=== PATIENT | female | born 1955 | race African-American/Black ===

== ENCOUNTER 2016-11-25 13:07 | Emergency (ER) | payer OTHER, MEDICARE ==
--- NOTE | 2016-11-25 13:19 | ER Document Report ---
ED Medical Screen (RME) - General Stated Complaint: BODY PAIN Time seen by provider: 13:16 Mode of Arrival: Wheelchair Information source: Patient Notes: 61-year-old female presents to ED for pain and body aches but denies fevers. She has a history of multiple sclerosis she thinks it is flared up on her right now she states usually when she flares up like that she needs Solu-Medrol and she has not had any since October of last year. States she's had MS since . States her primary doctor is Dr. Willingham and he sent. To the emergency room. I have greeted and performed a rapid initial assessment of this patient. A comprehensive ED assessment and evaluation of the patient, analysis of test results and completion of medical decision making process will be conducted by an additional ED providers. TRAVEL OUTSIDE OF THE [place] IN LAST 30 DAYS: No - Related Data Allergies/Adverse Reactions: No Known Allergies Allergy (Verified 02/09/15 05:53) Past Medical History - Past Medical History Cardiac Medical History: Reports: Hx Hypertension Musculoskeltal Medical History: Reports Hx Multiple Sclerosis, Reports Hx Musculoskeletal Trauma Psychiatric Medical History: Denies: Hx Depression Past Surgical History: Reports: Hx Hysterectomy, Hx Orthopedic Surgery - right elbow - Immunizations Hx Diphtheria, Pertussis, Tetanus Vaccination: Yes Physical Exam - Vital signs Vitals: Temp Pulse Resp BP Pulse Ox 98.1 F 60 14 120/70 97 11/25/16 13:14 11/25/16 13:14 11/25/16 13:14 11/25/16 13:14 11/25/16 13:14 Course - Vital Signs Vital signs: Temp Pulse Resp BP Pulse Ox 98.1 F 60 14 120/70 97 11/25/16 13:14 11/25/16 13:14 11/25/16 13:14 11/25/16 13:14 11/25/16 13:14
[2016-11-25] MEDS ORDERED: METHYLPREDNISOLONE INJ 1000 MG VIAL IV ONE (16:20)
--- NOTE | 2016-11-25 19:10 | ER Document Report ---
ED General - General Chief Complaint: Pain All Over Stated Complaint: BODY PAIN Mode of Arrival: Wheelchair Information source: Patient Notes: 61-year-old female presents to the emergency department complaining of generalized body aches. Reports generalized skin sensitivity and pain/ paresthesias. Patient reports history of MS since 1992 and states has similar intermittent episodes of flareups. Reports has taken ibuprofen at home with minimal relief. called her primary care provider today who instructed her to come to the emergency department for dose of Solu-Medrol. Juli has appointment with PCP on Thursday. Denies fever, chest pain, shortness of breath, or any other systemic or abnormal symptoms for her. TRAVEL OUTSIDE OF THE [place] IN LAST 30 DAYS: No - HPI Onset/Duration: Intermittent, Persistent Quality of pain: Achy Severity: Moderate Pain Level: 3 Associated symptoms: Body/muscle aches Similar symptoms previously: Yes Recently seen / treated by doctor: Yes - Related Data Allergies/Adverse Reactions: No Known Allergies Allergy (Verified 11/25/16 13:16) Past Medical History - General Information source: Patient - Social History Smoking Status: Never Smoker Chew tobacco use (# tins/day): No Drug Abuse: None Lives with: Family Family History: Reviewed & Not Pertinent Patient has suicidal ideation: No Patient has homicidal ideation: No - Past Medical History Cardiac Medical History: Reports: Hx Hypertension Renal/ Medical History: Denies: Hx Peritoneal Dialysis Musculoskeltal Medical History: Reports Hx Multiple Sclerosis, Reports Hx Musculoskeletal Trauma Psychiatric Medical History: Denies: Hx Depression Past Surgical History: Reports: Hx Hysterectomy, Hx Orthopedic Surgery - right elbow - Immunizations Hx Diphtheria, Pertussis, Tetanus Vaccination: Yes Hx Pneumococcal Vaccination: 04/10/14 Review of Systems - Review of Systems Constitutional: No symptoms reported EENT: No symptoms reported Cardiovascular: No symptoms reported Respiratory: No symptoms reported Gastrointestinal: No symptoms reported Genitourinary: No symptoms reported Female Genitourinary: No symptoms reported Musculoskeletal: See HPI Skin: No symptoms reported Hematologic/Lymphatic: No symptoms reported Neurological/Psychological: No symptoms reported -: Yes All other systems reviewed and negative Physical Exam - Vital signs Vitals: Temp Pulse Resp BP Pulse Ox 98.1 F 60 14 120/70 97 11/25/16 13:14 11/25/16 13:14 11/25/16 13:14 11/25/16 13:14 11/25/16 13:14 Interpretation: Normal - General General appearance: Appears well, Alert In distress: None - HEENT Head: Normocephalic, Atraumatic Eyes: Normal Pupils: PERRL - Respiratory Respiratory status: No respiratory distress Chest status: Nontender Breath sounds: Normal Chest palpation: Normal - Cardiovascular Rhythm: Regular Heart sounds: Normal auscultation Murmur: No Pulses: Normal: Radial Normal capillary refill: Yes - Abdominal Inspection: Normal Distension: No distension Bowel sounds: Normal Tenderness: Nontender Organomegaly: No organomegaly - Back Back: Normal, Nontender - Extremities General upper extremity: Normal inspection, Nontender, Normal color, Normal ROM , Normal strength, Normal temperature. No: Tender, Edema General lower extremity: Normal inspection, Nontender, Normal color, Normal ROM , Normal strength, Normal temperature, Normal weight bearing. No: Tender, Edema , Betty's sign - Neurological Neuro grossly intact: Yes Cognition: Normal Orientation: AAOx4 [place] Coma Scale Eye Opening: Spontaneous [place] Coma Scale Verbal: Oriented [place] Coma Scale Motor: Obeys Commands Mary Ann Coma Scale Total: 15 Speech: Normal Motor strength normal: LUE, RUE, LLE, RLE Sensory: Normal - Psychological Associated symptoms: Normal affect, Normal mood - Skin Skin Temperature: Warm Skin Moisture: Dry Skin Color: Normal Skin Turgor: Elastic Course - Re-evaluation Re-evalutation: 11/25/16 18:00 Patient hemodynamically stable, in no distress, afebrile, and appears well- hydrated. Physical exam unremarkable and patient reports no other subjective new or abnormal complaints aside from her usual flareup s/s. Patient was given 1 g Solu-Medrol IV dose and prescribed prednisone taper. Patient appears so for discharge and agrees to follow-up with primary care provider on Thursday with whom she has appointment and return to the emergency Department at any time for any worsening symptoms or concerns. Pt presentation, findings, ED care, and plan were discussed with ED physician Dr. Potter who concurs with evaluation and treatment plan. - Vital Signs Vital signs: Temp Pulse Resp BP Pulse Ox 98.5 F 68 14 116/72 96 11/25/16 19:29 11/25/16 19:29 11/25/16 19:29 11/25/16 19:29 11/25/16 19:29 Discharge - Discharge Clinical Impression: Multiple sclerosis exacerbation Condition: Stable Disposition: HOME, SELF-CARE Instructions: Steroid Medication Injection Additional Instructions: Keep your appointment and follow-up with your primary care provider this week as discussed. Return to the emergency department for any worsening symptoms or any concerns. Prescriptions: Prednisone [Deltasone 10 mg Tablet] 10 mg PO ASDIR PRN #21 tablet PRN Reason: Referrals: DARYL PEREZ MD [Primary Care Provider] - 11/28/16
[2016-11-25 19:30] VITALS: BP 116/72
== END 2016-11-25 19:25 | disposition home or self-care (01) ==
LOC: ER 13:07
DX: G35 Multiple sclerosis (principal); I10 Essential (primary) hypertension
CPT/HCPCS: 99283; 96374; J2930

== ENCOUNTER 2017-10-03 15:09 | Emergency (ER) | payer OTHER, MEDICARE ==
--- NOTE | 2017-10-03 15:33 | ER Document Report ---
ED Medical Screen (RME) - General Chief Complaint: General Weakness Stated Complaint: SLURRED SPEECH Time Seen by Provider: 10/03/17 15:25 Notes: Patient thinks she may be having a flare of her MS this morning. She says that she feels a little bit more confused and off balance than usual. She appears to be wheelchair bound. She has not been sick in any way recently. She had one other flareup last month, but it cleared up in a couple of hours and the patient did not require steroids for her flare. Not running any fever. No vomiting and no diarrhea. No UTI symptoms. No cough or cold or chest congestion. Patient is on weekly Avonex injection for her MS. TRAVEL OUTSIDE OF THE [place] IN LAST 30 DAYS: No - Related Data Allergies/Adverse Reactions: No Known Allergies Allergy (Verified 10/03/17 15:11) Past Medical History - Social History Chew tobacco use (# tins/day): No Frequency of alcohol use: None Drug Abuse: None - Past Medical History Cardiac Medical History: Reports: Hx Hypertension Renal/ Medical History: Denies: Hx Peritoneal Dialysis Musculoskeltal Medical History: Reports Hx Multiple Sclerosis, Reports Hx Musculoskeletal Trauma Psychiatric Medical History: Denies: Hx Depression Past Surgical History: Reports: Hx Hysterectomy, Hx Orthopedic Surgery - right elbow - Immunizations Hx Diphtheria, Pertussis, Tetanus Vaccination: Yes Physical Exam - Vital signs Vitals: Temp Pulse Resp BP Pulse Ox 98.1 F 71 12 128/71 H 98 10/03/17 15:15 10/03/17 15:15 10/03/17 15:15 10/03/17 15:15 10/03/17 15:15 Course - Vital Signs Vital signs: Temp Pulse Resp BP Pulse Ox 98.1 F 71 12 128/71 H 98 10/03/17 15:15 10/03/17 15:15 10/03/17 15:15 10/03/17 15:15 10/03/17 15:15
--- NOTE | 2017-10-03 15:58 | ER Document Report ---
ED General - General Chief Complaint: General Weakness Stated Complaint: SLURRED SPEECH Time Seen by Provider: 10/03/17 15:25 Notes: The patient is a 62-year-old female, past medical history, presents with an episode of mild slurred speech since 1300 today. She has had this multiple times in the past and her neurologist has attributed it to an MS flare. She says that she receives 1 g of Solu-Medrol with the prednisone taper and this usually helps her symptoms. Patient denies any other new neurologic symptoms and denies fevers, headache, head injury, chest pain, shortness of breath, blurry vision, increased weakness, numbness, tingling, abdominal pain or urinary symptoms. TRAVEL OUTSIDE OF THE [place] IN LAST 30 DAYS: No - Related Data Allergies/Adverse Reactions: No Known Allergies Allergy (Verified 10/03/17 15:11) Past Medical History - General Information source: Patient - Social History Smoking Status: Former Smoker Chew tobacco use (# tins/day): No Frequency of alcohol use: None Drug Abuse: None Family History: Reviewed & Not Pertinent Patient has suicidal ideation: No Patient has homicidal ideation: No - Past Medical History Cardiac Medical History: Reports: Hx Hypertension Renal/ Medical History: Denies: Hx Peritoneal Dialysis Musculoskeltal Medical History: Reports Hx Multiple Sclerosis, Reports Hx Musculoskeletal Trauma Psychiatric Medical History: Denies: Hx Depression Past Surgical History: Reports: Hx Hysterectomy, Hx Orthopedic Surgery - right elbow - Immunizations Hx Diphtheria, Pertussis, Tetanus Vaccination: Yes Hx Pneumococcal Vaccination: 04/10/14 Review of Systems - Review of Systems Notes: REVIEW OF SYSTEMS: CONSTITUTIONAL: -fevers, -chills EENT: -eye pain, -difficulty swallowing, -nasal congestion CARDIOVASCULAR:-chest pain, -syncope. RESPIRATORY: -cough, -SOB GASTROINTESTINAL: -abdominal pain, -nausea, -vomiting, -diarrhea GENITOURINARY: -dysuria, -hematuria MUSCULOSKELETAL: -back pain, -neck pain SKIN: -rash or skin lesions. HEMATOLOGIC: -easy bruising or bleeding. LYMPHATIC: -swollen, enlarged glands. NEUROLOGICAL: -altered mental status or loss of consciousness, -headache, + slurred speech, +increased weakness or numbness PSYCHIATRIC: -anxiety, -depression. ALL OTHER SYSTEMS REVIEWED AND NEGATIVE. Physical Exam - Vital signs Vitals: Temp Pulse Resp BP Pulse Ox 98.1 F 71 12 128/71 H 98 10/03/17 15:15 10/03/17 15:15 10/03/17 15:15 10/03/17 15:15 10/03/17 15:15 - Notes Notes: PHYSICAL EXAMINATION: GENERAL: Well-appearing, well-nourished and in no acute distress. HEAD: Atraumatic, normocephalic. EYES: Pupils equal round and reactive to light, extraocular movements intact, sclera anicteric, conjunctiva are normal. ENT: nares patent, oropharynx clear without exudates. Moist mucous membranes. NECK: Normal range of motion, supple without lymphadenopathy LUNGS: Breath sounds clear to auscultation bilaterally and equal. No wheezes rales or rhonchi. HEART: Regular rate and rhythm without murmurs ABDOMEN: Soft, nontender, normoactive bowel sounds. No guarding, no rebound. No masses appreciated. EXTREMITIES: Chronically contracted upper extremities. NEUROLOGICAL: Cranial nerves grossly intact. Mild slurring of speech. No acute sensory changes, PSYCH: Normal mood, normal affect. SKIN: Warm, Dry, normal turgor, no rashes or lesions noted. Course - Re-evaluation Re-evalutation: Patient with mild slurring of speech that started earlier today. She has no other acute neuro findings at this time. said that she has had multiple episodes like this that have been attributed to her MS flare. Attempted to contact her neurologist at the [place], but unsuccessful. Patient given a dose of 1 g Solu-Medrol and will begin a prednisone taper, as she says this usually controls her symptoms. Considered a CVA, but with multiple recurring episodes, this is most likely a MS flare. Pt's mild slurring of speech had already resolved after her Solumedrol in the ER. Given very strict return precautions and she understands. - Vital Signs Vital signs: Temp Pulse Resp BP Pulse Ox 98.1 F 65 16 114/76 97 10/03/17 19:01 10/03/17 19:01 10/03/17 19:01 10/03/17 19:01 10/03/17 19:01 - Laboratory Result Diagrams: 10/03/17 15:45 10/03/17 17:20 Laboratory results interpreted by me: 10/03/17 10/03/17 15:45 17:20 RDW 16.2 H Creatinine 0.50 L Calcium 10.3 H Discharge - Discharge Clinical Impression: Slurred speech, Multiple sclerosis exacerbation Condition: Stable Additional Instructions: Take the full course of steroids and follow-up with your neurologist for further evaluation and treatment. Return to the ER if you have any worsening symptoms or any other concerns. Prescriptions: Prednisone [Deltasone 10 mg Tablet] 10 mg PO ASDIR PRN #21 tablet PRN Reason: Referrals: JOSE TUCKER MD [ACTIVE STAFF] - Follow up as needed
[2017-10-03] MEDS ORDERED: METHYLPREDNISOLONE INJ 1000 MG VIAL IV ONE (16:08)
[2017-10-03 16:21] LABS: ABSOLUTE EOSINOPHILS # (AUTO) 0.1 10^3/uL (0.0-0.6); ABSOLUTE LYMPHOCYTES (AUTO) 1.7 10^3/uL (0.5-4.7); ABSOLUTE MONOCYTES (AUTO) 0.4 10^3/uL (0.1-1.4); EOSINOPHILS % (AUTO) 2.4 % (0-6); HEMATOCRIT 40.5 % (36.0-47.0); HEMOGLOBIN 13.5 g/dL (12.0-15.5); LYMPHOCYTES % (AUTO) 39.9 % (13-45); MEAN CORPUSCULAR HEMOGLOBIN 29.5 pg (27.0-33.4); MEAN CORPUSCULAR HGB CONC 33.2 g/dL (32.0-36.0); MEAN CORPUSCULAR VOLUME 89 fl (80-97); MONOCYTES % (AUTO) 9.4 % (3-13); RED BLOOD COUNT 4.57 10^6/uL (3.72-5.28); RED CELL DISTRIBUTION WIDTH 16.2 % (11.5-14.0); SEGMENTED NEUTROPHILS % (AUTO) 47.3 % (42-78); WHITE BLOOD COUNT 4.3 10^3/uL (4.0-10.5)
[2017-10-03 18:20] LABS: ALANINE AMINOTRANSFERASE 22 U/L (9-52); ALBUMIN 4.6 g/dL (3.5-5.0); ALKALINE PHOSPHATASE 104 U/L (38-126); ANION GAP 13 (5-19); ASPARTATE AMINO TRANSFERASE 20 U/L (14-36); BILIRUBIN,DIRECT 0.2 mg/dL (0.0-0.4); BILIRUBIN,TOTAL 0.2 mg/dL (0.2-1.3); BLOOD UREA NITROGEN 13 mg/dL (7-20); CALCIUM 10.3 mg/dL (8.4-10.2); CARBON DIOXIDE 23 mmol/L (22-30); CHLORIDE 107 mmol/L (98-107); GLUCOSE 109 mg/dL (75-110); POTASSIUM 4.5 mmol/L (3.6-5.0); SODIUM 143.4 mmol/L (137-145); TOTAL PROTEIN 7.8 g/dL (6.3-8.2)
[2017-10-03 19:01] VITALS: BP 114/76
== END 2017-10-03 19:50 | disposition home or self-care (01) ==
LOC: ER 15:09
DX: G35 Multiple sclerosis (principal); R47.81 Slurred speech; R53.1 Weakness; Z79.899 Other long term (current) drug therapy; Z87.891 Personal history of nicotine dependence
CPT/HCPCS: 99284; 96374; 36415; 85025; 80053; J2930

== ENCOUNTER 2017-12-02 07:43 | Inpatient (IN) | payer OTHER, MEDICARE ==
--- NOTE | 2017-12-02 07:58 | ER Document Report ---
ED Neuro Symptoms/Deficit - General Chief Complaint: Altered Mental Status Stated Complaint: ALTERED MENTAL STATUS Time Seen by Provider: 12/02/17 07:58 Notes: 62-year-old female. History of MS. Has had worsening slurred speech and headache over the last several days. states that she has had this before and it is usually worsening of her MS. Followed by Dr. Carrion with neurology. Primary care doctor at the [facility] in May. No fevers. Does have a healing sacral decubitus which according to is much better than before. No other lesions reported. Speech seems to be more slurred. Increased weakness in her hands. Patient is paralyzed from the neck down. TRAVEL OUTSIDE OF THE [place] IN LAST 30 DAYS: No - HPI Patient complains to provider of: Paresthesia, Speech Impairment, Weakness Symptoms are: Constant, Worse/persistent - Related Data Allergies/Adverse Reactions: No Known Allergies Allergy (Verified 12/02/17 07:45) Past Medical History - General Information source: Patient, Relative - Social History Smoking Status: Never Smoker Cigarette use (# per day): No Frequency of alcohol use: None Drug Abuse: None Lives with: Spouse/Significant other Family History: Reviewed & Not Pertinent - Past Medical History Cardiac Medical History: Reports: Hx Hypertension Renal/ Medical History: Denies: Hx Peritoneal Dialysis Musculoskeltal Medical History: Reports Hx Multiple Sclerosis, Reports Hx Musculoskeletal Trauma Psychiatric Medical History: Denies: Hx Depression Past Surgical History: Reports: Hx Hysterectomy, Hx Orthopedic Surgery - right elbow - Immunizations Hx Diphtheria, Pertussis, Tetanus Vaccination: Yes Hx Pneumococcal Vaccination: 04/10/14 Review of Systems - Review of Systems Constitutional: Weakness. denies: Chills, Fever, Malaise EENT: Blurred vision. denies: Ear pain, Throat swelling Cardiovascular: denies: Chest pain, Palpitations, Heart racing Respiratory: denies: Cough, Hurts to breathe Physical Exam - Vital signs Vitals: Temp Pulse Resp BP Pulse Ox 98.9 F 72 18 142/83 H 98 12/02/17 07:48 12/02/17 07:48 12/02/17 07:48 12/02/17 07:48 12/02/17 07:48 Interpretation: Normal - General General appearance: Appears well, Alert - HEENT Head: Normocephalic, Atraumatic Eyes: Normal Pupils: PERRL - Respiratory Respiratory status: No respiratory distress Chest status: Nontender Breath sounds: Rales Chest palpation: Normal - Cardiovascular Rhythm: Regular Heart sounds: Normal auscultation Murmur: No - Abdominal Inspection: Normal Distension: No distension Bowel sounds: Normal Tenderness: Nontender Organomegaly: No organomegaly - Back Back: Normal, Nontender - Extremities General upper extremity: Normal inspection, Nontender, Normal color, Normal ROM , Normal temperature General lower extremity: Normal inspection, Nontender, Normal color, Normal ROM , Normal temperature, Normal weight bearing. No: Betty's sign - Neurological Neuro grossly intact: Yes Cognition: Normal Orientation: AAOx4 [place] Coma Scale Eye Opening: Spontaneous Sensory: Normal Notes: She with difficulty with speech, has paralysis noted of the upper and lower extremities. - Psychological Associated symptoms: Normal affect, Normal mood - Skin Skin Temperature: Warm Skin Moisture: Dry Skin Color: Normal Course - Re-evaluation Re-evalutation: 12/02/17 09:51 More than likely this represents MS flare. Will get CT, urinalysis, blood work. Will attempt to get a steroid dose. Will attempt to contact patient's neurologist at this time. 12/02/17 13:25 Uncertain exactly what is going on at this time. Likely MS flare but does have some rales in the bilateral lower lobes. Will get a CT scan of the chest. CT head. Labs and reassess. Will give steroid bolus. Holding on fluids at this time. 12/02/17 13:26 Consulted the hospitalist. Will admit to the hospital at this time. CT scan of the chest pending. - Vital Signs Vital signs: Temp Pulse Resp BP Pulse Ox 99.2 F 77 18 133/65 H 98 12/02/17 11:47 12/02/17 11:47 12/02/17 11:47 12/02/17 11:47 12/02/17 11:47 - Laboratory Result Diagrams: 12/02/17 11:11 12/02/17 11:11 Laboratory results interpreted by me: 12/02/17 12/02/17 11:11 11:11 RDW 16.5 H Seg Neutrophils % 81.7 H Lymphocytes % 10.9 L Alkaline Phosphatase 131 H Discharge - Discharge Clinical Impression: Multiple sclerosis exacerbation Condition: Good Disposition: ADMITTED INPATIENT Admitting Provider: Hospitalist - Dr. Magdaleno Unit Admitted: [facility]
--- NOTE | 2017-12-02 09:31 | RADIOLOGY REPORT (SQ) ---
EXAM DESCRIPTION: CHEST SINGLE VIEW COMPLETED DATE/TIME: 12/02/2017 9:10 am REASON FOR STUDY: altered COMPARISON: None. EXAM PARAMETERS: NUMBER OF VIEWS: One view. TECHNIQUE: Single frontal radiographic view of the chest acquired. RADIATION DOSE: NA LIMITATIONS: None. FINDINGS: LUNGS AND PLEURA: There is bibasilar infiltrate or atelectasis. MEDIASTINUM AND HILAR STRUCTURES: No masses. Contour normal. HEART AND VASCULAR STRUCTURES: The heart is borderline in size. Pulmonary vasculature is normal. BONES: No acute findings. HARDWARE: None in the chest. OTHER: There is an ovoid radiographic artifact overlying the right lower chest. IMPRESSION: Bibasilar infiltrate or atelectasis. Otherwise, no significant abnormality seen. TECHNICAL DOCUMENTATION: JOB ID: [id number] 2010 [employer]- All Rights Reserved
--- NOTE | 2017-12-02 10:13 | RADIOLOGY REPORT (SQ) ---
EXAM DESCRIPTION: CT HEAD WITHOUT COMPLETED DATE/TIME: 12/02/2017 9:46 am REASON FOR STUDY: altered, hx of MS COMPARISON: MRI of the brain with contrast 07/09/2018. TECHNIQUE: Axial images acquired through the brain without intravenous contrast. Images reviewed wi th bone, brain and subdural windows. Images stored on PACS. All CT scanners at this facility use dose modulation, iterative reconstruction, and/or weight based d osing when appropriate to reduce radiation dose to as low as reasonably achievable (ALARA). [facility]: Dose Right [facility]: CareDose [facility]: Dose Right [facility]: Teradose 4D [facility]: Smart [employer] RADIATION DOSE: CT Rad equipment meets quality standard of care and radiation dose reduction techniq ues were employed. CTDIvol: 64.6 mGy. DLP: 1163 mGy-cm. mGy. LIMITATIONS: None. FINDINGS: VENTRICLES: Normal size and contour. CEREBRUM: There are vague areas of decreased attenuation noted in the subcortical and periventricular white matter compatible with demyelinating disease better visualized on prior MRI. POSTERIOR FOSSA AND CEREBELLUM: : Previously noted foci of signal alteration on MRI within the middl e cerebral peduncle, basilar vania, and cerebral peduncle is a not well visualized. EXTRAAXIAL SPACES: No fluid collections. No masses. ORBITS AND GLOBE: No intra- or extraconal masses. Normal contour of globe without masses. CALVARIUM: No fracture. PARANASAL SINUSES: No fluid or mucosal thickening. SOFT TISSUES: No mass or hematoma. 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 IMPRESSION: Finding compatible with a known history of demyelinating disease. 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 COMMENT: Quality ID # [id number]: Final reports with documentation of one or more dose reduction techniques (e.g., Automated exposure control, adjustment of the mA and/or kV according to patient size, use of iterative reconstruction technique) TECHNICAL DOCUMENTATION: JOB ID: [id number]- All Rights Reserved
[2017-12-02 10:28] LABS: APPEARANCE,URINE SLIGHTLY-CLOUDY; BILIRUBIN,URINE NEGATIVE (NEGATIVE); COLOR,URINE YELLOW; GLUCOSE, URINE NEGATIVE (NEGATIVE); KETONES,URINE NEGATIVE (NEGATIVE); LEUKOCYTE ESTERASE,URINE NEGATIVE (NEGATIVE); NITRITE,URINE NEGATIVE (NEGATIVE); PROTEIN,URINE NEGATIVE (NEGATIVE); URINE SPECIFIC GRAVITY 1.017; UROBILINOGEN,URINE NEGATIVE mg/dL (<2.0)
[2017-12-02] MEDS ORDERED: METHYLPREDNISOLONE INJ 1000 MG VIAL IV ONE (11:07)
[2017-12-02 11:30] LABS: ABSOLUTE LYMPHOCYTES (AUTO) 0.7 10^3/uL (0.5-4.7); ABSOLUTE MONOCYTES (AUTO) 0.4 10^3/uL (0.1-1.4); ABSOLUTE NEUT (AUTO) 5.4 10^3/uL (1.7-8.2); BASOPHILS % (AUTO) 0.6 % (0-2); EOSINOPHILS % (AUTO) 0.6 % (0-6); HEMATOCRIT 37.9 % (36.0-47.0); LYMPHOCYTES % (AUTO) 10.9 % (13-45); MEAN CORPUSCULAR HEMOGLOBIN 29.3 pg (27.0-33.4); MEAN CORPUSCULAR HGB CONC 34.2 g/dL (32.0-36.0); MEAN CORPUSCULAR VOLUME 86 fl (80-97); MONOCYTES % (AUTO) 6.2 % (3-13); PLATELET COUNT 192 10^3/uL (150-450); RED BLOOD COUNT 4.42 10^6/uL (3.72-5.28); RED CELL DISTRIBUTION WIDTH 16.5 % (11.5-14.0); SEGMENTED NEUTROPHILS % (AUTO) 81.7 % (42-78); TOTAL CELLS COUNTED % (AUTO) 100 %; WHITE BLOOD COUNT 6.6 10^3/uL (4.0-10.5)
[2017-12-02 11:45] LABS: ALANINE AMINOTRANSFERASE 28 U/L (9-52); ALBUMIN 4.4 g/dL (3.5-5.0); ALKALINE PHOSPHATASE 131 U/L (38-126); ANION GAP 10 (5-19); ASPARTATE AMINO TRANSFERASE 31 U/L (14-36); BILIRUBIN,DIRECT 0.2 mg/dL (0.0-0.4); BILIRUBIN,TOTAL 0.4 mg/dL (0.2-1.3); BLOOD UREA NITROGEN 13 mg/dL (7-20); CALCIUM 9.8 mg/dL (8.4-10.2); CARBON DIOXIDE 25 mmol/L (22-30); CHLORIDE 102 mmol/L (98-107); GLUCOSE 101 mg/dL (75-110); SODIUM 137.3 mmol/L (137-145); TOTAL PROTEIN 7.6 g/dL (6.3-8.2)
[2017-12-02] MEDS ORDERED: NORMAL SALINE 1000 ML 1,000 ML IV ONE (12:31)
[2017-12-02] MEDS ORDERED: KETOROLAC TROMETHAMINE INJ/PF 30 MG/1 ML SDV IV ONE (12:52)
--- NOTE | 2017-12-02 13:58 | RADIOLOGY REPORT (SQ) ---
EXAM DESCRIPTION: CT CHEST WITHOUT COMPLETED DATE/TIME: 12/02/2017 1:36 pm REASON FOR STUDY: sob COMPARISON: 10/07/2015 TECHNIQUE: CT scan performed of the chest without intravenous contrast. Images reviewed with lung, soft tissue and bone windows. Reconstructed coronal and sagittal MPR images reviewed. All images st ored on PACS. All CT scanners at this facility use dose modulation, iterative reconstruction, and/or weight based d osing when appropriate to reduce radiation dose to as low as reasonably achievable (ALARA). [facility]: Dose Right [facility]: CareDose [facility]: Dose Right [facility]: Teradose 4D [facility]: Smart [employer] RADIATION DOSE: CT Rad equipment meets quality standard of care and radiation dose reduction techniq ues were employed. CTDIvol: 10.7 mGy. DLP: 358 mGy-cm. mGy. LIMITATIONS: No technical limitations. FINDINGS: LUNGS AND PLEURA: Small bands of increased density are seen in the right middle lobe, left upper lobe and both lower lobes. These were present on the prior study and are less prominent. Jazzmine earance suggests combination of atelectasis and scarring. Component of pneumonia cannot be excluded. No definite pneumonia. No effusions. HILAR AND MEDIASTINAL STRUCTURES: No identified masses or abnormal nodes. No obvious aneurysm. HEART AND VASCULAR STRUCTURES: No aneurysm. No pericardial effusion. UPPER ABDOMEN: Gallbladder appears distended but is otherwise unremarkable. . THYROID AND OTHER SOFT TISSUES: No masses. No adenopathy. BONES: No significant finding. HARDWARE: None in the chest. OTHER: No other significant findings. IMPRESSION: Linear bands of increased density likely atelectasis or scarring. Component of pneumoni a cannot be excluded. TECHNICAL DOCUMENTATION: JOB ID: [id number] Quality ID # [id number]: Final reports with documentation of one or more dose reduction techniques (e.g., Au tomated exposure control, adjustment of the mA and/or kV according to patient size, use of iterative reconstruction technique) 2010 [employer]- All Rights Reserved
[2017-12-02] MEDS ORDERED: IPRATROPIUM/ALBUTEROL 0.5-2.5 MG/3 ML AMPUL NEB PRN (14:12)
[2017-12-02] MEDS ORDERED: ONDANSETRON 4 MG TAB.RAPDIS PO PRN (14:12)
[2017-12-02] MEDS ORDERED: DEXTROSE 40% GEL 15 GM TUBE PO PRN ×2 (14:22)
[2017-12-02] MEDS ORDERED: DEXTROSE 50%-WATER 25 GM/50 ML DISP.SYRIN IV PRN ×2 (14:22)
[2017-12-02] MEDS ORDERED: GLUCAGON,HUMAN RECOMB 1 MG INJ IM PRN (14:22)
--- NOTE | 2017-12-02 14:35 | PDOC H&P ---
History of Present Illness Admission Date/PCP: 12/02/17 13:37 Patient complains of: states that patient was unable to speak this morning. History of Present Illness: COOKIE ARCHIBALD is a 62 year old female presented to the emergency room after states that patient was not able to speak this morning. reports that patient is able to speak however nursing states that they have noted that patient is running a low-grade fever. ER doctor called stating that patient's chest x-ray was unrevealing. ER doctor also reported that patient appeared to be dehydrated and was given IV fluids. CT was requested to evaluate for aspiration pneumonia. reports that patient does lay flat at night. reports that her physician is the [facility]. Patient's also reports that patient does see a private neurologist by the name of Dr. Carrion. reports that patient was doing well until today. also reports that patient has been complaining of a headache for about 2-3 days. As per reports that he has been given medication that the [facility] has prescribed for her for headaches. also reports that patient has a left sided butt wound. Past Medical History Cardiac Medical History: Reports: Hypertension Pulmonary Medical History: Reports: Pneumonia - aspiration Psychiatric Medical History: Denies: Depression Hematology: Reports: Anemia Past Surgical History Past Surgical History: Reports: Hysterectomy, Orthopedic Surgery - right elbow Social History Lives with: Spouse/Significant other Smoking Status: Never Smoker Frequency of Alcohol Use: None Hx Recreational Drug Use: No Drugs: None Hx Prescription Drug Abuse: No - Advance Directive Resuscitation Status: Full Code Family History Family History: Reviewed & Not Pertinent Parental Family History Reviewed: Yes Children Family History Reviewed: Yes Sibling(s) Family History Reviewed.: Yes Medication/Allergy Allergies/Adverse Reactions: No Known Allergies Allergy (Verified 12/02/17 07:45) Review of Systems Constitutional: ABSENT: chills, fever(s), headache(s), weight gain, weight loss Eyes: ABSENT: visual disturbances Ears: ABSENT: hearing changes Nose, Mouth, and Throat: PRESENT: headache(s) Cardiovascular: ABSENT: chest pain, dyspnea on exertion, edema, orthropnea, palpitations Respiratory: ABSENT: cough, hemoptysis Gastrointestinal: ABSENT: abdominal pain, constipation, diarrhea, hematemesis, hematochezia, nausea, vomiting Genitourinary: ABSENT: dysuria, hematuria Musculoskeletal: ABSENT: joint swelling Integumentary: ABSENT: rash, wounds Neurological: ABSENT: abnormal gait, abnormal speech, confusion, dizziness, focal weakness, syncope Psychiatric: ABSENT: anxiety, depression, homidical ideation, suicidal ideation Endocrine: ABSENT: cold intolerance, heat intolerance, polydipsia, polyuria Hematologic/Lymphatic: ABSENT: easy bleeding, easy bruising Physical Exam Vital Signs: Temp Pulse Resp BP Pulse Ox 99.2 F 77 13 133/65 H 95 12/02/17 11:47 12/02/17 11:47 12/02/17 14:05 12/02/17 11:47 12/02/17 14:05 General appearance: PRESENT: no acute distress, well-developed, well-nourished Head exam: PRESENT: atraumatic, normocephalic Eye exam: PRESENT: conjunctiva pink, EOMI. ABSENT: scleral icterus Ear exam: PRESENT: normal external ear exam Mouth exam: PRESENT: moist, tongue midline Neck exam: ABSENT: carotid bruit, JVD, lymphadenopathy, thyromegaly Respiratory exam: PRESENT: crackles, other - Diminished at bases with crackles heard. ABSENT: rales, rhonchi, wheezes Cardiovascular exam: PRESENT: RRR. ABSENT: diastolic murmur, rubs, systolic murmur Pulses: PRESENT: normal dorsalis pedis pul Vascular exam: PRESENT: normal capillary refill GI/Abdominal exam: PRESENT: normal bowel sounds, soft. ABSENT: distended, guarding, mass, organolmegaly, rebound, tenderness Rectal exam: PRESENT: deferred Extremities exam: PRESENT: other - Upper extremity contracture with lower extremity contractures Musculoskeletal exam: PRESENT: other - Upper and lower extremity contractures Neurological exam: PRESENT: alert, altered, oriented to person, oriented to place, oriented to time Psychiatric exam: PRESENT: appropriate affect, normal mood. ABSENT: homicidal ideation, suicidal ideation Skin exam: PRESENT: dry, intact, warm. ABSENT: cyanosis, rash Results Impressions: Chest X-Ray 12/02/17 08:33 IMPRESSION: Bibasilar infiltrate or atelectasis. Otherwise, no significant abnormality seen. Head CT 12/02/17 08:33 IMPRESSION: Finding compatible with a known history of demyelinating disease. Findings compatible with left tentorial meningioma EVIDENCE OF ACUTE STROKE: NO. Chest CT 12/02/17 13:13 IMPRESSION: Linear bands of increased density likely atelectasis or scarring. Component of pneumonia cannot be excluded. Assessment & Plan - Diagnosis (1) Multiple sclerosis exacerbation Is this a current diagnosis for this admission?: Yes Plan: We will continue patient on steroids. Unsure if this is actually an MS exacerbation. Will monitor patient for the next 3 days. (2) Aspiration pneumonia Qualifiers: Aspiration pneumonia type: unspecified Laterality: bilateral Lung location: unspecified part of lung Qualified Code(s): J69.0 - Pneumonitis due to inhalation of food and vomit Is this a current diagnosis for this admission?: Yes Plan: Place patient on Zosyn. Will order daily chest x-rays. Patient with coarse breath sounds heard in all lung palomo. Will have speech evaluate patient's ability to swallow safely. (3) Quadriplegia and quadriparesis Is this a current diagnosis for this admission?: Yes Plan: Supportive care. (4) Dysphagia Is this a current diagnosis for this admission?: Yes Plan: We will have speech evaluate patient. In the meantime will place patient on clear liquids. (5) DVT prophylaxis Is this a current diagnosis for this admission?: Yes Plan: SCDS - Time Time Spent: 30 to 50 Minutes
[2017-12-02] MEDS: RINGERS SOLUTION,LACTATED 1,000 ML IV PRN (15:43)
[2017-12-02] MEDS: INSULIN LISPRO 100 UNIT/ML 3 ML VIAL SUBCUT PRN (16:28)
[2017-12-02] MEDS: PIPERACILLIN SODIUM/TAZOBACTAM 3.375 GM in NORMAL SALINE 100 ML IV SCH (19:30)
[2017-12-03] MEDS: PIPERACILLIN SODIUM/TAZOBACTAM 3.375 GM in NORMAL SALINE 100 ML IV SCH ×4 (00:45→18:19)
[2017-12-03 05:37] LABS: ABSOLUTE LYMPHOCYTES (AUTO) 0.5 10^3/uL (0.5-4.7); ABSOLUTE MONOCYTES (AUTO) 0.2 10^3/uL (0.1-1.4); ABSOLUTE NEUT (AUTO) 5.2 10^3/uL (1.7-8.2); BASOPHILS % (AUTO) 0.1 % (0-2); HEMOGLOBIN 11.7 g/dL (12.0-15.5); LYMPHOCYTES % (AUTO) 9.2 % (13-45); MEAN CORPUSCULAR HEMOGLOBIN 28.9 pg (27.0-33.4); MEAN CORPUSCULAR HGB CONC 33.5 g/dL (32.0-36.0); MEAN CORPUSCULAR VOLUME 86 fl (80-97); MONOCYTES % (AUTO) 3.7 % (3-13); PLATELET COUNT 179 10^3/uL (150-450); RED BLOOD COUNT 4.07 10^6/uL (3.72-5.28); RED CELL DISTRIBUTION WIDTH 16.5 % (11.5-14.0); TOTAL CELLS COUNTED % (AUTO) 100 %; WHITE BLOOD COUNT 5.9 10^3/uL (4.0-10.5)
[2017-12-03 05:55] LABS: ALANINE AMINOTRANSFERASE 34 U/L (9-52); ALBUMIN 3.6 g/dL (3.5-5.0); ALKALINE PHOSPHATASE 105 U/L (38-126); ANION GAP 11 (5-19); ASPARTATE AMINO TRANSFERASE 22 U/L (14-36); BILIRUBIN,DIRECT 0.4 mg/dL (0.0-0.4); BILIRUBIN,TOTAL 0.4 mg/dL (0.2-1.3); BLOOD UREA NITROGEN 15 mg/dL (7-20); CALCIUM 9.4 mg/dL (8.4-10.2); CARBON DIOXIDE 21 mmol/L (22-30); CHLORIDE 104 mmol/L (98-107); GLUCOSE 160 mg/dL (75-110); POTASSIUM 4.2 mmol/L (3.6-5.0); SODIUM 136.4 mmol/L (137-145); TOTAL PROTEIN 6.9 g/dL (6.3-8.2)
--- NOTE | 2017-12-03 06:38 | RADIOLOGY REPORT (SQ) ---
EXAM DESCRIPTION: CHEST SINGLE VIEW CLINICAL HISTORY: Concern for Pneumonia COMPARISON: 12/02/2017 FINDINGS: Single frontal view of the chest. The cardiomediastinal silhouette has normal size and contour. Repair aeration the left lung base. No pneumothorax or pleural effusion. Curvilinear right basilar opacity likely representing discoid atelectasis. No displaced rib fractures identified. Upper abdominal soft tissues are unremarkable. IMPRESSION: 1. Improved aeration the lung bases bilaterally with likely discoid atelectasis in the right lung base.
[2017-12-03] MEDS: RINGERS SOLUTION,LACTATED 1,000 ML IV PRN (08:44)
[2017-12-03] MEDS ORDERED: METHYLPREDNISOLONE SOD SUCC 1,000 MG in DEXTROSE 5%-WATER 100 ML IV SCH (10:00)
[2017-12-03] MEDS: INSULIN LISPRO 100 UNIT/ML 3 ML VIAL SUBCUT PRN (12:50)
--- NOTE | 2017-12-03 15:40 | PDOC PROGRESS REPORT ---
Subjective Progress Note for:: 12/03/17 Subjective:: Patient reports that she is feeling much better than she did yesterday. Patient states that her speech is close to baseline. Reason For Visit: ASPIRATION PNEUMONIA,MS FLARE Physical Exam Vital Signs: Temp Pulse Resp BP Pulse Ox 98.0 F 100 16 128/77 H 98 12/03/17 10:37 12/03/17 14:19 12/03/17 14:19 12/03/17 09:01 12/03/17 14:19 Intake & Output 12/02/17 12/03/17 12/04/17 06:59 06:59 06:59 Output Total 1400 Balance -1400 General appearance: PRESENT: no acute distress, well-developed, well-nourished Head exam: PRESENT: atraumatic, normocephalic Eye exam: PRESENT: conjunctiva pink, EOMI. ABSENT: scleral icterus Ear exam: PRESENT: normal external ear exam Mouth exam: PRESENT: moist, tongue midline Neck exam: ABSENT: carotid bruit, JVD, lymphadenopathy, thyromegaly Respiratory exam: PRESENT: clear to auscultation subha. ABSENT: rales, rhonchi, wheezes Cardiovascular exam: PRESENT: RRR. ABSENT: diastolic murmur, rubs, systolic murmur Pulses: PRESENT: normal dorsalis pedis pul Vascular exam: PRESENT: normal capillary refill GI/Abdominal exam: PRESENT: normal bowel sounds, soft. ABSENT: distended, guarding, mass, organolmegaly, rebound, tenderness Rectal exam: PRESENT: deferred Extremities exam: PRESENT: other - Upper and lower extremity contractures Musculoskeletal exam: PRESENT: other - Upper and lower extremity contractures Neurological exam: PRESENT: alert, altered, oriented to person, oriented to place, oriented to time Psychiatric exam: PRESENT: appropriate affect, normal mood. ABSENT: homicidal ideation, suicidal ideation Skin exam: PRESENT: dry, intact, warm. ABSENT: cyanosis, rash Results Laboratory Results: 12/03/17 05:15 12/03/17 05:15 12/03/17 12/03/17 05:15 05:15 WBC 5.9 RBC 4.07 Hgb 11.7 L Hct 35.0 L MCV 86 MCH 28.9 MCHC 33.5 RDW 16.5 H Plt Count 179 Seg Neutrophils % 87.0 H Lymphocytes % 9.2 L Monocytes % 3.7 Eosinophils % 0.0 Basophils % 0.1 Absolute Neutrophils 5.2 Absolute Lymphocytes 0.5 Absolute Monocytes 0.2 Absolute Eosinophils 0.0 Absolute Basophils 0.0 Sodium 136.4 L Potassium 4.2 Chloride 104 Carbon Dioxide 21 L Anion Gap 11 BUN 15 Creatinine 0.80 Est GFR ( Amer) > 60 Est GFR (Non-Af Amer) > 60 Glucose 160 H Calcium 9.4 Magnesium 2.0 Total Bilirubin 0.4 AST 22 ALT 34 Alkaline Phosphatase 105 Total Protein 6.9 Albumin 3.6 Impressions: Head CT 12/02/17 08:33 IMPRESSION: Finding compatible with a known history of demyelinating disease. Findings compatible with left tentorial meningioma EVIDENCE OF ACUTE STROKE: NO. Chest CT 12/02/17 13:13 IMPRESSION: Linear bands of increased density likely atelectasis or scarring. Component of pneumonia cannot be excluded. Chest X-Ray 12/03/17 06:00 IMPRESSION: 1. Improved aeration the lung bases bilaterally with likely discoid atelectasis in the right lung base. Assessment & Plan - Diagnosis (1) Multiple sclerosis exacerbation Is this a current diagnosis for this admission?: Yes Plan: We will continue patient on steroids. Will monitor patient for the next 3 days. (2) Aspiration pneumonia Qualifiers: Aspiration pneumonia type: unspecified Laterality: bilateral Lung location: unspecified part of lung Qualified Code(s): J69.0 - Pneumonitis due to inhalation of food and vomit Is this a current diagnosis for this admission?: Yes Plan: Place patient on Zosyn. Will order Flutter Valve. (3) Quadriplegia and quadriparesis Is this a current diagnosis for this admission?: Yes Plan: Supportive care. (4) Dysphagia Is this a current diagnosis for this admission?: Yes Plan: Patient passed speech evaluation will advance diet. (5) DVT prophylaxis Is this a current diagnosis for this admission?: Yes Plan: SCDS - Time Time Spent with patient: 15-24 minutes
[2017-12-03] MEDS ORDERED: SUMATRIPTAN SUCCINATE 100 MG TABLET PO PRN (18:38)
[2017-12-03] MEDS ORDERED: MECLIZINE HCL 25 MG TABLET PO PRN (18:38)
[2017-12-03] MEDS ORDERED: BENZONATATE 100 MG CAPSULE PO PRN (18:38)
[2017-12-03] MEDS: GABAPENTIN 300 MG CAPSULE PO SCH (23:08)
[2017-12-03] MEDS: MICAFUNGIN SODIUM 100 MG in NORMAL SALINE 100 ML IV SCH (23:09)
[2017-12-03] MEDS: BACLOFEN 20 MG TABLET PO SCH (23:09)
[2017-12-04] MEDS: PIPERACILLIN SODIUM/TAZOBACTAM 3.375 GM in NORMAL SALINE 100 ML IV SCH ×5 (00:02→23:31)
[2017-12-04] MEDS: BUTALB/ACETAMINOPHEN/CAFFEINE 1 TAB EACH PO PRN (00:04)
[2017-12-04] MEDS ORDERED: SUMATRIPTAN SUCCINATE 100 MG TABLET ONE (01:19)
[2017-12-04] MEDS: BACLOFEN 20 MG TABLET PO SCH ×3 (05:32→23:25)
[2017-12-04] MEDS: LANSOPRAZOLE 30 MG TAB.RAP.DR PO SCH (05:32)
[2017-12-04] MEDS: GABAPENTIN 300 MG CAPSULE PO SCH ×3 (05:32→23:25)
[2017-12-04 07:09] LABS: ABSOLUTE LYMPHOCYTES (AUTO) 0.7 10^3/uL (0.5-4.7); ABSOLUTE MONOCYTES (AUTO) 0.8 10^3/uL (0.1-1.4); ABSOLUTE NEUT (AUTO) 6.1 10^3/uL (1.7-8.2); BASOPHILS % (AUTO) 0.2 % (0-2); EOSINOPHILS % (AUTO) 0.2 % (0-6); HEMATOCRIT 33.8 % (36.0-47.0); HEMOGLOBIN 11.4 g/dL (12.0-15.5); LYMPHOCYTES % (AUTO) 9.1 % (13-45); MEAN CORPUSCULAR HGB CONC 33.7 g/dL (32.0-36.0); MEAN CORPUSCULAR VOLUME 86 fl (80-97); MONOCYTES % (AUTO) 10.7 % (3-13); PLATELET COUNT 169 10^3/uL (150-450); RED BLOOD COUNT 3.93 10^6/uL (3.72-5.28); SEGMENTED NEUTROPHILS % (AUTO) 79.8 % (42-78); TOTAL CELLS COUNTED % (AUTO) 100 %; WHITE BLOOD COUNT 7.7 10^3/uL (4.0-10.5)
[2017-12-04 07:28] LABS: ALANINE AMINOTRANSFERASE 28 U/L (9-52); ALBUMIN 3.6 g/dL (3.5-5.0); ALKALINE PHOSPHATASE 89 U/L (38-126); ANION GAP 11 (5-19); ASPARTATE AMINO TRANSFERASE 43 U/L (14-36); BILIRUBIN,DIRECT 0.4 mg/dL (0.0-0.4); BILIRUBIN,TOTAL 0.4 mg/dL (0.2-1.3); BLOOD UREA NITROGEN 14 mg/dL (7-20); CALCIUM 9.3 mg/dL (8.4-10.2); CARBON DIOXIDE 23 mmol/L (22-30); CHLORIDE 107 mmol/L (98-107); GLUCOSE 125 mg/dL (75-110); POTASSIUM 3.8 mmol/L (3.6-5.0); SODIUM 140.6 mmol/L (137-145); TOTAL PROTEIN 7.1 g/dL (6.3-8.2)
[2017-12-04] MEDS ORDERED: INDOMETHACIN 25 MG CAPSULE PO SCH (08:00)
[2017-12-04] MEDS: INDOMETHACIN 50 MG CAPSULE PO SCH ×2 (08:01→18:12)
[2017-12-04] MEDS ORDERED: (PENDING PHARMACY ID) (Cholecalciferol (Vitamin D3) [Vitamin D3] 1,000 UNIT) PO SCH (10:00)
[2017-12-04] MEDS ORDERED: (PENDING PHARMACY ID) (Citalopram Hydrobromide [Celexa 40 Mg Tablet] 40 MG) PO SCH (10:00)
[2017-12-04] MEDS ORDERED: GINKGO BILOBA 120 MG PO SCH (10:00)
[2017-12-04] MEDS: CHOLECALCIFEROL (D3) 1,000 UNIT TABLET PO SCH ×2 (10:44→18:11)
[2017-12-04] MEDS: MULTIVITAMIN TABLET PO SCH (10:45)
[2017-12-04] MEDS: CITALOPRAM HYDROBROMIDE 20 MG TABLET PO SCH (10:45)
[2017-12-04] MEDS: CALCIUM CARBONATE 500 MG TABLET PO SCH (10:45)
--- NOTE | 2017-12-04 10:50 | PDOC PROGRESS REPORT ---
Subjective Progress Note for:: 12/04/17 Subjective:: Patient second culture was positive for yeast. Patient was started on micafungin overnight. Patient states that she is feeling much better. Nursing states that they have not had any issues with patient overnight. Reason For Visit: ASPIRATION PNEUMONIA,MS FLARE Physical Exam Vital Signs: Temp Pulse Resp BP Pulse Ox 97.9 F 81 16 142/76 H 100 12/04/17 07:37 12/04/17 08:44 12/04/17 08:44 12/04/17 07:37 12/04/17 07:37 Intake & Output 12/03/17 12/04/17 12/05/17 06:59 06:59 06:59 Intake Total 1588 Output Total 1950 Balance -362 Weight 68.1 kg General appearance: PRESENT: no acute distress, well-developed, well-nourished Head exam: PRESENT: atraumatic, normocephalic Eye exam: PRESENT: conjunctiva pink, EOMI. ABSENT: scleral icterus Ear exam: PRESENT: normal external ear exam Mouth exam: PRESENT: moist, tongue midline Neck exam: ABSENT: carotid bruit, JVD, lymphadenopathy, thyromegaly Respiratory exam: PRESENT: other - diminished at bases bilateral. ABSENT: rales , rhonchi, wheezes Cardiovascular exam: PRESENT: RRR. ABSENT: diastolic murmur, rubs, systolic murmur Pulses: PRESENT: normal dorsalis pedis pul Vascular exam: PRESENT: normal capillary refill GI/Abdominal exam: PRESENT: normal bowel sounds, soft. ABSENT: distended, guarding, mass, organolmegaly, rebound, tenderness Rectal exam: PRESENT: deferred Extremities exam: PRESENT: other - Upper and lower ext contractures bilateral. Musculoskeletal exam: PRESENT: other - bilateral upper and lower ext contractures. Neurological exam: PRESENT: alert, awake, oriented to person, oriented to place , oriented to time, oriented to situation. ABSENT: motor sensory deficit Psychiatric exam: PRESENT: appropriate affect, normal mood. ABSENT: homicidal ideation, suicidal ideation Skin exam: PRESENT: other - pt with stage 2 sacral decubitis ulcer. Results Laboratory Results: 12/04/17 06:18 12/04/17 06:18 12/04/17 12/04/17 06:18 06:18 WBC 7.7 RBC 3.93 Hgb 11.4 L Hct 33.8 L MCV 86 MCH 29.0 MCHC 33.7 RDW 16.0 H Plt Count 169 Seg Neutrophils % 79.8 H Lymphocytes % 9.1 L Monocytes % 10.7 Eosinophils % 0.2 Basophils % 0.2 Absolute Neutrophils 6.1 Absolute Lymphocytes 0.7 Absolute Monocytes 0.8 Absolute Eosinophils 0.0 Absolute Basophils 0.0 Sodium 140.6 Potassium 3.8 Chloride 107 Carbon Dioxide 23 Anion Gap 11 BUN 14 Creatinine 0.81 Est GFR ( Amer) > 60 Est GFR (Non-Af Amer) > 60 Glucose 125 H Calcium 9.3 Magnesium 2.0 Total Bilirubin 0.4 AST 43 H ALT 28 Alkaline Phosphatase 89 Total Protein 7.1 Albumin 3.6 Impressions: Head CT 12/02/17 08:33 IMPRESSION: Finding compatible with a known history of demyelinating disease. Findings compatible with left tentorial meningioma EVIDENCE OF ACUTE STROKE: NO. Chest CT 12/02/17 13:13 IMPRESSION: Linear bands of increased density likely atelectasis or scarring. Component of pneumonia cannot be excluded. Chest X-Ray 12/03/17 06:00 IMPRESSION: 1. Improved aeration the lung bases bilaterally with likely discoid atelectasis in the right lung base. Assessment & Plan - Diagnosis (1) Fungemia Is this a current diagnosis for this admission?: Yes Plan: Repeat blood cultures are pending. Patient has one set of blood cultures demonstrating yeast. Patient is on Micafungin. (2) Multiple sclerosis exacerbation Is this a current diagnosis for this admission?: Yes Plan: Pt has completed Steroid regimen. (3) Aspiration pneumonia Qualifiers: Aspiration pneumonia type: unspecified Laterality: bilateral Lung location: unspecified part of lung Qualified Code(s): J69.0 - Pneumonitis due to inhalation of food and vomit Is this a current diagnosis for this admission?: Yes Plan: Place patient on Zosyn and Flutter Valve. Will check CXR tomorrow. (4) Quadriplegia and quadriparesis Is this a current diagnosis for this admission?: Yes Plan: Supportive care. (5) Dysphagia Is this a current diagnosis for this admission?: Yes Plan: Ruled Out: Patient passed speech evaluation will advance diet. (6) Stage II pressure ulcer of sacral region Is this a current diagnosis for this admission?: Yes Plan: We will consult surgery for wound care (7) DVT prophylaxis Is this a current diagnosis for this admission?: Yes Plan: SCDS - Time Time Spent with patient: 15-24 minutes
[2017-12-04] MEDS ORDERED: METHYLPREDNISOLONE SOD SUCC 1,000 MG in DEXTROSE 5%-WATER 100 ML IV SCH (18:00)
--- NOTE | 2017-12-04 19:28 | RADIOLOGY REPORT (SQ) ---
EXAM DESCRIPTION: MRI HEAD WITHOUT COMPLETED DATE/TIME: 12/04/2017 7:13 pm REASON FOR STUDY: MS Flare COMPARISON: 07/07/2016 TECHNIQUE: Multiplanar imaging includes non-contrasted T1, T2, FLAIR, and diffusion with ADC map seq uences. Images stored on PACS. LIMITATIONS: None. FINDINGS: ANATOMY: No anomalies. Normal vascular flow voids. Pituitary fossa normal. CSF SPACES: Normal in size and contour. No hemorrhage. CEREBRUM: Sulci and gyri normal in size and contour. Again noted is diffuse abnormal white matter si gnal on FLAIR imaging grossly stable from prior study compatible with history of multiple sclerosis. No evidence of hemorrhage, mass, or extraaxial fluid collection. Again noted is a 7 mm mass along t he left posterior clinoid seen on series 6, image 13 unchanged from prior study POSTERIOR FOSSA: Stable degree of white matter disease in FLAIR imaging compatible with multiple scle rosis. No definite new signal alteration. No hemorrhage. No edema, masses or mass effect. Internal auditory canals, cerebello-pontine angles, mastoids normal. DIFFUSION IMAGING: Negative for acute or sub-acute infarction. ORBITS: No masses. Globes normal. PARANASAL SINUSES: No fluid levels. Mucosa normal. OTHER: No other significant finding. IMPRESSION: RELATIVELY STABLE APPEARANCE OF EXTENSIVE ABNORMAL WHITE MATTER SIGNAL ON FLAIR IMAGING COMPATIBLE WITH HISTORY OF MULTIPLE SCLEROSIS. CANNOT ASSESS FOR ACTIVE DEMYELINATION GIVEN LACK OF IV CONTRAST. STABLE 7 MM MASS LEFT POSTERIOR CLINOID AGAIN PRESUMABLY REPRESENTING A BENIGN MENINGIOMA. NO ACUTE ISCHEMIA, HEMORRHAGE, OR NEW MASSES IDENTIFIED. EVIDENCE OF ACUTE STROKE: NO. TECHNICAL DOCUMENTATION: JOB ID: [id number] [employer]- All Rights Reserved Reading location - IP/workstation name: [email or web address]
[2017-12-04] MEDS: MICAFUNGIN SODIUM 100 MG in NORMAL SALINE 100 ML IV SCH (23:24)
[2017-12-05] MEDS: BACLOFEN 20 MG TABLET PO SCH ×3 (06:16→22:51)
[2017-12-05] MEDS: PIPERACILLIN SODIUM/TAZOBACTAM 3.375 GM in NORMAL SALINE 100 ML IV SCH ×3 (06:16→17:52)
[2017-12-05] MEDS: LANSOPRAZOLE 30 MG TAB.RAP.DR PO SCH (06:16)
[2017-12-05] MEDS: GABAPENTIN 300 MG CAPSULE PO SCH ×3 (06:16→22:51)
[2017-12-05] MEDS: CALCIUM CARBONATE 500 MG TABLET PO SCH (09:51)
[2017-12-05] MEDS: MULTIVITAMIN TABLET PO SCH (09:51)
[2017-12-05] MEDS: CHOLECALCIFEROL (D3) 1,000 UNIT TABLET PO SCH ×2 (09:51→17:51)
[2017-12-05] MEDS: CITALOPRAM HYDROBROMIDE 20 MG TABLET PO SCH (09:51)
[2017-12-05] MEDS: INDOMETHACIN 50 MG CAPSULE PO SCH ×2 (09:52→17:51)
--- NOTE | 2017-12-05 13:44 | RADIOLOGY REPORT (SQ) ---
EXAM DESCRIPTION: MRI HEAD COMBO COMPLETED DATE/TIME: 12/05/2017 1:23 pm REASON FOR STUDY: MS Flare COMPARISON: MRI brain 12/04/2017, 07/07/2016, 10/11/2015 TECHNIQUE: Multiplanar post contrast imaging of the brain was performed. CONTRAST TYPE AND DOSE: 15 mL Multihance. RENAL FUNCTION: GFR > 60. LIMITATIONS: None. FINDINGS: Along the left tentorium anterior edge, a 13 x 7 mm plaque-like meningioma is present on a xial image 94. This correlates with the findings described on 12/04/2017 MRI brain, this finding is s table compared to studies dating back to 2014. No abnormal brain parenchymal enhancement. Remainder of the study post contrast demonstrates white m atter lesions unchanged from 12/04/2017 IMPRESSION: Small plaque-like meningioma along the left anterior tentorial edge, unchanged from 2014 EVIDENCE OF ACUTE STROKE: NO. TECHNICAL DOCUMENTATION: JOB ID: [id number] [employer]- All Rights Reserved Reading location - IP/workstation name: [email or web address]
--- NOTE | 2017-12-05 14:15 | PDOC PROGRESS REPORT ---
Subjective Progress Note for:: 12/05/17 Subjective:: Pt states that she is feeling better. Reason For Visit: ASPIRATION PNEUMONIA,MS FLARE Physical Exam Vital Signs: Temp Pulse Resp BP Pulse Ox 98.0 F 76 18 152/78 H 100 12/05/17 12:34 12/05/17 12:34 12/05/17 12:34 12/05/17 12:34 12/05/17 12:34 Intake & Output 12/04/17 12/05/17 12/06/17 06:59 06:59 06:59 Intake Total 1588 2139 Output Total 1950 2150 Balance -362 -11 Weight 68.1 kg 65.3 kg General appearance: PRESENT: no acute distress, well-developed, well-nourished Head exam: PRESENT: atraumatic, normocephalic Eye exam: PRESENT: conjunctiva pink, EOMI. ABSENT: scleral icterus Ear exam: PRESENT: normal external ear exam Mouth exam: PRESENT: moist, tongue midline Neck exam: ABSENT: carotid bruit, JVD, lymphadenopathy, thyromegaly Respiratory exam: PRESENT: clear to auscultation subha. ABSENT: rales, rhonchi, wheezes Cardiovascular exam: PRESENT: RRR. ABSENT: diastolic murmur, rubs, systolic murmur Pulses: PRESENT: normal dorsalis pedis pul Vascular exam: PRESENT: normal capillary refill GI/Abdominal exam: PRESENT: normal bowel sounds, soft. ABSENT: distended, guarding, mass, organolmegaly, rebound, tenderness Rectal exam: PRESENT: deferred Extremities exam: PRESENT: full ROM. ABSENT: calf tenderness, clubbing, pedal edema Neurological exam: PRESENT: alert, awake, oriented to person, oriented to place , oriented to time, oriented to situation, CN II-XII grossly intact. ABSENT: motor sensory deficit Psychiatric exam: PRESENT: appropriate affect, normal mood. ABSENT: homicidal ideation, suicidal ideation Skin exam: PRESENT: dry, intact, warm. ABSENT: cyanosis, rash Results Laboratory Results: 12/04/17 06:18 12/04/17 06:18 12/02/17 21:01 Blood Blood Culture - Final Yeast, Not Olamide Albicans 12/02/17 19:17 Blood Blood Culture - Final Yeast, Not Olamide Albicans 12/02/17 19:17 Blood Yeast/Fungus Identification - Final Not Reportable 12/02/17 19:17 Blood Yeast/Fungus Identification - Final Not Reportable 12/02/17 19:17 Blood Yeast/Fungus Identification - Final Not Reportable 12/02/17 19:17 Blood Yeast/Fungus Identification - Final Not Reportable Impressions: Head CT 12/02/17 08:33 IMPRESSION: Finding compatible with a known history of demyelinating disease. Findings compatible with left tentorial meningioma EVIDENCE OF ACUTE STROKE: NO. Chest CT 12/02/17 13:13 IMPRESSION: Linear bands of increased density likely atelectasis or scarring. Component of pneumonia cannot be excluded. Chest X-Ray 12/03/17 06:00 IMPRESSION: 1. Improved aeration the lung bases bilaterally with likely discoid atelectasis in the right lung base. Head MRI 12/05/17 00:00 IMPRESSION: Small plaque-like meningioma along the left anterior tentorial edge , unchanged from 2015 EVIDENCE OF ACUTE STROKE: NO. Assessment & Plan - Diagnosis (1) Fungemia Is this a current diagnosis for this admission?: Yes Plan: Patient is on Micafungin. (2) Multiple sclerosis exacerbation Is this a current diagnosis for this admission?: Yes Plan: MRI with contrast demonstrates no new flares. Will complete treatment today. (3) Aspiration pneumonia Qualifiers: Aspiration pneumonia type: unspecified Laterality: bilateral Lung location: unspecified part of lung Qualified Code(s): J69.0 - Pneumonitis due to inhalation of food and vomit Is this a current diagnosis for this admission?: Yes Plan: Place patient on Zosyn and Flutter Valve. CXR pending. (4) Quadriplegia and quadriparesis Is this a current diagnosis for this admission?: Yes Plan: Supportive care. (5) Dysphagia Is this a current diagnosis for this admission?: Yes Plan: Ruled Out: Patient passed speech evaluation will advance diet. (6) Stage II pressure ulcer of sacral region Is this a current diagnosis for this admission?: Yes Plan: We will consult surgery for wound care (7) DVT prophylaxis Is this a current diagnosis for this admission?: Yes Plan: SCDS - Time Time Spent with patient: 15-24 minutes
[2017-12-05] MEDS: INSULIN LISPRO 100 UNIT/ML 3 ML VIAL SUBCUT PRN ×2 (14:35→18:58)
--- NOTE | 2017-12-05 16:12 | RADIOLOGY REPORT (SQ) ---
EXAM DESCRIPTION: CHEST SINGLE VIEW COMPLETED DATE/TIME: 12/05/2017 3:45 pm REASON FOR STUDY: Pneumonia COMPARISON: AP chest 12/03/2017, 12/02/2017, 10/21/2015 CT chest 12/02/2017 EXAM PARAMETERS: NUMBER OF VIEWS: One view. TECHNIQUE: Single frontal radiographic view of the chest acquired. RADIATION DOSE: NA LIMITATIONS: None. FINDINGS: LUNGS AND PLEURA: Mild bibasilar bandlike atelectasis unchanged from 12/02/2017 and 12/03/19 18. No fluffy alveolar infiltrates worrisome for edema or pneumonia. No pleural effusion. No pneumothorax. MEDIASTINUM AND HILAR STRUCTURES: No masses. Contour normal. HEART AND VASCULAR STRUCTURES: Mild cardiomegaly BONES: No acute findings. HARDWARE: None in the chest. OTHER: No other significant finding. IMPRESSION: Persistent bibasilar bandlike atelectasis TECHNICAL DOCUMENTATION: JOB ID: [id number] [employer]- All Rights Reserved Reading location - IP/workstation name: [email or web address]
[2017-12-05] MEDS: BUTALB/ACETAMINOPHEN/CAFFEINE 1 TAB EACH PO PRN (17:56)
[2017-12-05] MEDS: MICAFUNGIN SODIUM 100 MG in NORMAL SALINE 100 ML IV SCH (22:50)
[2017-12-06] MEDS: PIPERACILLIN SODIUM/TAZOBACTAM 3.375 GM in NORMAL SALINE 100 ML IV SCH ×3 (00:18→12:44)
[2017-12-06] MEDS: BACLOFEN 20 MG TABLET PO SCH ×3 (05:51→22:28)
[2017-12-06] MEDS: GABAPENTIN 300 MG CAPSULE PO SCH ×3 (05:52→22:28)
[2017-12-06] MEDS: LANSOPRAZOLE 30 MG TAB.RAP.DR PO SCH (05:53)
[2017-12-06 08:03] LABS: ALANINE AMINOTRANSFERASE 28 U/L (9-52); ALBUMIN 3.6 g/dL (3.5-5.0); ALKALINE PHOSPHATASE 84 U/L (38-126); ANION GAP 14 (5-19); ASPARTATE AMINO TRANSFERASE 21 U/L (14-36); BILIRUBIN,DIRECT 0.3 mg/dL (0.0-0.4); BILIRUBIN,TOTAL 0.3 mg/dL (0.2-1.3); BLOOD UREA NITROGEN 18 mg/dL (7-20); CALCIUM 9.8 mg/dL (8.4-10.2); CARBON DIOXIDE 24 mmol/L (22-30); CHLORIDE 102 mmol/L (98-107); GLUCOSE 122 mg/dL (75-110); POTASSIUM 3.8 mmol/L (3.6-5.0); SODIUM 139.9 mmol/L (137-145); TOTAL PROTEIN 6.9 g/dL (6.3-8.2)
[2017-12-06 08:06] LABS: HEMATOCRIT 32.6 % (36.0-47.0); HEMOGLOBIN 10.9 g/dL (12.0-15.5); MEAN CORPUSCULAR HEMOGLOBIN 28.8 pg (27.0-33.4); MEAN CORPUSCULAR HGB CONC 33.5 g/dL (32.0-36.0); MEAN CORPUSCULAR VOLUME 86 fl (80-97); PLATELET COUNT 204 10^3/uL (150-450); RED BLOOD COUNT 3.79 10^6/uL (3.72-5.28); RED CELL DISTRIBUTION WIDTH 16.5 % (11.5-14.0); WHITE BLOOD COUNT 9.4 10^3/uL (4.0-10.5)
[2017-12-06 08:53] LABS: ABSOLUTE LYMPHOCYTES# (MANUAL) 2.3 10^3/uL (0.5-4.7); ABSOLUTE MONOCYTES # (MANUAL) 0.8 10^3/uL (0.1-1.4); ABSOLUTE NEUTROPHILS# (MANUAL) 6.3 10^3/uL (1.7-8.2); ANISOCYTOSIS 1+; BAND NEUTROPHILS % (MANUAL) 1 % (3-5); BASOPHILS % (MANUAL) 0 % (0-2); EOSINOPHILS % (MANUAL) 0 % (0-6); LYMPHOCYTES % (MANUAL) 23 % (13-45); METAMYELOCYTES % (MANUAL) 1 % (0); MONOCYTES % (MANUAL) 9 % (3-13); OVALOCYTES SLIGHT; SEGMENTED NEUTROPHILS % (MAN) 62 % (42-78); TOTAL CELLS COUNTED 100; TOXIC GRANULATION SLIGHT
[2017-12-06 08:54] LABS: PLATELET COMMENT ADEQUATE; PLATELET GIANT PRESENT; PLATELET LARGE PRESENT; POIKILOCYTOSIS SLIGHT
[2017-12-06 08:55] LABS: MYELOCYTES % (MANUAL) 3 % (0)
[2017-12-06] MEDS: MULTIVITAMIN TABLET PO SCH (09:48)
[2017-12-06] MEDS: BUTALB/ACETAMINOPHEN/CAFFEINE 1 TAB EACH PO PRN ×2 (09:48→15:34)
[2017-12-06] MEDS: CITALOPRAM HYDROBROMIDE 20 MG TABLET PO SCH (09:48)
[2017-12-06] MEDS: CHOLECALCIFEROL (D3) 1,000 UNIT TABLET PO SCH ×2 (09:48→17:16)
[2017-12-06] MEDS: CALCIUM CARBONATE 500 MG TABLET PO SCH (09:48)
[2017-12-06] MEDS: INDOMETHACIN 50 MG CAPSULE PO SCH ×2 (09:49→17:16)
--- NOTE | 2017-12-06 13:40 | PDOC PROGRESS REPORT ---
Subjective Progress Note for:: 12/06/17 Subjective:: Pt states that she is feeling better. Pt states that her speech is good. Reason For Visit: ASPIRATION PNEUMONIA,MS FLARE Physical Exam Vital Signs: Temp Pulse Resp BP Pulse Ox 97.3 F 67 18 169/94 H 97 12/06/17 08:04 12/06/17 12:26 12/06/17 12:26 12/06/17 08:04 12/06/17 12:26 Intake & Output 12/05/17 12/06/17 12/07/17 06:59 06:59 06:59 Intake Total 2139 1578 Output Total 2150 2200 Balance -11 -622 Weight 65.3 kg 72.8 kg General appearance: PRESENT: no acute distress, well-nourished Head exam: PRESENT: atraumatic, normocephalic Eye exam: PRESENT: conjunctiva pink, EOMI Ear exam: PRESENT: normal external ear exam Mouth exam: PRESENT: moist, tongue midline Neck exam: ABSENT: carotid bruit, JVD, lymphadenopathy, thyromegaly Respiratory exam: PRESENT: clear to auscultation subha. ABSENT: rales, rhonchi, wheezes Cardiovascular exam: PRESENT: RRR. ABSENT: diastolic murmur, rubs, systolic murmur Pulses: PRESENT: normal dorsalis pedis pul GI/Abdominal exam: PRESENT: normal bowel sounds, soft. ABSENT: distended, guarding, mass, organolmegaly, rebound, tenderness Rectal exam: PRESENT: deferred Extremities exam: PRESENT: other - upper and lower ext contractures bilaterally Musculoskeletal exam: PRESENT: other - upper and lower ext contractures Neurological exam: PRESENT: alert, awake, oriented to person, oriented to place , oriented to time, oriented to situation. ABSENT: motor sensory deficit Psychiatric exam: PRESENT: appropriate affect, normal mood. ABSENT: homicidal ideation, suicidal ideation Skin exam: PRESENT: dry, intact, warm. ABSENT: cyanosis, rash Results Laboratory Results: 12/06/17 06:31 12/06/17 06:31 12/06/17 12/06/17 06:31 06:31 WBC 9.4 RBC 3.79 Hgb 10.9 L Hct 32.6 L MCV 86 MCH 28.8 MCHC 33.5 RDW 16.5 H Plt Count 204 Seg Neutrophils % Not Reportable Lymphocytes % Not Reportable Monocytes % Not Reportable Eosinophils % Not Reportable Basophils % Not Reportable Absolute Neutrophils Not Reportable Absolute Lymphocytes Not Reportable Absolute Monocytes Not Reportable Absolute Eosinophils Not Reportable Absolute Basophils Not Reportable Sodium 139.9 Potassium 3.8 Chloride 102 Carbon Dioxide 24 Anion Gap 14 BUN 18 Creatinine 0.86 Est GFR ( Amer) > 60 Est GFR (Non-Af Amer) > 60 Glucose 122 H Calcium 9.8 Total Bilirubin 0.3 AST 21 ALT 28 Alkaline Phosphatase 84 Total Protein 6.9 Albumin 3.6 Impressions: Head CT 12/02/17 08:33 IMPRESSION: Finding compatible with a known history of demyelinating disease. Findings compatible with left tentorial meningioma EVIDENCE OF ACUTE STROKE: NO. Chest CT 12/02/17 13:13 IMPRESSION: Linear bands of increased density likely atelectasis or scarring. Component of pneumonia cannot be excluded. Chest X-Ray 12/05/17 00:00 IMPRESSION: Persistent bibasilar bandlike atelectasis Head MRI 12/05/17 00:00 IMPRESSION: Small plaque-like meningioma along the left anterior tentorial edge , unchanged from 2015 EVIDENCE OF ACUTE STROKE: NO. Assessment & Plan - Diagnosis (1) HTN (hypertension) Qualifiers: Hypertension type: essential hypertension Qualified Code(s): I10 - Essential (primary) hypertension Is this a current diagnosis for this admission?: Yes Plan: Will restart patient's Norvasc and metoprolol. (2) Fungemia Is this a current diagnosis for this admission?: Yes Plan: Patient is on Micafungin. (3) Multiple sclerosis exacerbation Is this a current diagnosis for this admission?: Yes Plan: MRI with contrast demonstrates no new flares. (4) Aspiration pneumonia Qualifiers: Aspiration pneumonia type: unspecified Laterality: bilateral Lung location: unspecified part of lung Qualified Code(s): J69.0 - Pneumonitis due to inhalation of food and vomit Is this a current diagnosis for this admission?: Yes Plan: Ruled out. Will discontinue Zosyn. (5) Quadriplegia and quadriparesis Is this a current diagnosis for this admission?: Yes Plan: Supportive care. (6) Dysphagia Is this a current diagnosis for this admission?: Yes Plan: Ruled Out: Patient passed speech evaluation will advance diet. (7) Stage II pressure ulcer of sacral region Is this a current diagnosis for this admission?: Yes Plan: We will consult surgery for wound care (8) DVT prophylaxis Is this a current diagnosis for this admission?: Yes Plan: SCDS - Time Time Spent with patient: 15-24 minutes
[2017-12-06] MEDS: INSULIN LISPRO 100 UNIT/ML 3 ML VIAL SUBCUT PRN (14:17)
[2017-12-06] MEDS ORDERED: SUMATRIPTAN SUCCINATE 50 MG TABLET PO PRN (16:30)
[2017-12-06] MEDS: HYDRALAZINE HCL INJ/PF 20 MG/1 ML SDV IV PRN (18:35)
[2017-12-06] MEDS: AMLODIPINE BESYLATE 10 MG TABLET PO SCH (22:28)
[2017-12-06] MEDS: MICAFUNGIN SODIUM 100 MG in NORMAL SALINE 100 ML IV SCH (22:28)
[2017-12-06] MEDS: METOPROLOL TARTRATE 25 MG TABLET PO SCH (22:28)
[2017-12-07] MEDS: BACLOFEN 20 MG TABLET PO SCH ×2 (05:12→13:21)
[2017-12-07] MEDS: GABAPENTIN 300 MG CAPSULE PO SCH ×2 (05:12→13:21)
[2017-12-07] MEDS: LANSOPRAZOLE 30 MG TAB.RAP.DR PO SCH (05:12)
[2017-12-07 06:16] LABS: ABSOLUTE BASOPHILS # (AUTO) 0.1 10^3/uL (0.0-0.2); ABSOLUTE EOSINOPHILS # (AUTO) 0.1 10^3/uL (0.0-0.6); ABSOLUTE LYMPHOCYTES (AUTO) 2.3 10^3/uL (0.5-4.7); ABSOLUTE MONOCYTES (AUTO) 0.6 10^3/uL (0.1-1.4); ABSOLUTE NEUT (AUTO) 7.2 10^3/uL (1.7-8.2); BASOPHILS % (AUTO) 0.6 % (0-2); EOSINOPHILS % (AUTO) 0.7 % (0-6); HEMOGLOBIN 11.3 g/dL (12.0-15.5); LYMPHOCYTES % (AUTO) 22.7 % (13-45); MEAN CORPUSCULAR HEMOGLOBIN 29.2 pg (27.0-33.4); MEAN CORPUSCULAR HGB CONC 34.1 g/dL (32.0-36.0); MEAN CORPUSCULAR VOLUME 86 fl (80-97); MONOCYTES % (AUTO) 5.8 % (3-13); PLATELET COUNT 207 10^3/uL (150-450); RED BLOOD COUNT 3.86 10^6/uL (3.72-5.28); RED CELL DISTRIBUTION WIDTH 16.6 % (11.5-14.0); SEGMENTED NEUTROPHILS % (AUTO) 70.2 % (42-78); TOTAL CELLS COUNTED % (AUTO) 100 %; WHITE BLOOD COUNT 10.2 10^3/uL (4.0-10.5)
[2017-12-07 06:35] LABS: ALANINE AMINOTRANSFERASE 44 U/L (9-52); ALBUMIN 3.6 g/dL (3.5-5.0); ALKALINE PHOSPHATASE 88 U/L (38-126); ANION GAP 13 (5-19); ASPARTATE AMINO TRANSFERASE 35 U/L (14-36); BILIRUBIN,DIRECT 0.1 mg/dL (0.0-0.4); BILIRUBIN,TOTAL 0.2 mg/dL (0.2-1.3); BLOOD UREA NITROGEN 13 mg/dL (7-20); CALCIUM 9.3 mg/dL (8.4-10.2); CARBON DIOXIDE 24 mmol/L (22-30); CHLORIDE 106 mmol/L (98-107); GLUCOSE 87 mg/dL (75-110); POTASSIUM 3.5 mmol/L (3.6-5.0); SODIUM 143.1 mmol/L (137-145); TOTAL PROTEIN 5.9 g/dL (6.3-8.2)
[2017-12-07] MEDS: CHOLECALCIFEROL (D3) 1,000 UNIT TABLET PO SCH ×2 (09:32→17:26)
[2017-12-07] MEDS: METOPROLOL TARTRATE 25 MG TABLET PO SCH (09:32)
[2017-12-07] MEDS: MULTIVITAMIN TABLET PO SCH (09:32)
[2017-12-07] MEDS: CALCIUM CARBONATE 500 MG TABLET PO SCH (09:32)
[2017-12-07] MEDS: CITALOPRAM HYDROBROMIDE 20 MG TABLET PO SCH (09:32)
[2017-12-07] MEDS: AMLODIPINE BESYLATE 10 MG TABLET PO SCH (09:33)
[2017-12-07] MEDS: INDOMETHACIN 50 MG CAPSULE PO SCH ×2 (09:33→17:25)
[2017-12-07] MEDS: HYDRALAZINE HCL INJ/PF 20 MG/1 ML SDV IV PRN (09:33)
[2017-12-07 13:11] VITALS: BP 162/89
[2017-12-07] MEDS ORDERED: ACETAMINOPHEN 650 MG SUPP.RECT PR PRN (14:17)
--- NOTE | 2017-12-07 14:50 | PDOC PROGRESS REPORT ---
Subjective Progress Note for:: 12/07/17 Subjective:: is at bedside. He is concerned that patient is not doing well. Explained to that patient has a fungus in her bloodstream and currently on antifungal medication. Patient states that she feels weak today. Patient was noted to have a fever of 101. Reason For Visit: ASPIRATION PNEUMONIA,MS FLARE Physical Exam Vital Signs: Temp Pulse Resp BP Pulse Ox 101.0 F H 88 14 162/89 H 100 12/07/17 12:32 12/07/17 12:32 12/07/17 12:32 12/07/17 12:35 12/07/17 12:32 Intake & Output 12/06/17 12/07/17 12/08/17 06:59 06:59 06:59 Intake Total 1578 1682 Output Total 2200 2925 Balance -622 -1243 Weight 72.8 kg 73 kg General appearance: PRESENT: mild distress, well-developed, well-nourished Head exam: PRESENT: atraumatic, normocephalic Eye exam: PRESENT: conjunctiva pink, EOMI. ABSENT: scleral icterus Ear exam: PRESENT: normal external ear exam Mouth exam: PRESENT: moist, tongue midline Neck exam: ABSENT: carotid bruit, JVD, lymphadenopathy, thyromegaly Respiratory exam: PRESENT: other - Good breath sounds heard anteriorly however diminished at bases bilaterally Cardiovascular exam: PRESENT: RRR. ABSENT: diastolic murmur, rubs, systolic murmur Pulses: PRESENT: normal dorsalis pedis pul Vascular exam: PRESENT: normal capillary refill GI/Abdominal exam: PRESENT: normal bowel sounds, soft Rectal exam: PRESENT: deferred Extremities exam: PRESENT: other - Bilateral upper and lower extremity contractures Musculoskeletal exam: PRESENT: other - Bilateral upper and lower extremity contractures Neurological exam: PRESENT: alert, oriented to person, oriented to place Psychiatric exam: PRESENT: other - Sleeping but able to awake Focused psych exam: PRESENT: other - Affect appropriate Skin exam: PRESENT: other - Warm and dry patient does have a sacral wound Results Laboratory Results: 12/07/17 06:00 12/07/17 06:00 12/07/17 12/07/17 06:00 06:00 WBC 10.2 RBC 3.86 Hgb 11.3 L Hct 33.0 L MCV 86 MCH 29.2 MCHC 34.1 RDW 16.6 H Plt Count 207 Seg Neutrophils % 70.2 Lymphocytes % 22.7 Monocytes % 5.8 Eosinophils % 0.7 Basophils % 0.6 Absolute Neutrophils 7.2 Absolute Lymphocytes 2.3 Absolute Monocytes 0.6 Absolute Eosinophils 0.1 Absolute Basophils 0.1 Sodium 143.1 Potassium 3.5 L Chloride 106 Carbon Dioxide 24 Anion Gap 13 BUN 13 Creatinine 0.72 Est GFR ( Amer) > 60 Est GFR (Non-Af Amer) > 60 Glucose 87 Calcium 9.3 Total Bilirubin 0.2 AST 35 ALT 44 Alkaline Phosphatase 88 Total Protein 5.9 L Albumin 3.6 12/03/17 20:35 Blood Blood Culture - Final Yeast, Not Olamide Albicans 12/03/17 19:05 Blood Blood Culture - Final Yeast, Not Olamide Albicans 12/05/17 15:22 Blood Blood Culture - Final Yeast, Not Olamide Albicans Impressions: Head CT 12/02/17 08:33 IMPRESSION: Finding compatible with a known history of demyelinating disease. Findings compatible with left tentorial meningioma EVIDENCE OF ACUTE STROKE: NO. Chest CT 12/02/17 13:13 IMPRESSION: Linear bands of increased density likely atelectasis or scarring. Component of pneumonia cannot be excluded. Chest X-Ray 12/05/17 00:00 IMPRESSION: Persistent bibasilar bandlike atelectasis Head MRI 12/05/17 00:00 IMPRESSION: Small plaque-like meningioma along the left anterior tentorial edge , unchanged from 2015 EVIDENCE OF ACUTE STROKE: NO. Assessment & Plan - Diagnosis (1) Fungemia Is this a current diagnosis for this admission?: Yes Plan: Patient is on Micafungin. (2) HTN (hypertension) Qualifiers: Hypertension type: essential hypertension Qualified Code(s): I10 - Essential (primary) hypertension Is this a current diagnosis for this admission?: Yes Plan: We will continue Norvasc and metoprolol. Will write for scheduled hydralazine. (3) Multiple sclerosis exacerbation Is this a current diagnosis for this admission?: Yes Plan: MRI with contrast demonstrates no new flares. Patient has received 3 doses of IV steroids. (4) Aspiration pneumonia Qualifiers: Aspiration pneumonia type: unspecified Laterality: bilateral Lung location: unspecified part of lung Qualified Code(s): J69.0 - Pneumonitis due to inhalation of food and vomit Is this a current diagnosis for this admission?: Yes Plan: Ruled out. Will discontinue Zosyn. (5) Quadriplegia and quadriparesis Is this a current diagnosis for this admission?: Yes Plan: Supportive care. (6) Dysphagia Is this a current diagnosis for this admission?: Yes Plan: Ruled Out: Patient passed speech evaluation will advance diet. (7) Stage II pressure ulcer of sacral region Is this a current diagnosis for this admission?: Yes Plan: Continue current wound care with dressing changes and minimizing pressure to area with frequent turns. (8) DVT prophylaxis Is this a current diagnosis for this admission?: Yes Plan: SCDS - Time Time Spent with patient: 25-34 minutes - Contacted [facility] for potential transfer. Awaiting to hear back from hospitalist.
[2017-12-07] MEDS ORDERED: ONDANSETRON 4 MG TAB.RAPDIS PO PRN (15:30)
--- NOTE | 2017-12-07 15:36 | PDOC DISCHARGE SUMMARY ---
General - Admit/Disc Date/PCP Admission Date/Primary Care Provider: 12/02/17 13:37 Discharge Date: 12/07/17 - Discharge Diagnosis (1) Fungemia Is this a current diagnosis for this admission?: Yes Summary: Yeast: Patient on micafungin. Patient's cultures have been sent out for further identification and sensitivities. Specimen has been set up to evaluate effectiveness of micafungin (2) HTN (hypertension) Is this a current diagnosis for this admission?: Yes Summary: Patient continued on home medications and hydralazine added. (3) Multiple sclerosis exacerbation Is this a current diagnosis for this admission?: Yes Summary: Patient had MRI with contrast of brain that did not demonstrate evidence of new areas of demyelination. Patient did receive methylprednisone thousand milligrams daily for 3 days. (4) Aspiration pneumonia Is this a current diagnosis for this admission?: Yes Summary: Patient was initially placed on Zosyn for presumed aspiration pneumonia. CT of chest did not demonstrate significant findings to support pneumonia therefore antibiotics were discontinued. Due to patient's fungemia felt that this was most likely the reason for patient's clinical presentation. (5) Quadriplegia and quadriparesis Is this a current diagnosis for this admission?: Yes Summary: Supportive care (6) Dysphagia Is this a current diagnosis for this admission?: Yes Summary: Patient initially passed her swallow study. Patient may need to be reevaluated again. (7) Stage II pressure ulcer of sacral region Is this a current diagnosis for this admission?: Yes Summary: Patient has been receiving wound care with frequent turning to alleviate pressure - Additional Information Resuscitation Status: Full Code Home Medications: Amlodipine Besylate [Norvasc 10 mg Tablet] 5 mg PO Q12 12/03/17 Aspirin [Ecotrin 81 mg EC Tablet] 81 mg PO DAILY 12/03/17 Baclofen [Baclofen 20 mg Tablet] 20 mg PO Q8 12/03/17 Benzonatate [Tessalon Perles 100 mg Capsule] 100 mg PO Q12HP PRN 12/03/17 Butalb/Acetaminophen/Caffeine [Yjwxlh-Jrhemdql-Aslj 50-325-40] 1 tab PO Q6HP PRN 12/03/17 Calcium Carbonate [Calcium] 500 mg PO DAILY 12/03/17 Cholecalciferol (Vitamin D3) [Vitamin D3] 1,000 unit PO BID 12/03/17 Citalopram Hydrobromide [Celexa 40 mg Tablet] 40 mg PO DAILY 12/03/17 Gabapentin [Neurontin] 600 mg PO Q8 12/03/17 Ginkgo Biloba 120 mg PO DAILY 12/03/17 Indomethacin [Indocin 25 mg Capsule] 50 mg PO BIDBS 12/03/17 Meclizine HCl [Antivert 25 mg Tablet] 25 mg PO Q8HP PRN 12/03/17 Metoprolol Tartrate [Lopressor 25 mg Tablet] 12.5 mg PO Q12 12/03/17 Multivitamin [Tab-A-Miranda (Multiple Vitamin) Tablet] 1 tab PO DAILY 12/03/17 Omeprazole 40 mg PO DAILY 12/03/17 Sumatriptan Succinate [Imitrex 100 mg Tablet] 50 mg PO PRN PRN 12/03/17 History of Present Illness Patient complains of: Unable to speak this morning. History of Present Illness: COOKIE ARCHIBALD is a 62 year old female presented to the emergency room after states that patient was not able to speak this morning. reports that patient is able to speak however nursing states that they have noted that patient is running a low-grade fever. ER doctor called stating that patient's chest x-ray was unrevealing. ER doctor also reported that patient appeared to be dehydrated and was given IV fluids. CT was requested to evaluate for aspiration pneumonia. reports that patient does lay flat at night. reports that her physician is the [facility]. Patient's also reports that patient does see a private neurologist by the name of Dr. Carrion. reports that patient was doing well until today. also reports that patient has been complaining of a headache for about 2-3 days. As per reports that he has been given medication that the [facility] has prescribed for her for headaches. also reports that patient has a left sided butt wound. Hospital Course Hospital Course: Patient is a 59-year-old female that was admitted on 02 December due to inability to speak. Nurse had reported that patient had a low-grade temp in that chest x-ray was unrevealing. ER doctor gave patient IV fluids and administered steroids for suspected MS flare. Patient received the prednisone thousand milligrams IV daily for 3 days. Patient's MRI with contrast demonstrated no evidence of acute flare. Therefore steroids were discontinued. Patient on day of discharge developed a fever of 101 and was concerned about patient's change in ability to speak. felt that patient was having an MS flare. Due to not having ID or neurology to help assist in this medically complicated case felt that it was in the best interest of patient care to have patient transferred to tertiary center where she can see a specialist that we do not have at our facility. Dr. Marie at [facility] has gladly accepted patient. Physical Exam Vital Signs: Temp Pulse Resp BP Pulse Ox 101.0 F H 88 14 162/89 H 100 12/07/17 12:32 12/07/17 12:32 12/07/17 12:32 12/07/17 12:35 12/07/17 12:32 Intake & Output 12/06/17 12/07/17 12/08/17 06:59 06:59 06:59 Intake Total 1578 1682 Output Total 2200 2925 Balance -622 -1243 Weight 72.8 kg 73 kg General appearance: PRESENT: well-developed, well-nourished Head exam: PRESENT: atraumatic, normocephalic Eye exam: PRESENT: conjunctiva pink, EOMI Ear exam: PRESENT: normal external ear exam Mouth exam: PRESENT: moist, tongue midline Neck exam: ABSENT: carotid bruit, JVD, lymphadenopathy, thyromegaly Respiratory exam: PRESENT: chest wall tenderness, other - Diminished at bases bilaterally Cardiovascular exam: PRESENT: RRR. ABSENT: diastolic murmur, rubs, systolic murmur Pulses: PRESENT: normal dorsalis pedis pul GI/Abdominal exam: PRESENT: normal bowel sounds, soft. ABSENT: distended, guarding, mass, organolmegaly, rebound, tenderness Rectal exam: PRESENT: deferred Extremities exam: PRESENT: other - Upper and lower extremity contractures Musculoskeletal exam: PRESENT: other - Upper and lower extremity contractures Neurological exam: PRESENT: alert, oriented to person, oriented to place, oriented to time Psychiatric exam: PRESENT: other - Affect appropriate Skin exam: PRESENT: other - Pt has a stage II sacral pressure wound Results Laboratory Results: 12/07/17 06:00 12/07/17 06:00 12/07/17 12/07/17 06:00 06:00 WBC 10.2 RBC 3.86 Hgb 11.3 L Hct 33.0 L MCV 86 MCH 29.2 MCHC 34.1 RDW 16.6 H Plt Count 207 Seg Neutrophils % 70.2 Lymphocytes % 22.7 Monocytes % 5.8 Eosinophils % 0.7 Basophils % 0.6 Absolute Neutrophils 7.2 Absolute Lymphocytes 2.3 Absolute Monocytes 0.6 Absolute Eosinophils 0.1 Absolute Basophils 0.1 Sodium 143.1 Potassium 3.5 L Chloride 106 Carbon Dioxide 24 Anion Gap 13 BUN 13 Creatinine 0.72 Est GFR ( Amer) > 60 Est GFR (Non-Af Amer) > 60 Glucose 87 Calcium 9.3 Total Bilirubin 0.2 AST 35 ALT 44 Alkaline Phosphatase 88 Total Protein 5.9 L Albumin 3.6 12/03/17 20:35 Blood Blood Culture - Final Yeast, Not Olamide Albicans 12/03/17 19:05 Blood Blood Culture - Final Yeast, Not Olamide Albicans 12/05/17 15:22 Blood Blood Culture - Final Yeast, Not Olamide Albicans Impressions: Head CT 12/02/17 08:33 IMPRESSION: Finding compatible with a known history of demyelinating disease. Findings compatible with left tentorial meningioma EVIDENCE OF ACUTE STROKE: NO. Chest CT 12/02/17 13:13 IMPRESSION: Linear bands of increased density likely atelectasis or scarring. Component of pneumonia cannot be excluded. Chest X-Ray 12/05/17 00:00 IMPRESSION: Persistent bibasilar bandlike atelectasis Head MRI 12/05/17 00:00 IMPRESSION: Small plaque-like meningioma along the left anterior tentorial edge , unchanged from 2015 EVIDENCE OF ACUTE STROKE: NO. Qualifiers - * PATEINT BEING DISCHARGED WITH ANY OF THE FOLLOWING DIAGNOSIS?: No Plan Time Spent: Greater than 30 Minutes - Appreciate Dr. Marie's assistance with patient's care. Patient will be transferred to [facility]
[2017-12-07] MEDS ORDERED: METOPROLOL TARTRATE PF/INJ 5 MG/5 ML SDV IV ONE (16:00)
[2017-12-07] MEDS: POTASSI CL 20 MEQ/50 ML RIDER 20 MEQ/50 ML RTUPB IV SCH ×2 (17:26→19:21)
[2017-12-07] MEDS ORDERED: NORMAL SALINE 1000 ML 1,000 ML IV PRN (17:59)
[2017-12-07 18:12] LABS: CREATINE KINASE MB 0.37 ng/mL (<4.55); TROPONIN I 0.032 ng/mL
--- NOTE | 2017-12-07 19:17 | EKG REPORT ---
SEVERITY:- ABNORMAL ECG - SINUS RHYTHM BORDERLINE INFERIOR Q WAVES REPOL ABNRM SUGGESTS ISCHEMIA, DIFFUSE LEADS : Confirmed by: Salomon Clark MD 07-Dec-2017 19:16:29
[2017-12-07] MEDS ORDERED: HYDRALAZINE HCL 25 MG TABLET PO SCH (22:00)
[2017-12-07] MEDS ORDERED: AMLODIPINE BESYLATE 5 MG TABLET PO SCH (22:00)
[2017-12-08 09:44] LABS: PATH REVIEW PATHOLOGIST REVIEWED
== END 2017-12-07 20:40 | disposition short-term general hospital (02) | DRG 177 ==
LOC: ER 07:43 → EH 13:37 → 3S 12-03 14:16
PROVIDERS: ADMIT Emergency Medicine; ATTEND Emergency Medicine
PROC: 3E0F73Z Introduction of Anti-inflammatory into Respiratory Tract, Via Natural or Artificial Opening (ICD-10-PCS; principal; 2017-12-03)
DX: J69.0 Pneumonitis due to inhalation of food and vomit (principal); G82.50 Quadriplegia, unspecified; B49 Unspecified mycosis; G35 Multiple sclerosis; I10 Essential (primary) hypertension; R13.10 Dysphagia, unspecified; D32.9 Benign neoplasm of meninges, unspecified; L89.152 Pressure ulcer of sacral region, stage 2; D64.9 Anemia, unspecified; Z79.899 Other long term (current) drug therapy; Z90.710 Acquired absence of both cervix and uterus
CPT/HCPCS: 36415; 51702; 70450; 70551; 70553; 71045; 71250; 80053; 81001; 82550; 82553; 82962; 83036; 83735; 84484; 85025; 87040; 87077; 87086; 87186; 93005; 93010; 94667; 94668; 96374; 96375; 99285; A9577; G8996-GN; G8997-GN; G8998-GN; J0360; J1815; J1885; J2248; J2543; J2930; J3480; J3490; J7120

== ENCOUNTER 2017-12-13 22:19 | Inpatient (IN) | payer OTHER, MEDICARE ==
[2017-12-13] MEDS ORDERED: NORMAL SALINE 1000 ML 1,000 ML IV ONE ×2 (22:27→23:46)
[2017-12-13] MEDS ORDERED: PIPERACILLIN/TAZOBACTAM 3.375 GM VIAL IV ONE (22:28)
--- NOTE | 2017-12-13 22:30 | ER Document Report ---
ED General - General Chief Complaint: S/S of Possible Stroke Stated Complaint: STROKE LIKE SYMPTOMS Time Seen by Provider: 12/13/17 22:25 Cannot obtain history due to: Unstable vital signs Notes: Patient is a 62 year old female with a past medical history of quadriplegia secondary to MS at baseline who presents with acute onset of left-sided facial droop as well as mild expressive aphasia. EMS was contacted and transported to the emergency department. Patient was noted to be febrile to 103.5F. At time of arrival history is somewhat limited secondary to the acuity of the patient's presentation. Patient is slow to answer questions but does state that she feels "normal" and denies any feelings of difficulty speaking. Review of charts from prior encounters do note the patient has a history of speech impairment in the setting of MS flares. Patient reports that she was recently hospitalized at [facility] and was just discharged 2 days ago. She is currently taking fluconazole for history of fungemia. She is uncertain of if anything improves or worsens her symptoms. She denies any localizing pain. She does state that she feels somewhat short of breath and has been coughing. TRAVEL OUTSIDE OF THE [place] IN LAST 30 DAYS: No - Related Data Allergies/Adverse Reactions: No Known Allergies Allergy (Verified 12/02/17 07:45) Past Medical History - General Information source: Patient, Relative - Social History Smoking Status: Never Smoker Frequency of alcohol use: None Drug Abuse: None Lives with: Spouse/Significant other Family History: Reviewed & Not Pertinent - Past Medical History Cardiac Medical History: Reports: Hx Hypertension Pulmonary Medical History: Reports: Hx Pneumonia - aspiration Renal/ Medical History: Denies: Hx Peritoneal Dialysis Musculoskeltal Medical History: Reports Hx Multiple Sclerosis, Reports Hx Musculoskeletal Trauma Psychiatric Medical History: Denies: Hx Depression Past Surgical History: Reports: Hx Abdominal Surgery - SBO, Hx Hysterectomy, Hx Orthopedic Surgery - right elbow - Immunizations Hx Diphtheria, Pertussis, Tetanus Vaccination: Yes Hx Pneumococcal Vaccination: 04/10/14 Review of Systems - Review of Systems Notes: Constitutional: Positive for fever. HENT: Negative for sore throat. Eyes: Negative for visual changes. Cardiovascular: Negative for chest pain. Respiratory: Positive for shortness of breath. Gastrointestinal: Negative for abdominal pain, vomiting or diarrhea. Genitourinary: Negative for dysuria. Musculoskeletal: Negative for back pain. Skin: Negative for rash. Neurological: Negative for headaches, positive for mild expressive aphasia and left-sided facial 10 point ROS negative except as marked above and in HPI. Physical Exam - Vital signs Vitals: BP 116/56 L 12/13/17 22:20 Interpretation: Tachycardic, Hypoxic, Febrile Notes: PHYSICAL EXAMINATION: GENERAL: Chronically ill in appearance, appears uncomfortable and somewhat lethargic HEAD: Atraumatic, normocephalic. EYES: Pupils equal round and reactive to light, extraocular movements intact, sclera anicteric, conjunctiva are normal. ENT: nares patent, oropharynx clear without exudates. Dry mucous membranes. NECK: supple without lymphadenopathy LUNGS: Coarse breath sounds throughout. Moderate tachypnea. No respiratory distress. HEART: Regular tachycardia m without murmurs ABDOMEN: Soft, nontender, normoactive bowel sounds. No guarding, no rebound. No masses appreciated. EXTREMITIES: Contracted in all 4 extremities. Trace edema in the bilateral lower extremities that is equal and symmetric NEUROLOGICAL: Quadriplegia baseline. Patient has a mild effacement of the left nasolabial fold and mild left-sided facial droop. Patient has a very mild expressive aphasia taking approximately 3-4 seconds to state her name, name a pen and a piece of paper. However patient is able to clearly state all desired expressions. PSYCH: Alert but somewhat lethargic. Oriented to person, place and year. SKIN: Warm, Dry, poor skin turgor Course - Re-evaluation Re-evalutation: 12/13/17 22:28 Patient presents with signs and symptoms worrisome for a possible acute stroke. Last 1 hour she has had onset of mild dysarthria with delayed speech as well as a left-sided facial droop. Review of prior medical records does note that she has known history of having slurred speech in the context of MS flares but there is no documented history of prior facial drooping episodes. Patient also arrives acutely septic with tachycardia, hypoxemia, and a fever to 103.1F. She is currently being treated for yeast infection with fluconazole but is not on any additional antibiotics. She was recently seen and hospitalized at the end of November for an aspiration pneumonia. I am concerned about the possibility of recurrent aspiration pneumonia given her hypoxemia, tachycardia and fever. Patient is quadriplegic at baseline so the remainder of her neurologic exam is unable to determine any differences relative to baseline. Although patient does arrive within 1 hour of onset of her symptoms, I am concerned that TPA may not be beneficial in this context as patient is also acutely septic and has a history of recurrent slurred speech in the past with MS flares. Will obtain labs, cultures, venous blood gases, lactate, chest x-ray , as well as a CT of the head, CTA of the head, and CTA of the neck. 12/13/17 22:37 I have updated the patient and her in the current clinical situation. The full risks and benefits conversation has been had with the patient and her at the bedside and they both adamantly against TPA at this point. The primary concern is the possibility of TPA causing acute intracranial bleed, as well as the patient's current septic picture which could be worsened by the use of TPA. There is also concerned that this is similar to her prior presentations of MS flares and that we could be mistreating with the use of TPA. I will await CT imaging including CTA of the head and neck. 12/13/17 23:44 Patient's lactate is returned to concerning the elevated level at 4.1. Troponin is an indeterminate range. Chest x-ray seems to show a left upper lobe infiltrate consistent with patient's hypoxemia, fever and cough. She has been started on coverage for aspiration pneumonia as well as hospital-acquired pneumonia with both Zosyn and vancomycin. 12/14/17 0020 I have discussed this case with Dr. Deniz Bradshaw and he has accepted the patient for hospitalization. I have updated the family on the care plan and they continue to be in agreement. Patient is receiving her third liter of IV fluids. She has received all antibiotics. She is also receiving fluconazole due to history of fungemia. - Vital Signs Vital signs: Temp Pulse Resp BP Pulse Ox 102.9 F H 1 L 14 1/1 L 91 L 12/13/17 22:33 12/14/17 03:00 12/14/17 03:01 12/14/17 03:00 12/14/17 03:01 - Laboratory Result Diagrams: 12/13/17 22:24 12/13/17 22:24 Laboratory results interpreted by me: 12/13/17 12/13/17 12/13/17 22:24 22:24 22:24 Hgb 11.5 L Hct 34.7 L RDW 17.2 H Seg Neutrophils % 90.9 H Lymphocytes % 7.8 L Monocytes % 0.5 L Absolute Monocytes 0.0 L APTT VBG pH VBG pCO2 Carbon Dioxide 18 L Lactic Acid 4.1 H Urine Blood Ur Leukocyte Esterase 12/13/17 12/13/17 12/13/17 22:24 22:24 23:34 Hgb Hct RDW Seg Neutrophils % Lymphocytes % Monocytes % Absolute Monocytes APTT 22.1 L VBG pH 7.43 H VBG pCO2 32.1 L Carbon Dioxide Lactic Acid Urine Blood SMALL H Ur Leukocyte Esterase LARGE H - Diagnostic Test Radiology reviewed: Image reviewed, Reports reviewed Radiology results interpreted by me: 12/14/17 03:57 Chest x-ray: Left upper lobe infiltrate CT head: No acute intracranial bleed or mass - EKG Interpretation by Me Additional EKG results interpreted by me: 12/14/17 03:57 Sinus tachycardia. Rate 107. No ST elevations or depressions. QTC is 454. Critical Care Note - Critical Care Note Total time excluding time spent on procedures (mins): 40 Comments: Critical care time spent obtaining history from patient or surrogate, discussions with consultants, development of treatment plan with patient or surrogate, evaluation of patient's response to treatment, examination of patient , ordering and performing treatments and interventions, ordering and review of laboratory studies, re-evaluation of patient's condition, ordering and review of radiographic studies and review of old charts Discharge - Discharge Clinical Impression: Severe sepsis, Quadriplegia and quadriparesis, Expressive aphasia, Facial droop Acute respiratory failure Qualifiers: Respiratory failure complication: unspecified whether with hypoxia or hypercapnia Qualified Code(s): J96.00 - Acute respiratory failure, unspecified whether with hypoxia or hypercapnia Aspiration pneumonia Qualifiers: Aspiration pneumonia type: unspecified Laterality: bilateral Lung location: unspecified part of lung Qualified Code(s): J69.0 - Pneumonitis due to inhalation of food and vomit Condition: Critical Disposition: ADMITTED INPATIENT [facility] Unit Admitted: [facility]
[2017-12-13 22:47] LABS: VENOUS BLOOD BASE EXCESS -2.8 mmol/L; VENOUS BLOOD HCO3 20.8 mmol/L (20-32); VENOUS BLOOD PCO2 32.1 mmHg (35-63); VENOUS BLOOD PH 7.43 (7.30-7.42)
[2017-12-13 22:48] LABS: ABSOLUTE LYMPHOCYTES (AUTO) 0.5 10^3/uL (0.5-4.7); ABSOLUTE NEUT (AUTO) 5.4 10^3/uL (1.7-8.2); BASOPHILS % (AUTO) 0.3 % (0-2); EOSINOPHILS % (AUTO) 0.5 % (0-6); HEMATOCRIT 34.7 % (36.0-47.0); HEMOGLOBIN 11.5 g/dL (12.0-15.5); LYMPHOCYTES % (AUTO) 7.8 % (13-45); MEAN CORPUSCULAR HEMOGLOBIN 28.8 pg (27.0-33.4); MEAN CORPUSCULAR HGB CONC 33.2 g/dL (32.0-36.0); MEAN CORPUSCULAR VOLUME 87 fl (80-97); MONOCYTES % (AUTO) 0.5 % (3-13); PLATELET COUNT 280 10^3/uL (150-450); RED BLOOD COUNT 4.01 10^6/uL (3.72-5.28); RED CELL DISTRIBUTION WIDTH 17.2 % (11.5-14.0); SEGMENTED NEUTROPHILS % (AUTO) 90.9 % (42-78); TOTAL CELLS COUNTED % (AUTO) 100 %; WHITE BLOOD COUNT 5.9 10^3/uL (4.0-10.5)
--- NOTE | 2017-12-13 22:56 | RADIOLOGY REPORT (SQ) ---
EXAM DESCRIPTION: CT HEAD WITHOUT CLINICAL HISTORY: acute stroke COMPARISON: None Available TECHNIQUE: Contiguous axial CT images of the head were obtained. Coronal and sagittal reconstructions were created from the axial data. This exam was performed according to our departmental dose-optimization program, which includes automated exposure control, adjustment of the mA and/or kV according to patient size and/or use of iterative reconstruction technique. FINDINGS: There is no evidence of acute mass, mass effect, midline shift or hemorrhage. The ventricles and extra-axial CSF spaces are unremarkable. The brain parenchyma appears normal for the patient's age. No acute abnormalities of the bones is seen. IMPRESSION: No acute intracranial abnormality.
[2017-12-13 22:59] LABS: INTERNATIONAL RATION (INR) 0.99; PROTHROMBIN TIME 13.8 SEC (11.4-15.4)
[2017-12-13 23:00] LABS: PARTIAL THROMBOPLASTIN TIME 22.1 SEC (23.5-35.8)
[2017-12-13 23:06] LABS: ANION GAP 16 (5-19); BLOOD UREA NITROGEN 18 mg/dL (7-20); CALCIUM 9.2 mg/dL (8.4-10.2); CARBON DIOXIDE 18 mmol/L (22-30); CHLORIDE 104 mmol/L (98-107); GLUCOSE 101 mg/dL (75-110); POTASSIUM 4.7 mmol/L (3.6-5.0); SODIUM 138.2 mmol/L (137-145)
--- NOTE | 2017-12-13 23:12 | EKG REPORT ---
SEVERITY:- OTHERWISE NORMAL ECG - SINUS TACHYCARDIA : Confirmed by: Salomon Clark MD 13-Dec-2017 23:12:23
[2017-12-13] MEDS ORDERED: ACETAMINOPHEN 325 MG SUPP.RECT PR ONE (23:19)
[2017-12-13] MEDS ORDERED: VANCOMYCIN HCL INJ 1000 MG VIAL IV ONE (23:38)
--- NOTE | 2017-12-14 00:15 | RADIOLOGY REPORT (SQ) ---
EXAM DESCRIPTION: CHEST SINGLE VIEW CLINICAL HISTORY: 62 years Female, acute stroke COMPARISON: 12/03/17 NUMBER OF VIEWS/TECHNIQUE: 1/AP LIMITATIONS: None. FINDINGS: Atelectasis or scar of the right lower lung consistent with prior CT report, 12/02/2017, normal cardiac silhouette, mild dextroconvexity. No pneumothorax. Intact bony thorax. IMPRESSION: No acute cardiopulmonary findings.
[2017-12-14 00:25] LABS: APPEARANCE,URINE CLOUDY; BILIRUBIN,URINE NEGATIVE (NEGATIVE); COLOR,URINE YELLOW; GLUCOSE, URINE NEGATIVE (NEGATIVE); KETONES,URINE NEGATIVE (NEGATIVE); LEUKOCYTE ESTERASE,URINE LARGE (NEGATIVE); NITRITE,URINE NEGATIVE (NEGATIVE); PROTEIN,URINE NEGATIVE (NEGATIVE); URINE SPECIFIC GRAVITY 1.018; UROBILINOGEN,URINE NEGATIVE mg/dL (<2.0)
--- NOTE | 2017-12-14 00:25 | RADIOLOGY REPORT (SQ) ---
EXAM DESCRIPTION: CTA HEAD (accession [id number]), CTA NECK (accession [id number]) CLINICAL HISTORY: 62 years Female, acute stroke COMPARISON: None. TECHNIQUE: No contrast. Multiplanar reformat. This exam was performed according to our departmental dose-optimization program, which includes automated exposure control, adjustment of the mA and/or kV according to patient size and/or use of iterative reconstruction technique. Limitation: Moderate motion artifact. No MIPS, FINDINGS: [place] is intact. No stenosis or occlusion. No aneurysm. No vascular disease. Carotid and vertebral system appear intact. No dissection. No stenosis or occlusion. IMPRESSION: Limitation due to motion artifact at the level of the mid cervical spine; consider repeat or surveillance CTA of the neck as clinically warranted. Else, unremarkable CTA of the head and neck.
--- NOTE | 2017-12-14 00:25 | RADIOLOGY REPORT (SQ) ---
EXAM DESCRIPTION: CTA HEAD (accession [id number]), CTA NECK (accession [id number]) CLINICAL HISTORY: 62 years Female, acute stroke COMPARISON: None. TECHNIQUE: No contrast. Multiplanar reformat. This exam was performed according to our departmental dose-optimization program, which includes automated exposure control, adjustment of the mA and/or kV according to patient size and/or use of iterative reconstruction technique. Limitation: Moderate motion artifact. No MIPS, FINDINGS: [place] is intact. No stenosis or occlusion. No aneurysm. No vascular disease. Carotid and vertebral system appear intact. No dissection. No stenosis or occlusion. IMPRESSION: Limitation due to motion artifact at the level of the mid cervical spine; consider repeat or surveillance CTA of the neck as clinically warranted. Else, unremarkable CTA of the head and neck.
[2017-12-14] MEDS ORDERED: NORMAL SALINE 1000 ML 1,000 ML IV ONE (00:40)
[2017-12-14] MEDS ORDERED: FLUCONAZOLE 400 MG/NS RTU 400 MG/200 ML RTUPB IV ONE (01:23)
[2017-12-14] MEDS ORDERED: IPRATROPIUM/ALBUTEROL 0.5-2.5 MG/3 ML AMPUL NEB PRN (01:28)
[2017-12-14] MEDS ORDERED: GUAIFENESIN SYRP 200 MG/10 ML UDC PO PRN (01:28)
[2017-12-14] MEDS ORDERED: ACETAMINOPHEN 325 MG TABLET PO PRN (01:28)
[2017-12-14] MEDS ORDERED: ATORVASTATIN CALCIUM 80 MG TABLET PO ONE (01:28)
[2017-12-14] MEDS ORDERED: ASPIRIN 81 MG TABLET, CHEWABLE PO ONE (01:28)
[2017-12-14] MEDS ORDERED: NORMAL SALINE 1000 ML 1,000 ML IV PRN (01:28)
[2017-12-14] MEDS ORDERED: CHLORPHENIRAMINE MALEATE 4 MG TABLET PO ONE (01:31)
[2017-12-14] MEDS ORDERED: VANCOMYCIN HCL 0 MG in DEXTROSE 5%-WATER 250 ML IV NR (01:45)
[2017-12-14] MEDS ORDERED: PIPERACILLIN/TAZOBACTAM 3.375 GM VIAL IV PRN (01:49)
[2017-12-14 01:50] LABS: CREATINE KINASE 32 U/L (30-135)
[2017-12-14] MEDS: IPRATROPIUM/ALBUTEROL 0.5-2.5 MG/3 ML AMPUL NEB SCH ×4 (02:15→19:43)
[2017-12-14] MEDS ORDERED: LACTULOSE SYRUP 20 GM/30 ML UDCUP PO ONE (03:32)
[2017-12-14] MEDS ORDERED: DEXTROSE 5%-1/2 NORMAL SALINE 1,000 ML IV ONE ×2 (03:33→03:47)
--- NOTE | 2017-12-14 03:48 | PDOC H&P ---
History of Present Illness Admission Date/PCP: 12/14/17 01:48 Patient complains of: Dysarthria and left sided facial droop History of Present Illness: COOKIE ARCHIBALD is a 62 year old female with a past medical history of multiple sclerosis resulting in paraplegia and bedbound state for 9 years. Over the past 2 weeks she has required hospitalization 3 times for aspiration pneumonia, fungemia and MS flare. Patient presents with 1 hour of fever of 103.1 mild dysarthria, delayed speech and left-sided facial droop. Her neurologic symptoms have returned to baseline subsequently not receiving TPA after an unremarkable CT of the head. Chest x- ray reveals left upper lobe infiltrate, urinalysis reveals pyuria, chemistry reveals lactic acid of 4.1. She started on empiric antibiotics and referred to the hospitalist for admission. Patient is awake and alert oriented 2 speaking clearly but with delay which is a known intermittent baseline. Past Medical History Cardiac Medical History: Reports: Hypertension Pulmonary Medical History: Reports: Pneumonia - aspiration Psychiatric Medical History: Denies: Depression Hematology: Reports: Anemia Past Surgical History Past Surgical History: Reports: Hysterectomy, Orthopedic Surgery - right elbow Social History Information Source: Patient, [facility] Records Lives with: Family Smoking Status: Unknown if Ever Smoked Frequency of Alcohol Use: Occasional Hx Recreational Drug Use: No Drugs: None Hx Prescription Drug Abuse: No - Advance Directive Resuscitation Status: Full Code Family History Family History: Hypertension Parental Family History Reviewed: Yes Children Family History Reviewed: Yes Sibling(s) Family History Reviewed.: Yes Medication/Allergy Home Medications: Amlodipine Besylate [Norvasc 10 mg Tablet] 5 mg PO Q12 12/03/17 Aspirin [Ecotrin 81 mg EC Tablet] 81 mg PO DAILY 12/03/17 Baclofen [Baclofen 20 mg Tablet] 20 mg PO Q8 12/03/17 Benzonatate [Tessalon Perles 100 mg Capsule] 100 mg PO Q12HP PRN 12/03/17 Butalb/Acetaminophen/Caffeine [Pnukqq-Epxqcaad-Pzjg 50-325-40] 1 tab PO Q6HP PRN 12/03/17 Calcium Carbonate [Calcium] 500 mg PO DAILY 12/03/17 Cholecalciferol (Vitamin D3) [Vitamin D3] 1,000 unit PO BID 12/03/17 Citalopram Hydrobromide [Celexa 40 mg Tablet] 40 mg PO DAILY 12/03/17 Gabapentin [Neurontin] 600 mg PO Q8 12/03/17 Ginkgo Biloba 120 mg PO DAILY 12/03/17 Indomethacin [Indocin 25 mg Capsule] 50 mg PO BIDBS 12/03/17 Meclizine HCl [Antivert 25 mg Tablet] 25 mg PO Q8HP PRN 12/03/17 Metoprolol Tartrate [Lopressor 25 mg Tablet] 12.5 mg PO Q12 12/03/17 Multivitamin [Tab-A-Miranda (Multiple Vitamin) Tablet] 1 tab PO DAILY 12/03/17 Omeprazole 40 mg PO DAILY 12/03/17 Sumatriptan Succinate [Imitrex 100 mg Tablet] 50 mg PO PRN PRN 12/03/17 Acetaminophen [Tylenol 650 mg Supp] 650 mg MA Q4HP PRN supp.rect 12/07/17 Hydralazine HCl [Apresoline 25 mg Tablet] 25 mg PO Q8 tablet 12/07/17 Ipratropium/Albuterol Sulfate [Duoneb 3 ml Ampul] 3 ml NEB RTQ4HP PRN vial.neb 12/07/17 Ondansetron [Zofran Odt 4 mg Tablet] 4 mg PO Q6HP PRN tab.rapdis 12/07/17 Ondansetron [Zofran Odt 4 mg Tablet] 4 mg PO Q6HP PRN tab.rapdis 12/07/17 Allergies/Adverse Reactions: No Known Allergies Allergy (Verified 12/02/17 07:45) Review of Systems ROS unobtainable: Due to mental status Physical Exam Vital Signs: Temp Pulse Resp BP Pulse Ox 102.9 F H 1 L 1 L 1/1 L 1 L 12/13/17 22:33 12/14/17 03:00 12/14/17 03:00 12/14/17 03:00 12/14/17 03:00 General appearance: PRESENT: cooperative, mild distress, obese, other - Chronically ill-appearing Head exam: PRESENT: atraumatic, normocephalic Eye exam: PRESENT: conjunctiva pink, EOMI, PERRLA. ABSENT: scleral icterus Ear exam: PRESENT: normal external ear exam Mouth exam: PRESENT: moist, tongue midline Neck exam: ABSENT: carotid bruit, JVD, lymphadenopathy, thyromegaly Respiratory exam: PRESENT: clear to auscultation subha. ABSENT: rales, rhonchi, wheezes Cardiovascular exam: PRESENT: RRR. ABSENT: diastolic murmur, rubs, systolic murmur Pulses: PRESENT: normal dorsalis pedis pul Vascular exam: PRESENT: normal capillary refill GI/Abdominal exam: PRESENT: firm, normal bowel sounds, tenderness - Left lower quadrant tenderness without guarding. ABSENT: distended, guarding, mass, organolmegaly, rebound Rectal exam: PRESENT: deferred Extremities exam: PRESENT: full ROM, other - Stage II sacral decubiti. ABSENT: calf tenderness, clubbing, pedal edema Neurological exam: PRESENT: alert, awake, oriented to person, oriented to place , oriented to situation, CN II-XII grossly intact. ABSENT: motor sensory deficit Psychiatric exam: PRESENT: appropriate affect, normal mood, unusual affect. ABSENT: homicidal ideation, suicidal ideation Skin exam: PRESENT: dry, intact, warm, other - Stage II sacral decubiti. ABSENT : cyanosis, rash Results Laboratory Results: 12/14/17 02:10 Lactic Acid 5.2 H Impressions: Chest X-Ray 12/13/17 22:25 IMPRESSION: No acute cardiopulmonary findings. Head CT 12/13/17 22:25 IMPRESSION: No acute intracranial abnormality. Head CTA 12/13/17 22:25 IMPRESSION: Limitation due to motion artifact at the level of the mid cervical spine; consider repeat or surveillance CTA of the neck as clinically warranted. Else, unremarkable CTA of the head and neck. Neck CTA 12/13/17 22:25 IMPRESSION: Limitation due to motion artifact at the level of the mid cervical spine; consider repeat or surveillance CTA of the neck as clinically warranted. Else, unremarkable CTA of the head and neck. Assessment & Plan - Diagnosis (1) Urinary tract infection Is this a current diagnosis for this admission?: Yes Plan: Empiric Zosyn and vancomycin, follow-up CBC blood and urine culture (2) Sepsis Is this a current diagnosis for this admission?: Yes Plan: Multiple possible sources including pneumonia, urinary tract infection, IV fluid challenge, pressors as needed, follow-up CBC blood and urine culture (3) TIA (transient ischemic attack) Is this a current diagnosis for this admission?: Yes Plan: Suspect more likely manifestation of multiple sclerosis flare. Multiple recent negative CT head imaging negative, however aspirin and Lipitor ordered. (4) Aspiration pneumonia Qualifiers: Aspiration pneumonia type: unspecified Laterality: bilateral Lung location: unspecified part of lung Qualified Code(s): J69.0 - Pneumonitis due to inhalation of food and vomit Is this a current diagnosis for this admission?: Yes Plan: N.p.o. with speech therapy consult (5) Constipation Qualifiers: Constipation type: other constipation type Qualified Code(s): K59.09 - Other constipation Is this a current diagnosis for this admission?: Yes Plan: Lactulose and Fleet enema as needed (6) Encephalopathy Is this a current diagnosis for this admission?: Yes Plan: Complicated by acute illness and multiple sclerosis, correcting underlying cause and supportive measures. (7) Stage II pressure ulcer of sacral region Is this a current diagnosis for this admission?: Yes Plan: Wound management, specialty bed (8) Multiple sclerosis Is this a current diagnosis for this admission?: Yes Plan: Supportive measures, discharge planning for outpatient requirements. - Time Time Spent: 50 to 70 Minutes - Inpatient Certification Medical Necessity: Need Close Monitoring Due to Risk of Patient Decompensation
[2017-12-14] MEDS ORDERED: DEXTROSE 5%-1/2 NORMAL SALINE 1,000 ML IV PRN ×2 (04:00→09:12)
[2017-12-14] MEDS ORDERED: NA PHOS,M-B/NA PHOS,DI-BA (ADULT) 133 ML ENEMA PR ONE (04:00)
[2017-12-14] MEDS: HEPARIN SOD (PORCINE) 5,000 UNIT/ML 1 ML SYRINGE SUBCUT SCH ×3 (05:31→21:30)
[2017-12-14] MEDS ORDERED: PIPERACILLIN SODIUM/TAZOBACTAM 3.375 GM in NORMAL SALINE 100 ML IV SCH (06:00)
[2017-12-14 06:36] LABS: HEMATOCRIT 29.9 % (36.0-47.0); HEMOGLOBIN 9.7 g/dL (12.0-15.5); MEAN CORPUSCULAR HEMOGLOBIN 28.7 pg (27.0-33.4); MEAN CORPUSCULAR HGB CONC 32.4 g/dL (32.0-36.0); MEAN CORPUSCULAR VOLUME 88 fl (80-97); RED BLOOD COUNT 3.39 10^6/uL (3.72-5.28); RED CELL DISTRIBUTION WIDTH 17.6 % (11.5-14.0)
[2017-12-14 06:42] LABS: ANION GAP 12 (5-19); BLOOD UREA NITROGEN 15 mg/dL (7-20); CALCIUM 7.5 mg/dL (8.4-10.2); CARBON DIOXIDE 13 mmol/L (22-30); CHLORIDE 115 mmol/L (98-107); GLUCOSE 137 mg/dL (75-110); POTASSIUM 4.3 mmol/L (3.6-5.0); SODIUM 140.4 mmol/L (137-145)
[2017-12-14 07:16] LABS: WHITE BLOOD COUNT 12.3 10^3/uL (4.0-10.5)
[2017-12-14 07:19] LABS: PLATELET COUNT 93 10^3/uL (150-450)
[2017-12-14 07:23] LABS: ABSOLUTE LYMPHOCYTES# (MANUAL) 1.1 10^3/uL (0.5-4.7); ABSOLUTE MONOCYTES # (MANUAL) 0.2 10^3/uL (0.1-1.4); ABSOLUTE NEUTROPHILS# (MANUAL) 10.9 10^3/uL (1.7-8.2); BAND NEUTROPHILS % (MANUAL) 21 % (3-5); BASOPHILS % (MANUAL) 0 % (0-2); EOSINOPHILS % (MANUAL) 0 % (0-6); LYMPHOCYTES % (MANUAL) 9 % (13-45); METAMYELOCYTES % (MANUAL) 6 % (0); MONOCYTES % (MANUAL) 2 % (3-13); SEGMENTED NEUTROPHILS % (MAN) 62 % (42-78); TOTAL CELLS COUNTED 100
[2017-12-14 07:25] LABS: ANISOCYTOSIS 2+; PLATELET COMMENT DECREASED; POLYCHROMASIA SLIGHT; ROULEAUX 1+; TOXIC GRANULATION 1+; TOXIC VACUOLATION PRESENT
[2017-12-14] MEDS ORDERED: NORMAL SALINE INJ/PF 0.9% 10 ML SDV IV PRN (08:59)
--- NOTE | 2017-12-14 08:59 | Operative Report ---
Operative Report DATE OF SURGERY: 12/14/17 PREOPERATIVE DIAGNOSIS: Septic shock POSTOPERATIVE DIAGNOSIS: Same OPERATION: 1. Ultrasound directed insertion of right internal jugular vein central venous access catheter SURGEON: MAKRIE PRECIADO ANESTHESIA: Local TISSUE REMOVED OR ALTERED: None COMPLICATIONS: None ESTIMATED BLOOD LOSS: Scant INTRAOPERATIVE FINDINGS: See below PROCEDURE: Informed consent was obtained. The patient was placed in Trendelenburg the right neck and chest wall were exposed, and prepped and draped in a sterile fashion. Surgical plan and surgical timeout discussed. The right neck was anesthetized with 1% lidocaine without epinephrine. Using the variable frequency linear transducer, real time, a 18-gauge needle and wire were threaded into the right internal jugular vein. The tract was dilated up, the dilator removed, and the triple-lumen central venous access catheter was threaded into the right internal jugular vein uneventfully to the hub. There was excellent aspiration and flush of saline through all 3 lumens. The catheter was affixed to the skin with a Biopatch and 2-0 silk suture; sterile dressing applied. The patient tolerated the procedure well. There were no complications. Portable upright chest x-ray pending at time of dictation.
[2017-12-14] MEDS ORDERED: NOREPINEPHRINE BITARTRATE INJ/PF 4 MG/4 ML SDV IV ONE ×2 (09:06→14:44)
--- NOTE | 2017-12-14 09:20 | RADIOLOGY REPORT (SQ) ---
EXAM DESCRIPTION: CHEST SINGLE VIEW COMPLETED DATE/TIME: 12/14/2017 8:48 am REASON FOR STUDY: post central line COMPARISON: Previous day. NUMBER OF VIEWS: Two view TECHNIQUE: Frontal and lateral radiographic images of the chest acquired. LIMITATIONS: None. FINDINGS: LUNGS AND PLEURA: No significant change. No pneumothorax. MEDIASTINUM AND HILAR STRUCTURES: Stable heart size and mediastinal structures. HEART AND VASCULAR STRUCTURES: Stable appearance. SUPPORT DEVICES: Right IJ central line tip overlying right atrium. BONES: No acute findings. OTHER: No other significant finding. IMPRESSION: Right-sided central line placement. No pneumothorax. TECHNICAL DOCUMENTATION: JOB ID: [id number] [employer]- All Rights Reserved Reading location - IP/workstation name: [email or web address]
[2017-12-14] MEDS: DEXTROSE 5%-WATER 250 ML with NOREPINEPHRINE BITARTRATE 4 MG IV PRN ×4 (09:21→20:15)
[2017-12-14] MEDS: GUAIFENESIN 600 MG TABLET.SA PO SCH ×2 (11:57→21:30)
[2017-12-14] MEDS: ASPIRIN 81 MG TABLET, CHEWABLE PO SCH (11:57)
[2017-12-14] MEDS: VANCOMYCIN HCL 750 MG in DEXTROSE 5%-WATER 250 ML IV SCH ×2 (12:28→21:34)
[2017-12-14] MEDS: FLUTICASONE NASAL SPRAY 50 MCG/SPRY 120 SPRAY/16 GM NASL SCH ×2 (12:28→21:35)
[2017-12-14] MEDS: PIPERACILLIN SODIUM/TAZOBACTAM 3.375 GM in NORMAL SALINE 100 ML IV SCH ×3 (12:28→23:56)
[2017-12-14] MEDS ORDERED: DEXTROSE 5%-NORMAL SALINE 1,000 ML IV PRN (14:05)
[2017-12-14 14:16] LABS: PATH REVIEW PATHOLOGIST REVIEWED
[2017-12-14] MEDS ORDERED: ACETAMINOPHEN 650 MG SUPP.RECT PR ONE (14:31)
[2017-12-14] MEDS: ACETAMINOPHEN 650 MG SUPP.RECT PR PRN (14:35)
[2017-12-14] MEDS ORDERED: VASOPRESSIN INJ 20 UNIT/1 ML VIAL ONE (15:03)
[2017-12-14] MEDS: DEXTROSE 5%-WATER 250 ML with VASOPRESSIN 100 UNIT IV PRN ×2 (15:05)
[2017-12-14 15:12] LABS: ARTERIAL BLOOD BASE EXCESS -19.3 mmol/L; ARTERIAL BLOOD FIO2 4L; ARTERIAL BLOOD H2CO3 1.07 mmol/L (1.05-1.35); ARTERIAL BLOOD O2 SATURATION 85.5 % (94-98); ARTERIAL BLOOD PCO2 35.6 mmHg (35-45); ARTERIAL BLOOD PO2 68.2 mmHg (80-100); ARTERIAL BLOOD TOTAL CO2 11.1 mmol/L (21-25)
[2017-12-14 15:14] LABS: ARTERIAL BLOOD PH 7.07 (7.35-7.45)
[2017-12-14] MEDS ORDERED: PHENYLEPHRINE HCL INJ/PF 10 MG/1 ML SDV ONE (15:35)
[2017-12-14] MEDS ORDERED: PROPOFOL 100 ML IV ONE (15:35)
[2017-12-14] MEDS ORDERED: MIDAZOLAM 2 MG/2 ML INJ ONE (15:39)
--- NOTE | 2017-12-14 15:45 | RADIOLOGY REPORT (SQ) ---
EXAM DESCRIPTION: CHEST SINGLE VIEW COMPLETED DATE/TIME: 12/14/2017 3:34 pm REASON FOR STUDY: difficulty breathing COMPARISON: 12/14/2017 at 0840 hours. NUMBER OF VIEWS: One view. TECHNIQUE: Single frontal radiographic view of the chest acquired. LIMITATIONS: None. FINDINGS: LUNGS AND PLEURA: Developing basilar airspace disease and small pleural effusions. MEDIASTINUM AND HILAR STRUCTURES: No masses or contour abnormality. HEART AND VASCULATURE: Cardiac enlargement. Vascular congestion. BONES: No acute findings. HARDWARE: Central line. OTHER: No other significant finding. IMPRESSION: CARDIAC ENLARGEMENT. VASCULAR CONGESTION. DEVELOPING BASILAR AIRSPACE DISEASE, ATELECT ASIS OR PULMONARY EDEMA, AND SMALL PLEURAL EFFUSIONS. TECHNICAL DOCUMENTATION: JOB ID: [id number] [employer]- All Rights Reserved Reading location - IP/workstation name: [email or web address]
[2017-12-14] MEDS ORDERED: MIDAZOLAM HCL 50 MG/100 ML RTUINJ IV ONE (16:12)
--- NOTE | 2017-12-14 16:27 | RADIOLOGY REPORT (SQ) ---
EXAM DESCRIPTION: CHEST SINGLE VIEW COMPLETED DATE/TIME: 12/14/2017 4:14 pm REASON FOR STUDY: intubation COMPARISON: 12/14/2017 EXAM PARAMETERS: NUMBER OF VIEWS: Two views TECHNIQUE: Single frontal radiographic view of the chest acquired. RADIATION DOSE: NA LIMITATIONS: None. FINDINGS: LUNGS AND PLEURA: There is ill-defined opacification in the lower lung palomo, left more t merida right. Portions of the left hemidiaphragm are indistinct. MEDIASTINUM AND HILAR STRUCTURES: Minimal left pleural effusion cannot be excluded. HEART AND VASCULAR STRUCTURES: Heart size is borderline. Mild pulmonary vascular congestion is prese nt. BONES: No acute findings. HARDWARE: Endotracheal tube has its tip 4 cm above the joie. A right internal jugular catheter ext ends to the right atrium. An NG tube extends to the stomach. OTHER: No other significant finding. IMPRESSION: Successful intubation. There is some degree of opacification both lung bases, left more than right. Borderline cardiomegaly with pulmonary vascular congestion. TECHNICAL DOCUMENTATION: JOB ID: [id number] [employer]- All Rights Reserved Reading location - IP/workstation name: [email or web address]
[2017-12-14 17:33] LABS: VENOUS BLOOD BASE EXCESS -17.2 mmol/L; VENOUS BLOOD PCO2 35.2 mmHg (35-63)
[2017-12-14 17:40] LABS: VENOUS BLOOD PH 7.11 (7.30-7.42)
--- NOTE | 2017-12-14 18:44 | Operative Report ---
Nonrecallable Operative Report DATE OF SURGERY: 12/14/17 PREOPERATIVE DIAGNOSIS: Septic shock POSTOPERATIVE DIAGNOSIS: Same OPERATION: Ultrasound directed insertion of right radial artery monitoring catheter, 18-gauge SURGEON: MARKIE PRECIADO ANESTHESIA: Local TISSUE REMOVED OR ALTERED: None COMPLICATIONS: None ESTIMATED BLOOD LOSS: 5 cc INTRAOPERATIVE FINDINGS: See below PROCEDURE: The patient was seen in the ICU room 12. Right wrist was exposed, bed put in appropriate position, and focused ultrasound performed the right wrist. Of note patient was in hemodynamic shock with vasoconstriction due to triple pressor therapy. The right radial artery was scanned and felt to be suitable for cannulation. Adjacent skin over the distal radial artery, just proximal to the flexor retinaculum was prepped with Betadine and anesthetized with 1% plain lidocaine. A suleman was made in the skin transversely with the 18-gauge needle and using ultrasound as a guide, the 13-gauge arterial pressure monitoring catheter was threaded into the right radial artery on first stick seeing the wire introducer kit. The catheter was hooked up to a arterial pressure monitoring with excellent waveform. The catheter was secured to the skin at 3 sites with 3-0 Prolene suture Biopatch and iodine applied. Patient tolerated the procedure well. An appropriate extension wrist brace was secured into position.
[2017-12-14] MEDS ORDERED: ACETAMINOPHEN 100 ML IV ONE (19:00)
[2017-12-14 19:54] LABS: ARTERIAL BLOOD BASE EXCESS -21.9 mmol/L; ARTERIAL BLOOD H2CO3 0.65 mmol/L (1.05-1.35); ARTERIAL BLOOD HCO3 6.3 mmol/L (20-26); ARTERIAL BLOOD O2 SATURATION 98.1 % (94-98); ARTERIAL BLOOD PCO2 21.7 mmHg (35-45); ARTERIAL BLOOD PO2 150.1 mmHg (80-100)
[2017-12-14 19:58] LABS: ARTERIAL BLOOD FIO2 70%
[2017-12-14 20:00] LABS: ARTERIAL BLOOD PH 7.08 (7.35-7.45)
[2017-12-14] MEDS ORDERED: NORMAL SALINE 1000 ML 2,000 ML IV ONE (20:05)
--- NOTE | 2017-12-14 20:44 | PDOC PROGRESS REPORT ---
Subjective Progress Note for:: 12/14/17 Subjective:: Patient seen several times today. She remained hypotensive in spite of aggressive IV fluids. She was started on levo fed, but this became maxed out. Vasopressin was then added. Patient also respiratory distress, acidosis, and hypoxia. She was then intubated. was called and informed of patient's poor performance and he desired intubation. He understands that patient's prognosis is poor. Reason For Visit: CVA SEPSIS UTI PNEUMONIA Physical Exam Vital Signs: Temp Pulse Resp BP Pulse Ox 102.9 F H 99 21 H 84/71 L 97 12/14/17 18:00 12/14/17 19:46 12/14/17 19:50 12/14/17 18:38 12/14/17 19:46 Intake & Output 12/13/17 12/14/17 12/15/17 06:59 06:59 06:59 Output Total 500 115 Balance -500 -115 Weight 68.5 kg GEN: NAD, currently intubated CV: RRR, NL S1S2 LUNGS:Bilateral crackles ABDOMEN Soft, NT, +BS EXTERMITIES: No e/c/c Results Laboratory Results: 12/14/17 05:50 12/14/17 05:50 12/14/17 12/14/17 12/14/17 02:10 05:50 05:50 WBC 12.3 H D RBC 3.39 L Hgb 9.7 L Hct 29.9 L MCV 88 MCH 28.7 MCHC 32.4 RDW 17.6 H Plt Count 93 L Seg Neutrophils % Not Reportable Lymphocytes % Not Reportable Monocytes % Not Reportable Eosinophils % Not Reportable Basophils % Not Reportable Absolute Neutrophils Not Reportable Absolute Lymphocytes Not Reportable Absolute Monocytes Not Reportable Absolute Eosinophils Not Reportable Absolute Basophils Not Reportable Carbonic Acid HCO3/H2CO3 Ratio ABG pH ABG pCO2 ABG pO2 ABG HCO3 ABG O2 Saturation ABG Base Excess VBG pH VBG pCO2 VBG HCO3 VBG Base Excess FiO2 Sodium 140.4 Potassium 4.3 Chloride 115 H Carbon Dioxide 13 L Anion Gap 12 BUN 15 Creatinine 0.96 Est GFR ( Amer) > 60 Est GFR (Non-Af Amer) 59 L Glucose 137 H Lactic Acid 5.2 H Calcium 7.5 L 12/14/17 12/14/17 12/14/17 14:57 17:20 19:45 WBC RBC Hgb Hct MCV MCH MCHC RDW Plt Count Seg Neutrophils % Lymphocytes % Monocytes % Eosinophils % Basophils % Absolute Neutrophils Absolute Lymphocytes Absolute Monocytes Absolute Eosinophils Absolute Basophils Carbonic Acid 1.07 0.65 L HCO3/H2CO3 Ratio 9:1 9:1 ABG pH 7.07 L* 7.08 L* ABG pCO2 35.6 21.7 L ABG pO2 68.2 L 150.1 H ABG HCO3 10.0 L 6.3 L ABG O2 Saturation 85.5 L 98.1 H ABG Base Excess -19.3 -21.9 VBG pH 7.11 L* VBG pCO2 35.2 VBG HCO3 11.0 L VBG Base Excess -17.2 FiO2 4L 70% Sodium Potassium Chloride Carbon Dioxide Anion Gap BUN Creatinine Est GFR ( Amer) Est GFR (Non-Af Amer) Glucose Lactic Acid Calcium Impressions: Head CT 12/13/17 22:25 IMPRESSION: No acute intracranial abnormality. Head CTA 12/13/17 22:25 IMPRESSION: Limitation due to motion artifact at the level of the mid cervical spine; consider repeat or surveillance CTA of the neck as clinically warranted. Else, unremarkable CTA of the head and neck. Neck CTA 12/13/17 22:25 IMPRESSION: Limitation due to motion artifact at the level of the mid cervical spine; consider repeat or surveillance CTA of the neck as clinically warranted. Else, unremarkable CTA of the head and neck. Chest X-Ray 12/14/17 08:34 IMPRESSION: Right-sided central line placement. No pneumothorax. Assessment & Plan - Diagnosis (1) Acute respiratory failure Qualifiers: Respiratory failure complication: unspecified whether with hypoxia or hypercapnia Qualified Code(s): J96.00 - Acute respiratory failure, unspecified whether with hypoxia or hypercapnia (2) Aspiration pneumonia Qualifiers: Aspiration pneumonia type: unspecified Laterality: bilateral Lung location: unspecified part of lung Qualified Code(s): J69.0 - Pneumonitis due to inhalation of food and vomit Is this a current diagnosis for this admission?: Yes (4) Urinary tract infection Is this a current diagnosis for this admission?: Yes - Plan Summary Plan Summary: Continue broad-spectrum antibiotics for now including Zosyn, Vanco. Will also add Levaquin IV to cover atypicals as patient continues to spike. Follow blood and urine culture results and adjust antibiotics as needed. Continue aggressive resuscitation and IV fluids for now. We will consult Dr. Harp of pulmonology for vent management. Again, prognosis is extremely poor. Discussed with over the phone and he verbalized understanding and expressed appreciation of patient care. Critical care time spent 45 minutes.
[2017-12-14] MEDS: FLUCONAZOLE 100 MG TABLET NG SCH (21:30)
[2017-12-14] MEDS: LEVOFLOXACIN 750 MG/D5W RTU 750 MG/150 ML RTUPB IV SCH (21:32)
[2017-12-14] MEDS ORDERED: SODIUM BICARBONATE 8.4% INJ 50 MEQ/50 ML DISP.SYRIN ONE (21:54)
[2017-12-14] MEDS ORDERED: PANTOPRAZOLE SODIUM 40 MG VIAL IV ONE (22:00)
[2017-12-14] MEDS: IMIPENEM/CILASTATIN SODIUM 500 MG in NORMAL SALINE 100 ML IV SCH (22:21)
[2017-12-14] MEDS: HYDROCORTISONE SOD SUCCINATE INJ/PF 100 MG/2 ML SDV IV SCH (22:24)
[2017-12-14] MEDS ORDERED: CEFEPIME 2 GM/D5W RTU 2 GM/50 ML RTUPB IV ONE ×2 (22:30→23:01)
[2017-12-14] MEDS ORDERED: SODIUM BICARBONATE 8.4% INJ 50 MEQ/50 ML DISP.SYRIN IV ONE (22:45)
[2017-12-14] MEDS: MIDAZOLAM HCL 50 MG/100 ML RTUINJ IV PRN (23:56)
[2017-12-15] MEDS ORDERED: SODIUM BICARBONATE 8.4% INJ 50 MEQ/50 ML DISP.SYRIN IV ONE ×3 (00:15→22:30)
[2017-12-15] MEDS ORDERED: SODIUM BICARBONATE 8.4% INJ 50 MEQ/50 ML DISP.SYRIN ONE ×4 (00:21→22:20)
[2017-12-15] MEDS: DEXTROSE 5%-WATER 250 ML with PHENYLEPHRINE HCL 40 MG IV PRN ×12 (01:14→20:48)
[2017-12-15] MEDS: DEXTROSE 5%-WATER 250 ML with NOREPINEPHRINE BITARTRATE 4 MG IV PRN ×6 (01:35→16:37)
[2017-12-15] MEDS: IPRATROPIUM/ALBUTEROL 0.5-2.5 MG/3 ML AMPUL NEB SCH ×4 (02:09→20:25)
[2017-12-15] MEDS ORDERED: SODIUM BICARBONATE 8.4% INJ 50 MEQ/50 ML DISP.SYRIN IV PRN (03:53)
[2017-12-15] MEDS ORDERED: DEXTROSE 5%-WATER 1000 ML 1,000 ML with SODIUM BICARBONATE 150 MEQ IV PRN ×4 (03:53→22:18)
[2017-12-15] MEDS: HYDROCORTISONE SOD SUCCINATE INJ/PF 100 MG/2 ML SDV IV SCH (05:07)
[2017-12-15] MEDS: PANTOPRAZOLE SODIUM 40 MG VIAL IV SCH (05:07)
[2017-12-15] MEDS: PIPERACILLIN SODIUM/TAZOBACTAM 3.375 GM in NORMAL SALINE 100 ML IV SCH ×2 (05:07→12:00)
[2017-12-15] MEDS: IMIPENEM/CILASTATIN SODIUM 500 MG in NORMAL SALINE 100 ML IV SCH ×3 (05:08→21:54)
[2017-12-15] MEDS: HEPARIN SOD (PORCINE) 5,000 UNIT/ML 1 ML SYRINGE SUBCUT SCH ×3 (05:08→22:00)
[2017-12-15] MEDS ORDERED: CALCIUM GLUCONATE 2,222 MG in DEXTROSE 5%-WATER 100 ML IV ONE (05:14)
[2017-12-15 06:02] LABS: ARTERIAL BLOOD BASE EXCESS -20.1 mmol/L; ARTERIAL BLOOD H2CO3 0.64 mmol/L (1.05-1.35); ARTERIAL BLOOD HCO3 7.1 mmol/L (20-26); ARTERIAL BLOOD O2 SATURATION 98.3 % (94-98); ARTERIAL BLOOD PCO2 21.3 mmHg (35-45); ARTERIAL BLOOD TOTAL CO2 7.8 mmol/L (21-25)
[2017-12-15 06:08] LABS: ANION GAP 19 (5-19); BLOOD UREA NITROGEN 16 mg/dL (7-20); CHLORIDE 107 mmol/L (98-107); PHOSPHORUS 5.6 mg/dL (2.5-4.5); SODIUM 134.3 mmol/L (137-145)
[2017-12-15 06:12] LABS: ARTERIAL BLOOD FIO2 70%
[2017-12-15 06:14] LABS: ARTERIAL BLOOD PH 7.14 (7.35-7.45)
--- NOTE | 2017-12-15 06:15 | RADIOLOGY REPORT (SQ) ---
EXAM DESCRIPTION: CHEST SINGLE VIEW CLINICAL HISTORY: resp failure COMPARISON: 12/14/2017 FINDINGS: Single frontal view of the chest. Endotracheal tube at the level of the clavicles. NG tube with tip below the diaphragm. Right IJ central venous catheter with tip in the right atrium. Cardiomegaly. Pulmonary vascular congestion with interstitial edema and likely small bilateral pleural effusions. No pneumothorax identified. Leads overlie the chest. No acute osseous abnormalities. Upper abdominal soft tissues are unremarkable. IMPRESSION: 1. No significant interval change. Persistent cardiomegaly with pulmonary vascular congestion and small bilateral pleural effusions.
[2017-12-15 06:20] LABS: CREATINE KINASE MB 12.5 ng/mL (<4.55)
[2017-12-15 06:21] LABS: CARBON DIOXIDE 8 mmol/L (22-30); POTASSIUM 5.7 mmol/L (3.6-5.0)
[2017-12-15] MEDS ORDERED: CALCIUM GLUCONATE 1000 MG/10 ML INJ IV ONE ×4 (06:22→22:00)
[2017-12-15 06:23] LABS: GLUCOSE 612 mg/dL (75-110)
[2017-12-15 06:24] LABS: TROPONIN I 0.186 ng/mL
[2017-12-15] MEDS: ACETAMINOPHEN 650 MG SUPP.RECT PR PRN (07:09)
[2017-12-15 07:37] LABS: HEMATOCRIT 25.3 % (36.0-47.0); MEAN CORPUSCULAR HEMOGLOBIN 28.2 pg (27.0-33.4); MEAN CORPUSCULAR HGB CONC 30.8 g/dL (32.0-36.0); RED BLOOD COUNT 2.77 10^6/uL (3.72-5.28); RED CELL DISTRIBUTION WIDTH 19.7 % (11.5-14.0)
[2017-12-15 07:43] LABS: HEMOGLOBIN 7.8 g/dL (12.0-15.5)
[2017-12-15 07:44] LABS: MEAN CORPUSCULAR VOLUME 92 fl (80-97)
[2017-12-15 07:47] LABS: PLATELET COUNT 80 10^3/uL (150-450)
[2017-12-15 07:50] LABS: ABSOLUTE MONOCYTES # (MANUAL) 0.2 10^3/uL (0.1-1.4); ABSOLUTE NEUTROPHILS# (MANUAL) 17.8 10^3/uL (1.7-8.2); BAND NEUTROPHILS % (MANUAL) 14 % (3-5); BASOPHILS % (MANUAL) 0 % (0-2); EOSINOPHILS % (MANUAL) 0 % (0-6); LYMPHOCYTES % (MANUAL) 10 % (13-45); METAMYELOCYTES % (MANUAL) 3 % (0); MONOCYTES % (MANUAL) 1 % (3-13); SEGMENTED NEUTROPHILS % (MAN) 72 % (42-78); TOTAL CELLS COUNTED 100
[2017-12-15] MEDS ORDERED: NORMAL SALINE 250 ML IV PRN ×2 (07:52)
[2017-12-15 07:54] LABS: TOXIC GRANULATION 2+; TOXIC VACUOLATION PRESENT
[2017-12-15 07:55] LABS: ACANTHOCYTES SLIGHT; ANISOCYTOSIS 2+; BURR CELLS 1+; PLATELET COMMENT DECREASED; POIKILOCYTOSIS 2+; POLYCHROMASIA SLIGHT; SCHISTOCYTES 1+
[2017-12-15] MEDS: NORMAL SALINE 1000 ML 1,000 ML IV PRN ×2 (08:00→17:13)
--- NOTE | 2017-12-15 08:09 | PDOC CONSULTATION ---
Consultation Consult Date: 12/14/17 Attending physician:: DIANNA PEARCE Consult reason:: pna/gn sepsis History of Present Illness Admission Date/PCP: 12/14/17 01:48 History of Present Illness: COOKIE ARCHIBALD is a 62 year old female with a past medical history of multiple sclerosis resulting in paraplegia and bedbound state for 9 years. Over the past 2 weeks she has required hospitalization 3 times for aspiration pneumonia, fungemia and MS flare. Patient presents with 1 hour of fever of 103.1 mild dysarthria, delayed speech and left-sided facial droop. Her neurologic symptoms have returned to baseline subsequently not receiving TPA after an unremarkable CT of the head. Chest x- ray reveals left upper lobe infiltrate, urinalysis reveals pyuria, chemistry reveals lactic acid of 4.1. She started on empiric antibiotics and referred to the hospitalist for admission. Patient is awake and alert oriented 2 speaking clearly but with delay which is a known intermittent baseline. Past Medical History Cardiac Medical History: Reports: Hypertension Pulmonary Medical History: Reports: Pneumonia - aspiration Psychiatric Medical History: Denies: Depression Hematology: Reports: Anemia Past Surgical History Past Surgical History: Reports: Hysterectomy, Orthopedic Surgery - right elbow Social History Information Source: Relative, [facility] Records Lives with: Spouse/Significant other Smoking Status: Never Smoker Frequency of Alcohol Use: None Hx Recreational Drug Use: No Drugs: None Hx Prescription Drug Abuse: No Have you had any respiratory illnesses as a child?: No Have you been exposed to any sick contacts recently?: No Have you had any recent respiratory illnesses?: Yes Have you travelled outside of [place] in the past 12 months?: No - Advance Directive Resuscitation Status: Full Code Family History Parental Family History Reviewed: No Children Family History Reviewed: No Sibling(s) Family History Reviewed.: No Medication/Allergy Home Medications: Amlodipine Besylate [Norvasc 10 mg Tablet] 5 mg PO Q12 12/03/17 Aspirin [Ecotrin 81 mg EC Tablet] 81 mg PO DAILY 12/03/17 Baclofen [Baclofen 20 mg Tablet] 20 mg PO Q8 12/03/17 Butalb/Acetaminophen/Caffeine [Ejifrw-Nbkgnfve-Qjky 50-325-40] 1 tab PO Q6HP PRN 12/03/17 Citalopram Hydrobromide [Celexa 40 mg Tablet] 40 mg PO DAILY 12/03/17 Gabapentin [Neurontin] 600 mg PO Q8 12/03/17 Ginkgo Biloba 120 mg PO DAILY 12/03/17 Indomethacin [Indocin 25 mg Capsule] 50 mg PO BIDBS 12/03/17 Meclizine HCl [Antivert 25 mg Tablet] 25 mg PO Q8HP PRN 12/03/17 Metoprolol Tartrate [Lopressor 25 mg Tablet] 12.5 mg PO Q12 12/03/17 Multivitamin [Tab-A-Miranda (Multiple Vitamin) Tablet] 1 tab PO DAILY 12/03/17 Sumatriptan Succinate [Imitrex 100 mg Tablet] 50 mg PO PRN PRN 12/03/17 Allergies/Adverse Reactions: No Known Allergies Allergy (Verified 12/02/17 07:45) Review of Systems ROS unobtainable: Due to endotracheal tube Physical Exam Vital Signs: Temp Pulse Resp BP Pulse Ox 101.4 F H 96 18 103/57 L 94 12/15/17 06:00 12/15/17 06:00 12/15/17 07:20 12/15/17 06:00 12/15/17 06:00 Intake & Output 12/14/17 12/15/17 12/16/17 06:59 06:59 06:59 Intake Total 6204 Output Total 500 495 Balance -500 5709 Weight 78.3 kg General appearance: PRESENT: no acute distress, disheveled, well-developed. ABSENT: cooperative Head exam: PRESENT: atraumatic, normocephalic Eye exam: PRESENT: conjunctiva pale. ABSENT: EOMI, nystagmus, periorbital swelling, scleral icterus Mouth exam: PRESENT: dry mucosa, neck supple, tongue midline, other - ET tube Neck exam: ABSENT: carotid bruit, JVD, lymphadenopathy, thyromegaly, tracheal deviation, tracheostomy Respiratory exam: PRESENT: crackles, decreased breath sounds, prolonged expiratory phas, rhonchi, symmetrical, tachypnea, unlabored, wheezes. ABSENT: retraction, stridor Cardiovascular exam: PRESENT: irregular rhythm Pulses: PRESENT: normal radial pulses GI/Abdominal exam: PRESENT: soft Extremities exam: ABSENT: clubbing, joint swelling Musculoskeletal exam: ABSENT: deformity, dislocation Neurological exam: ABSENT: alert, awake, oriented to person - [id number] Skin exam: PRESENT: dry, pallor Results Laboratory Results: 12/15/17 06:45 12/15/17 05:40 12/14/17 12/14/17 12/14/17 14:57 17:20 19:45 WBC RBC Hgb Hct MCV MCH MCHC RDW Plt Count Seg Neutrophils % Lymphocytes % Monocytes % Eosinophils % Basophils % Absolute Neutrophils Absolute Lymphocytes Absolute Monocytes Absolute Eosinophils Absolute Basophils Carbonic Acid 1.07 0.65 L HCO3/H2CO3 Ratio 9:1 9:1 ABG pH 7.07 L* 7.08 L* ABG pCO2 35.6 21.7 L ABG pO2 68.2 L 150.1 H ABG HCO3 10.0 L 6.3 L ABG O2 Saturation 85.5 L 98.1 H ABG Base Excess -19.3 -21.9 VBG pH 7.11 L* VBG pCO2 35.2 VBG HCO3 11.0 L VBG Base Excess -17.2 FiO2 4L 70% Sodium Potassium Chloride Carbon Dioxide Anion Gap BUN Creatinine Est GFR ( Amer) Est GFR (Non-Af Amer) Glucose Lactic Acid Calcium Phosphorus Magnesium 12/14/17 12/15/17 12/15/17 21:05 01:25 05:40 WBC RBC Hgb Hct MCV MCH MCHC RDW Plt Count Seg Neutrophils % Lymphocytes % Monocytes % Eosinophils % Basophils % Absolute Neutrophils Absolute Lymphocytes Absolute Monocytes Absolute Eosinophils Absolute Basophils Carbonic Acid 0.64 L HCO3/H2CO3 Ratio 11:1 ABG pH 7.14 L* ABG pCO2 21.3 L ABG pO2 147.0 H ABG HCO3 7.1 L ABG O2 Saturation 98.3 H ABG Base Excess -20.1 VBG pH VBG pCO2 VBG HCO3 VBG Base Excess FiO2 70% Sodium Potassium Chloride Carbon Dioxide Anion Gap BUN Creatinine Est GFR ( Amer) Est GFR (Non-Af Amer) Glucose Lactic Acid 8.9 H 13.0 H Calcium Phosphorus Magnesium 12/15/17 12/15/17 12/15/17 05:40 05:40 06:45 WBC Cancelled 20.0 H RBC Cancelled 2.77 L Hgb Cancelled 7.8 L Hct Cancelled 25.3 L MCV Cancelled 92 D MCH Cancelled 28.2 MCHC Cancelled 30.8 L RDW Cancelled 19.7 H Plt Count Cancelled 80 L Seg Neutrophils % Cancelled Not Reportable Lymphocytes % Cancelled Not Reportable Monocytes % Cancelled Not Reportable Eosinophils % Cancelled Not Reportable Basophils % Cancelled Not Reportable Absolute Neutrophils Cancelled Not Reportable Absolute Lymphocytes Cancelled Not Reportable Absolute Monocytes Cancelled Not Reportable Absolute Eosinophils Cancelled Not Reportable Absolute Basophils Cancelled Not Reportable Carbonic Acid HCO3/H2CO3 Ratio ABG pH ABG pCO2 ABG pO2 ABG HCO3 ABG O2 Saturation ABG Base Excess VBG pH VBG pCO2 VBG HCO3 VBG Base Excess FiO2 Sodium 134.3 L Potassium 5.7 H D Chloride 107 Carbon Dioxide 8 L* Anion Gap 19 BUN 16 Creatinine 1.07 Est GFR ( Amer) > 60 Est GFR (Non-Af Amer) 52 L Glucose 612 H* Lactic Acid Calcium 6.0 L* Phosphorus 5.6 H Magnesium 1.4 L 12/15/17 05:40 CK-MB (CK-2) 12.50 H Troponin I 0.186 Impressions: Head CT 12/13/17 22:25 IMPRESSION: No acute intracranial abnormality. Head CTA 12/13/17 22:25 IMPRESSION: Limitation due to motion artifact at the level of the mid cervical spine; consider repeat or surveillance CTA of the neck as clinically warranted. Else, unremarkable CTA of the head and neck. Neck CTA 12/13/17 22:25 IMPRESSION: Limitation due to motion artifact at the level of the mid cervical spine; consider repeat or surveillance CTA of the neck as clinically warranted. Else, unremarkable CTA of the head and neck. Chest X-Ray 12/15/17 06:00 IMPRESSION: 1. No significant interval change. Persistent cardiomegaly with pulmonary vascular congestion and small bilateral pleural effusions. Assessment & Plan - Diagnosis (1) Acute respiratory failure Qualifiers: Respiratory failure complication: unspecified whether with hypoxia or hypercapnia Qualified Code(s): J96.00 - Acute respiratory failure, unspecified whether with hypoxia or hypercapnia Plan: compensaste for acidosis Labs- All tests 24 hr 12/14/17 12/14/17 12/15/17 14:57 19:45 05:40 ABG pH 7.07 L* 7.08 L* 7.14 L* ABG pCO2 35.6 21.7 L 21.3 L ABG pO2 68.2 L 150.1 H 147.0 H FiO2 4L 70% 12/15/17 11:25 ABG pH 7.12 L* ABG pCO2 ABG pO2 123.6 H FiO2 65% Labs- All tests 24 hr 12/13/17 12/14/17 12/14/17 22:24 05:50 19:45 FiO2 70% Carbon Dioxide 18 L 13 L 12/15/17 05:40 FiO2 Carbon Dioxide 8 L* (2) Aspiration pneumonia Qualifiers: Aspiration pneumonia type: unspecified Laterality: bilateral Lung location: unspecified part of lung Qualified Code(s): J69.0 - Pneumonitis due to inhalation of food and vomit Is this a current diagnosis for this admission?: Yes Plan: gstric content in ET tube (3) Severe sepsis Is this a current diagnosis for this admission?: Yes Plan: 3 pressors Labs- All tests 24 hr 12/13/17 12/14/17 12/15/17 22:24 05:50 06:45 WBC 5.9 12.3 H D 20.0 H Band Neutrophils % 21 H 14 H (4) Multiple sclerosis Is this a current diagnosis for this admission?: Yes (5) Thrombocytopenia Is this a current diagnosis for this admission?: Yes Plan: Labs- All tests 24 hr 12/13/17 12/14/17 12/15/17 22:24 05:50 06:45 Plt Count 280 93 L 80 L Labs- All tests 24 hr 12/13/17 12/14/17 12/15/17 22:24 05:50 06:45 Hgb 11.5 L 9.7 L 7.8 L - Time Total Critical Time (Minutes): 60
--- NOTE | 2017-12-15 09:16 | EKG REPORT ---
SEVERITY:- ABNORMAL ECG - ATRIAL FIBRILLATION CAN NOT R/O SINUS WITH 1ST DEGREE HEART BLOCK VS ACCELERATED LEMUEL RHYTHM. REC RE PAET EKG ABNRM R PROG, CONSIDER ASMI OR LEAD PLACEMENT : Confirmed by: Elham Ramirez 15-Dec-2017 09:16:04
[2017-12-15] MEDS ORDERED: DEXTROSE 40% GEL 15 GM TUBE PO PRN (10:21)
[2017-12-15] MEDS ORDERED: DEXTROSE 50%-WATER SYRINGE 12.5 GM/25 ML DOSE IV PRN (10:21)
[2017-12-15] MEDS ORDERED: DEXTROSE 40% GEL 15 GM TUBE X 2 PO PRN (10:21)
[2017-12-15] MEDS ORDERED: DEXTROSE 50%-WATER SYRINGE 25 GM/50 ML DOSE IV PRN (10:21)
[2017-12-15] MEDS ORDERED: GLUCAGON,HUMAN RECOMB 1 MG INJ IM PRN (10:21)
[2017-12-15] MEDS ORDERED: INSULIN LISPRO 100 UNIT/ML 3 ML VIAL SUBCUT PRN (10:22)
[2017-12-15 10:28] LABS: APPEARANCE,URINE SLIGHTLY-CLOUDY; BILIRUBIN,URINE NEGATIVE (NEGATIVE); COLOR,URINE YELLOW; GLUCOSE, URINE >=500 mg/dL (NEGATIVE); KETONES,URINE NEGATIVE (NEGATIVE); LEUKOCYTE ESTERASE,URINE SMALL (NEGATIVE); NITRITE,URINE NEGATIVE (NEGATIVE); PROTEIN,URINE 30 mg/dL (NEGATIVE); URINE SPECIFIC GRAVITY 1.014
[2017-12-15] MEDS: ASPIRIN 81 MG TABLET, CHEWABLE PO SCH (10:44)
[2017-12-15] MEDS: GUAIFENESIN 600 MG TABLET.SA PO SCH ×2 (10:46→21:59)
[2017-12-15] MEDS: FLUTICASONE NASAL SPRAY 50 MCG/SPRY 120 SPRAY/16 GM NASL SCH ×2 (10:46→22:00)
[2017-12-15] MEDS: MAGNESIUM SULFATE/D5W 1 GM/100 ML RTUPB IV SCH ×3 (10:48→13:17)
[2017-12-15] MEDS: VANCOMYCIN HCL 750 MG in DEXTROSE 5%-WATER 250 ML IV SCH ×2 (10:49→21:55)
[2017-12-15] MEDS: CEFEPIME 2 GM/D5W RTU 2 GM/50 ML RTUPB IV SCH ×2 (10:50→21:51)
[2017-12-15] MEDS: MIDAZOLAM HCL 50 MG/100 ML RTUINJ IV PRN (10:50)
--- NOTE | 2017-12-15 10:54 | PDOC CONSULTATION ---
Consultation Consult Date: 12/15/17 Attending physician:: DIANNA MUELLERIME Consult reason:: Hypotension, septic shock, positive troponin I elevation History of Present Illness Admission Date/PCP: 12/14/17 01:48 Patient complains of: Patient is intubated and sedated. History of Present Illness: COOKIE ARCHIBALD is a 62 year old female with a past medical history of multiple sclerosis resulting in paraplegia and bedbound state for 9 years. Over the past 2 weeks she has required hospitalization 3 times for aspiration pneumonia, fungemia and MS flare. Patient presents with 1 hour of fever of 103.1 mild dysarthria, delayed speech and left-sided facial droop. Her neurologic symptoms have returned to baseline subsequently not receiving TPA after an unremarkable CT of the head. Chest x- ray reveals left upper lobe infiltrate, urinalysis reveals pyuria, chemistry reveals lactic acid of 4.1. She started on empiric antibiotics and referred to the hospitalist for admission. Patient is awake and alert oriented 2 speaking clearly but with delay which is a known intermittent baseline. Last night, patient deteriorated and developed respiratory distress and was subsequently intubated and sedated. Patient also developed severe hypertension. Currently on 3 vasopressors including Levophed, Jose L-Synephrine and vasopressin on at around maximum dose. There is also worsening lactic acidosis, elevated blood sugar etc. Patient most recent hospitalization reviewed. Patient was recently transferred to [facility] and was subsequently discharged. Patient has history of significant multiple sclerosis, there is questionable history of strokes. Past Medical History Cardiac Medical History: Reports: Hypertension Pulmonary Medical History: Reports: Pneumonia - aspiration Psychiatric Medical History: Denies: Depression Hematology: Reports: Anemia Past Surgical History Past Surgical History: Reports: Hysterectomy, Orthopedic Surgery - right elbow Social History Information Source: [facility] Records Lives with: Spouse/Significant other Smoking Status: Never Smoker Frequency of Alcohol Use: None Hx Recreational Drug Use: No Drugs: None Hx Prescription Drug Abuse: No - Advance Directive Resuscitation Status: Full Code Family History Family History: Reviewed & Not Pertinent Parental Family History Reviewed: Yes Children Family History Reviewed: Yes Sibling(s) Family History Reviewed.: Yes Medication/Allergy Home Medications: Amlodipine Besylate [Norvasc 10 mg Tablet] 5 mg PO Q12 12/03/17 Aspirin [Ecotrin 81 mg EC Tablet] 81 mg PO DAILY 12/03/17 Baclofen [Baclofen 20 mg Tablet] 20 mg PO Q8 12/03/17 Butalb/Acetaminophen/Caffeine [Fdscux-Jebnkbzv-Whal 50-325-40] 1 tab PO Q6HP PRN 12/03/17 Citalopram Hydrobromide [Celexa 40 mg Tablet] 40 mg PO DAILY 12/03/17 Gabapentin [Neurontin] 600 mg PO Q8 12/03/17 Ginkgo Biloba 120 mg PO DAILY 12/03/17 Indomethacin [Indocin 25 mg Capsule] 50 mg PO BIDBS 12/03/17 Meclizine HCl [Antivert 25 mg Tablet] 25 mg PO Q8HP PRN 12/03/17 Metoprolol Tartrate [Lopressor 25 mg Tablet] 12.5 mg PO Q12 12/03/17 Multivitamin [Tab-A-Miranda (Multiple Vitamin) Tablet] 1 tab PO DAILY 12/03/17 Sumatriptan Succinate [Imitrex 100 mg Tablet] 50 mg PO PRN PRN 12/03/17 Allergies/Adverse Reactions: No Known Allergies Allergy (Verified 12/02/17 07:45) Review of Systems ROS unobtainable: Due to endotracheal tube Physical Exam Vital Signs: Temp Pulse Resp BP Pulse Ox 101.4 F H 96 18 103/57 L 94 12/15/17 06:00 12/15/17 06:00 12/15/17 07:20 12/15/17 06:00 12/15/17 06:00 Intake & Output 12/14/17 12/15/17 12/16/17 06:59 06:59 06:59 Intake Total 6204 Output Total 500 495 Balance -500 5709 Weight 78.3 kg Exam: GENERAL: well-nourished and in no acute distress. Patient is intubated and sedated. Orientation cannot be checked HEAD: Atraumatic, normocephalic. EYES: Pupils equal round and reactive to light, extraocular movements could not be checked, sclera anicteric, conjunctiva are normal. ENT: TMs normal, nares patent, oropharynx clear without exudates. Moist mucous membranes. No oral ulcerations or bleeding gums noted NECK: supple without lymphadenopathy or JVD. Trachea is central. No cervical or axillary lymphadenopathy noted. Carotids are 2+ LUNGS: Breath sounds mostly clear to auscultation patient is noted to have bibasal crackles. CHEST: Palpation of the chest wall shows no significant chest wall tenderness or abnormalities. 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 ABDOMEN: Soft, no significant tenderness appreciated, normoactive bowel sounds. No guarding, no rebound. No rigidity noted . No masses appreciated. EXTREMITIES: Pedal pulses are 1-2+, no calf tenderness noted, 1-2 + pedal edema noted. No clubbing or cyanosis. NEUROLOGICAL: The patient cannot participate in the neurological exam but no facial asymmetry noted. Extremities slightly hypotonic PSYCH: This cannot be evaluated. Patient cannot participate. SKIN: Patient noted to have bedsores. No significant rash noted. MUSCULOSKELETAL EXAM: No significant joint swelling noted. Patient cannot participate in musculoskeletal exam Results Laboratory Results: 12/15/17 06:45 12/15/17 05:40 12/14/17 12/14/17 12/14/17 14:57 17:20 19:45 WBC RBC Hgb Hct MCV MCH MCHC RDW Plt Count Seg Neutrophils % Lymphocytes % Monocytes % Eosinophils % Basophils % Absolute Neutrophils Absolute Lymphocytes Absolute Monocytes Absolute Eosinophils Absolute Basophils Carbonic Acid 1.07 0.65 L HCO3/H2CO3 Ratio 9:1 9:1 ABG pH 7.07 L* 7.08 L* ABG pCO2 35.6 21.7 L ABG pO2 68.2 L 150.1 H ABG HCO3 10.0 L 6.3 L ABG O2 Saturation 85.5 L 98.1 H ABG Base Excess -19.3 -21.9 VBG pH 7.11 L* VBG pCO2 35.2 VBG HCO3 11.0 L VBG Base Excess -17.2 FiO2 4L 70% Sodium Potassium Chloride Carbon Dioxide Anion Gap BUN Creatinine Est GFR ( Amer) Est GFR (Non-Af Amer) Glucose Lactic Acid Calcium Phosphorus Magnesium Urine Color Urine Appearance Urine pH Ur Specific [place] Urine Protein Urine Glucose (UA) Urine Ketones Urine Blood Urine Nitrite Ur Leukocyte Esterase Urine WBC (Auto) Urine RBC (Auto) 12/14/17 12/15/17 12/15/17 21:05 01:25 05:40 WBC RBC Hgb Hct MCV MCH MCHC RDW Plt Count Seg Neutrophils % Lymphocytes % Monocytes % Eosinophils % Basophils % Absolute Neutrophils Absolute Lymphocytes Absolute Monocytes Absolute Eosinophils Absolute Basophils Carbonic Acid 0.64 L HCO3/H2CO3 Ratio 11:1 ABG pH 7.14 L* ABG pCO2 21.3 L ABG pO2 147.0 H ABG HCO3 7.1 L ABG O2 Saturation 98.3 H ABG Base Excess -20.1 VBG pH VBG pCO2 VBG HCO3 VBG Base Excess FiO2 70% Sodium Potassium Chloride Carbon Dioxide Anion Gap BUN Creatinine Est GFR ( Amer) Est GFR (Non-Af Amer) Glucose Lactic Acid 8.9 H 13.0 H Calcium Phosphorus Magnesium Urine Color Urine Appearance Urine pH Ur Specific [place] Urine Protein Urine Glucose (UA) Urine Ketones Urine Blood Urine Nitrite Ur Leukocyte Esterase Urine WBC (Auto) Urine RBC (Auto) 12/15/17 12/15/17 12/15/17 05:40 05:40 06:45 WBC Cancelled 20.0 H RBC Cancelled 2.77 L Hgb Cancelled 7.8 L Hct Cancelled 25.3 L MCV Cancelled 92 D MCH Cancelled 28.2 MCHC Cancelled 30.8 L RDW Cancelled 19.7 H Plt Count Cancelled 80 L Seg Neutrophils % Cancelled Not Reportable Lymphocytes % Cancelled Not Reportable Monocytes % Cancelled Not Reportable Eosinophils % Cancelled Not Reportable Basophils % Cancelled Not Reportable Absolute Neutrophils Cancelled Not Reportable Absolute Lymphocytes Cancelled Not Reportable Absolute Monocytes Cancelled Not Reportable Absolute Eosinophils Cancelled Not Reportable Absolute Basophils Cancelled Not Reportable Carbonic Acid HCO3/H2CO3 Ratio ABG pH ABG pCO2 ABG pO2 ABG HCO3 ABG O2 Saturation ABG Base Excess VBG pH VBG pCO2 VBG HCO3 VBG Base Excess FiO2 Sodium 134.3 L Potassium 5.7 H D Chloride 107 Carbon Dioxide 8 L* Anion Gap 19 BUN 16 Creatinine 1.07 Est GFR ( Amer) > 60 Est GFR (Non-Af Amer) 52 L Glucose 612 H* Lactic Acid Calcium 6.0 L* Phosphorus 5.6 H Magnesium 1.4 L Urine Color Urine Appearance Urine pH Ur Specific [place] Urine Protein Urine Glucose (UA) Urine Ketones Urine Blood Urine Nitrite Ur Leukocyte Esterase Urine WBC (Auto) Urine RBC (Auto) 12/15/17 10:00 WBC RBC Hgb Hct MCV MCH MCHC RDW Plt Count Seg Neutrophils % Lymphocytes % Monocytes % Eosinophils % Basophils % Absolute Neutrophils Absolute Lymphocytes Absolute Monocytes Absolute Eosinophils Absolute Basophils Carbonic Acid HCO3/H2CO3 Ratio ABG pH ABG pCO2 ABG pO2 ABG HCO3 ABG O2 Saturation ABG Base Excess VBG pH VBG pCO2 VBG HCO3 VBG Base Excess FiO2 Sodium Potassium Chloride Carbon Dioxide Anion Gap BUN Creatinine Est GFR ( Amer) Est GFR (Non-Af Amer) Glucose Lactic Acid Calcium Phosphorus Magnesium Urine Color YELLOW Urine Appearance SLIGHTLY-CLOUDY Urine pH 5.0 Ur Specific Amity 1.014 Urine Protein 30 H Urine Glucose (UA) >=500 H Urine Ketones NEGATIVE Urine Blood LARGE H Urine Nitrite NEGATIVE Ur Leukocyte Esterase SMALL H Urine WBC (Auto) 18 Urine RBC (Auto) 5 12/15/17 05:40 CK-MB (CK-2) 12.50 H Troponin I 0.186 EKG Comments: Shows probable junctional tachycardia versus atrial fibrillation but no acute ST -T wave changes noted. Impressions: Head CT 12/13/17 22:25 IMPRESSION: No acute intracranial abnormality. Head CTA 12/13/17 22:25 IMPRESSION: Limitation due to motion artifact at the level of the mid cervical spine; consider repeat or surveillance CTA of the neck as clinically warranted. Else, unremarkable CTA of the head and neck. Neck CTA 12/13/17 22:25 IMPRESSION: Limitation due to motion artifact at the level of the mid cervical spine; consider repeat or surveillance CTA of the neck as clinically warranted. Else, unremarkable CTA of the head and neck. Chest X-Ray 12/15/17 06:00 IMPRESSION: 1. No significant interval change. Persistent cardiomegaly with pulmonary vascular congestion and small bilateral pleural effusions. Assessment & Plan - Diagnosis (1) Hypotension Qualifiers: Hypotension type: other hypotension type Qualified Code(s): I95.89 - Other hypotension Is this a current diagnosis for this admission?: Yes (2) Multiple sclerosis exacerbation Is this a current diagnosis for this admission?: Yes (3) Acute respiratory failure Qualifiers: Respiratory failure complication: unspecified whether with hypoxia or hypercapnia Qualified Code(s): J96.00 - Acute respiratory failure, unspecified whether with hypoxia or hypercapnia Is this a current diagnosis for this admission?: Yes (4) Aspiration pneumonia Qualifiers: Aspiration pneumonia type: unspecified Laterality: bilateral Lung location: unspecified part of lung Qualified Code(s): J69.0 - Pneumonitis due to inhalation of food and vomit Is this a current diagnosis for this admission?: Yes (5) Severe sepsis Is this a current diagnosis for this admission?: Yes (6) Elevated troponin I level Is this a current diagnosis for this admission?: Yes (7) Hyperglycemia Is this a current diagnosis for this admission?: Yes - Notes Notes: Severe sepsis: Patient on multiple antibiotics. Patient is on multiple pressors. Continue with stress dose of Solu-Medrol. Continue other supportive care. Overall prognosis poor, secondary to poor baseline status and also severe sepsis. Elevated troponin I: EKG is noted to have no acute ST-T wave changes. Most likely related to sepsis and from supply demand mismatch. Will repeat EKG and a stat echo to look for any wall motion abnormalities are new evolving EKG changes. Current EKG reviewed. Acute respiratory failure: Most likely related to sepsis, possible ARDS, possible CHF. Continue with artificial ventilation and endotracheal intubation as well as oxygenation. Aspiration pneumonia: Continue antibiotic therapy. Hyperglycemia: Recommend sliding scale glucose coverage. Multiple sclerosis: Patient has bedsores and also has been rather bedbound. She has poor general functional status. Overall prognosis is likely to be on the poor side. Discussed with Dr. Barajas. - Time Time Spent: 50 to 70 Minutes - CODE STATUS was discussed, patient remains full code. Surrogate decision-maker unchanged. Multiple medical problems were addressed. More than 50% of the time spent coordinating care, discussing management plans with involved caregivers. Management plans discussed with involved personnels. Medical decision making was of moderate to high complexity , patient's has multiple comorbidities. Medications reviewed and adjusted accordingly: Yes
[2017-12-15] MEDS: NA PHOS,M-B/NA PHOS,DI-BA (ADULT) 133 ML ENEMA PR SCH (11:30)
[2017-12-15 11:45] LABS: ARTERIAL BLOOD BASE EXCESS -21.2 mmol/L; ARTERIAL BLOOD HCO3 6.3 mmol/L (20-26); ARTERIAL BLOOD O2 SATURATION 97.3 % (94-98); ARTERIAL BLOOD PO2 123.6 mmHg (80-100); ARTERIAL BLOOD TOTAL CO2 6.9 mmol/L (21-25)
[2017-12-15 11:46] LABS: ARTERIAL BLOOD FIO2 65%
[2017-12-15 11:47] LABS: ARTERIAL BLOOD PCO2 19.9 mmHg (35-45); ARTERIAL BLOOD PH 7.12 (7.35-7.45)
--- NOTE | 2017-12-15 12:10 | PDOC PROGRESS REPORT ---
Subjective Progress Note for:: 12/15/17 Subjective:: intubated Reason For Visit: CVA SEPSIS UTI PNEUMONIA Physical Exam Vital Signs: Temp Pulse Resp BP Pulse Ox 101.4 F H 96 18 103/57 L 94 12/15/17 06:00 12/15/17 06:00 12/15/17 07:20 12/15/17 06:00 12/15/17 06:00 Intake & Output 12/14/17 12/15/17 12/16/17 06:59 06:59 06:59 Intake Total 6204 Output Total 500 495 Balance -500 5709 Weight 78.3 kg General appearance: PRESENT: no acute distress, disheveled, well-developed. ABSENT: cooperative Head exam: PRESENT: atraumatic, normocephalic Eye exam: PRESENT: conjunctiva pale. ABSENT: nystagmus, periorbital swelling, scleral icterus Mouth exam: PRESENT: dry mucosa, neck supple, tongue midline, other - Remains intubated Neck exam: ABSENT: carotid bruit, JVD, lymphadenopathy, thyromegaly, tracheal deviation, tracheostomy Respiratory exam: PRESENT: crackles, decreased breath sounds, prolonged expiratory phas, rhonchi, symmetrical, unlabored, wheezes. ABSENT: retraction, stridor, tachypnea Cardiovascular exam: PRESENT: RRR, +S1, +S2, tachycardia Pulses: PRESENT: normal radial pulses GI/Abdominal exam: PRESENT: diminished bowel sounds, soft Extremities exam: ABSENT: clubbing, joint swelling Musculoskeletal exam: ABSENT: ambulatory, deformity, dislocation Neurological exam: ABSENT: alert, awake, oriented to person Skin exam: PRESENT: dry Results Laboratory Results: 12/15/17 06:45 12/15/17 05:40 12/14/17 12/14/17 12/14/17 14:57 17:20 19:45 WBC RBC Hgb Hct MCV MCH MCHC RDW Plt Count Seg Neutrophils % Lymphocytes % Monocytes % Eosinophils % Basophils % Absolute Neutrophils Absolute Lymphocytes Absolute Monocytes Absolute Eosinophils Absolute Basophils Carbonic Acid 1.07 0.65 L HCO3/H2CO3 Ratio 9:1 9:1 ABG pH 7.07 L* 7.08 L* ABG pCO2 35.6 21.7 L ABG pO2 68.2 L 150.1 H ABG HCO3 10.0 L 6.3 L ABG O2 Saturation 85.5 L 98.1 H ABG Base Excess -19.3 -21.9 VBG pH 7.11 L* VBG pCO2 35.2 VBG HCO3 11.0 L VBG Base Excess -17.2 FiO2 4L 70% Sodium Potassium Chloride Carbon Dioxide Anion Gap BUN Creatinine Est GFR ( Amer) Est GFR (Non-Af Amer) Glucose Lactic Acid Calcium Phosphorus Magnesium 12/14/17 12/15/17 12/15/17 21:05 01:25 05:40 WBC RBC Hgb Hct MCV MCH MCHC RDW Plt Count Seg Neutrophils % Lymphocytes % Monocytes % Eosinophils % Basophils % Absolute Neutrophils Absolute Lymphocytes Absolute Monocytes Absolute Eosinophils Absolute Basophils Carbonic Acid 0.64 L HCO3/H2CO3 Ratio 11:1 ABG pH 7.14 L* ABG pCO2 21.3 L ABG pO2 147.0 H ABG HCO3 7.1 L ABG O2 Saturation 98.3 H ABG Base Excess -20.1 VBG pH VBG pCO2 VBG HCO3 VBG Base Excess FiO2 70% Sodium Potassium Chloride Carbon Dioxide Anion Gap BUN Creatinine Est GFR ( Amer) Est GFR (Non-Af Amer) Glucose Lactic Acid 8.9 H 13.0 H Calcium Phosphorus Magnesium 12/15/17 12/15/17 12/15/17 05:40 05:40 06:45 WBC Cancelled 20.0 H RBC Cancelled 2.77 L Hgb Cancelled 7.8 L Hct Cancelled 25.3 L MCV Cancelled 92 D MCH Cancelled 28.2 MCHC Cancelled 30.8 L RDW Cancelled 19.7 H Plt Count Cancelled 80 L Seg Neutrophils % Cancelled Not Reportable Lymphocytes % Cancelled Not Reportable Monocytes % Cancelled Not Reportable Eosinophils % Cancelled Not Reportable Basophils % Cancelled Not Reportable Absolute Neutrophils Cancelled Not Reportable Absolute Lymphocytes Cancelled Not Reportable Absolute Monocytes Cancelled Not Reportable Absolute Eosinophils Cancelled Not Reportable Absolute Basophils Cancelled Not Reportable Carbonic Acid HCO3/H2CO3 Ratio ABG pH ABG pCO2 ABG pO2 ABG HCO3 ABG O2 Saturation ABG Base Excess VBG pH VBG pCO2 VBG HCO3 VBG Base Excess FiO2 Sodium 134.3 L Potassium 5.7 H D Chloride 107 Carbon Dioxide 8 L* Anion Gap 19 BUN 16 Creatinine 1.07 Est GFR ( Amer) > 60 Est GFR (Non-Af Amer) 52 L Glucose 612 H* Lactic Acid Calcium 6.0 L* Phosphorus 5.6 H Magnesium 1.4 L 12/15/17 05:40 CK-MB (CK-2) 12.50 H Troponin I 0.186 Impressions: Head CT 12/13/17 22:25 IMPRESSION: No acute intracranial abnormality. Head CTA 12/13/17 22:25 IMPRESSION: Limitation due to motion artifact at the level of the mid cervical spine; consider repeat or surveillance CTA of the neck as clinically warranted. Else, unremarkable CTA of the head and neck. Neck CTA 12/13/17 22:25 IMPRESSION: Limitation due to motion artifact at the level of the mid cervical spine; consider repeat or surveillance CTA of the neck as clinically warranted. Else, unremarkable CTA of the head and neck. Chest X-Ray 12/15/17 06:00 IMPRESSION: 1. No significant interval change. Persistent cardiomegaly with pulmonary vascular congestion and small bilateral pleural effusions. Assessment & Plan - Diagnosis (1) Acute respiratory failure Qualifiers: Respiratory failure complication: unspecified whether with hypoxia or hypercapnia Qualified Code(s): J96.00 - Acute respiratory failure, unspecified whether with hypoxia or hypercapnia Is this a current diagnosis for this admission?: Yes Plan: compensaste for acidosis Labs- All tests 24 hr 12/14/17 12/14/17 12/15/17 14:57 19:45 05:40 ABG pH 7.07 L* 7.08 L* 7.14 L* ABG pCO2 35.6 21.7 L 21.3 L ABG pO2 68.2 L 150.1 H 147.0 H FiO2 4L 70% 12/15/17 11:25 ABG pH 7.12 L* ABG pCO2 ABG pO2 123.6 H FiO2 65% Labs- All tests 24 hr 12/13/17 12/14/17 12/14/17 22:24 05:50 19:45 FiO2 70% Carbon Dioxide 18 L 13 L 12/15/17 05:40 FiO2 Carbon Dioxide 8 L* (2) Aspiration pneumonia Qualifiers: Aspiration pneumonia type: unspecified Laterality: bilateral Lung location: unspecified part of lung Qualified Code(s): J69.0 - Pneumonitis due to inhalation of food and vomit Is this a current diagnosis for this admission?: Yes Plan: gstric content in ET tube (3) Severe sepsis Is this a current diagnosis for this admission?: Yes Plan: 3 pressors Labs- All tests 24 hr 12/13/17 12/14/17 12/15/17 22:24 05:50 06:45 WBC 5.9 12.3 H D 20.0 H Band Neutrophils % 21 H 14 H (4) Multiple sclerosis Is this a current diagnosis for this admission?: Yes
--- NOTE | 2017-12-15 12:12 | PDOC PROGRESS REPORT ---
Subjective Progress Note for:: 12/15/17 Subjective:: Patient remains intubated and followed by Dr. Harp of pulmonology. She remains hypotensive in spite of aggressive IV fluids. She was on 3 pressors by this morning, including levophed, vasopressin, Jose L-Synephrine, but we have not been able to titrate off vasopressin with systolic blood pressure in the 90s. Blood cultures are growing gram-negative bacilli. Patient also metabolic acidosis and now on bicarb drip. Family including and children at bedside. Reason For Visit: CVA SEPSIS UTI PNEUMONIA Physical Exam Vital Signs: Temp Pulse Resp BP Pulse Ox 101.4 F H 96 18 103/57 L 94 12/15/17 06:00 12/15/17 06:00 12/15/17 07:20 12/15/17 06:00 12/15/17 06:00 Intake & Output 12/14/17 12/15/17 12/16/17 06:59 06:59 06:59 Intake Total 6204 Output Total 500 495 Balance -500 5709 Weight 78.3 kg GEN: NAD, intubated, unresponsive CV: RRR, NL S1S2 LUNGS:Bilateral crackles ABDOMEN Soft, NT, +BS EXTERMITIES: No e/c/c NEURO: Unresponsive Results Laboratory Results: 12/15/17 06:45 12/15/17 05:40 12/14/17 12/14/17 12/14/17 14:57 17:20 19:45 WBC RBC Hgb Hct MCV MCH MCHC RDW Plt Count Seg Neutrophils % Lymphocytes % Monocytes % Eosinophils % Basophils % Absolute Neutrophils Absolute Lymphocytes Absolute Monocytes Absolute Eosinophils Absolute Basophils Carbonic Acid 1.07 0.65 L HCO3/H2CO3 Ratio 9:1 9:1 ABG pH 7.07 L* 7.08 L* ABG pCO2 35.6 21.7 L ABG pO2 68.2 L 150.1 H ABG HCO3 10.0 L 6.3 L ABG O2 Saturation 85.5 L 98.1 H ABG Base Excess -19.3 -21.9 VBG pH 7.11 L* VBG pCO2 35.2 VBG HCO3 11.0 L VBG Base Excess -17.2 FiO2 4L 70% Sodium Potassium Chloride Carbon Dioxide Anion Gap BUN Creatinine Est GFR ( Amer) Est GFR (Non-Af Amer) Glucose Lactic Acid Calcium Phosphorus Magnesium Urine Color Urine Appearance Urine pH Ur Specific Mason Urine Protein Urine Glucose (UA) Urine Ketones Urine Blood Urine Nitrite Ur Leukocyte Esterase Urine WBC (Auto) Urine RBC (Auto) 12/14/17 12/15/17 12/15/17 21:05 01:25 05:40 WBC RBC Hgb Hct MCV MCH MCHC RDW Plt Count Seg Neutrophils % Lymphocytes % Monocytes % Eosinophils % Basophils % Absolute Neutrophils Absolute Lymphocytes Absolute Monocytes Absolute Eosinophils Absolute Basophils Carbonic Acid 0.64 L HCO3/H2CO3 Ratio 11:1 ABG pH 7.14 L* ABG pCO2 21.3 L ABG pO2 147.0 H ABG HCO3 7.1 L ABG O2 Saturation 98.3 H ABG Base Excess -20.1 VBG pH VBG pCO2 VBG HCO3 VBG Base Excess FiO2 70% Sodium Potassium Chloride Carbon Dioxide Anion Gap BUN Creatinine Est GFR ( Amer) Est GFR (Non-Af Amer) Glucose Lactic Acid 8.9 H 13.0 H Calcium Phosphorus Magnesium Urine Color Urine Appearance Urine pH Ur Specific Mason Urine Protein Urine Glucose (UA) Urine Ketones Urine Blood Urine Nitrite Ur Leukocyte Esterase Urine WBC (Auto) Urine RBC (Auto) 12/15/17 12/15/17 12/15/17 05:40 05:40 06:45 WBC Cancelled 20.0 H RBC Cancelled 2.77 L Hgb Cancelled 7.8 L Hct Cancelled 25.3 L MCV Cancelled 92 D MCH Cancelled 28.2 MCHC Cancelled 30.8 L RDW Cancelled 19.7 H Plt Count Cancelled 80 L Seg Neutrophils % Cancelled Not Reportable Lymphocytes % Cancelled Not Reportable Monocytes % Cancelled Not Reportable Eosinophils % Cancelled Not Reportable Basophils % Cancelled Not Reportable Absolute Neutrophils Cancelled Not Reportable Absolute Lymphocytes Cancelled Not Reportable Absolute Monocytes Cancelled Not Reportable Absolute Eosinophils Cancelled Not Reportable Absolute Basophils Cancelled Not Reportable Carbonic Acid HCO3/H2CO3 Ratio ABG pH ABG pCO2 ABG pO2 ABG HCO3 ABG O2 Saturation ABG Base Excess VBG pH VBG pCO2 VBG HCO3 VBG Base Excess FiO2 Sodium 134.3 L Potassium 5.7 H D Chloride 107 Carbon Dioxide 8 L* Anion Gap 19 BUN 16 Creatinine 1.07 Est GFR ( Amer) > 60 Est GFR (Non-Af Amer) 52 L Glucose 612 H* Lactic Acid Calcium 6.0 L* Phosphorus 5.6 H Magnesium 1.4 L Urine Color Urine Appearance Urine pH Ur Specific Mason Urine Protein Urine Glucose (UA) Urine Ketones Urine Blood Urine Nitrite Ur Leukocyte Esterase Urine WBC (Auto) Urine RBC (Auto) 12/15/17 10:00 WBC RBC Hgb Hct MCV MCH MCHC RDW Plt Count Seg Neutrophils % Lymphocytes % Monocytes % Eosinophils % Basophils % Absolute Neutrophils Absolute Lymphocytes Absolute Monocytes Absolute Eosinophils Absolute Basophils Carbonic Acid HCO3/H2CO3 Ratio ABG pH ABG pCO2 ABG pO2 ABG HCO3 ABG O2 Saturation ABG Base Excess VBG pH VBG pCO2 VBG HCO3 VBG Base Excess FiO2 Sodium Potassium Chloride Carbon Dioxide Anion Gap BUN Creatinine Est GFR ( Amer) Est GFR (Non-Af Amer) Glucose Lactic Acid Calcium Phosphorus Magnesium Urine Color YELLOW Urine Appearance SLIGHTLY-CLOUDY Urine pH 5.0 Ur Specific Mason 1.014 Urine Protein 30 H Urine Glucose (UA) >=500 H Urine Ketones NEGATIVE Urine Blood LARGE H Urine Nitrite NEGATIVE Ur Leukocyte Esterase SMALL H Urine WBC (Auto) 18 Urine RBC (Auto) 5 12/15/17 05:40 CK-MB (CK-2) 12.50 H Troponin I 0.186 Impressions: Head CT 12/13/17 22:25 IMPRESSION: No acute intracranial abnormality. Head CTA 12/13/17 22:25 IMPRESSION: Limitation due to motion artifact at the level of the mid cervical spine; consider repeat or surveillance CTA of the neck as clinically warranted. Else, unremarkable CTA of the head and neck. Neck CTA 12/13/17 22:25 IMPRESSION: Limitation due to motion artifact at the level of the mid cervical spine; consider repeat or surveillance CTA of the neck as clinically warranted. Else, unremarkable CTA of the head and neck. Chest X-Ray 12/15/17 06:00 IMPRESSION: 1. No significant interval change. Persistent cardiomegaly with pulmonary vascular congestion and small bilateral pleural effusions. Assessment & Plan - Diagnosis (1) Acute respiratory failure Qualifiers: Respiratory failure complication: hypoxia Qualified Code(s): J96.01 - Acute respiratory failure with hypoxia Is this a current diagnosis for this admission?: Yes Plan: Likely secondary to aspiration pneumonia. Blood culture growing gram-negative bacteremia. Continue vent management. Prognosis guarded. Discussed with family and they verbalized understanding. (2) Severe sepsis Is this a current diagnosis for this admission?: Yes Plan: Likely multifactorial, including aspiration pneumonia and UTI. Blood culture growing gram-negative bacteremia. Continue pressors and wean down as tolerated. We will continue IV fluid aggressively. Patient remains on broad-spectrum antibiotics. I see that Dr. Harp has added imipenem and fluconazole to patient's antibiotics regimen. We will also continue vancomycin and Levaquin, along with those antibiotics. However will discontinue Zosyn as likely not adding much else. Will continue cefepime for now for double coverage of possible Pseudomonas, given patient's history of present localization, both consider de-escalating antibiotics pending culture results identification and sensitivities. (3) Aspiration pneumonia Qualifiers: Aspiration pneumonia type: unspecified Laterality: bilateral Lung location: unspecified part of lung Qualified Code(s): J69.0 - Pneumonitis due to inhalation of food and vomit Is this a current diagnosis for this admission?: Yes Plan: As in acute respiratory failure and sepsis above. (4) Urinary tract infection Is this a current diagnosis for this admission?: Yes Plan: Aspirin sepsis above. Follow culture results. - Plan Summary Plan Summary: Metabolic acidosis: Continue bicarb drip for metabolic acidosis and management of underlying sepsis with IV fluid, antibiotics, and supportive care as previously discussed. Anemia: 2 units packed red blood cells by Dr. Harp. Follow-up CBC in a.m. Critical care time spent 45 minutes.
--- NOTE | 2017-12-15 13:27 | XCELERA REPORT ---
[address] [address] Transthoracic Echocardiogram Report Name: COOKIE ARCHIBALD Age: 62 yrs Gender: Female : 1955 Patient Status: Inpatient Patient Location: ICU^2A Study Date: 12/15/2017 11:19 AM Height: 65 in Weight: 172 lb BSA: 1.9 m2 Procedure: A complete two-dimensional transthoracic echocardiogram was performed (2D, M-mode, spectral and color flow Doppler). The study was technically adequate with some images being suboptimal in quality. Reason For Study: Hypotension Ordering Physician: ELHAM HAN Performed By: Stephanie Jasso Interpretation Summary The left ventricular ejection fraction is normal. There is borderline concentric left ventricular hypertrophy. The left ventricle is grossly normal size. LV diastolic function could not be adequately assessed. Wall motion cannot be accurately commented on, but no definite regional wall motion abnormalities noted. The right ventricular systolic function is normal. The right atrium is normal. The left atrial size is normal. There is a trace amount of mitral regurgitation There is no mitral valve stenosis. There is no aortic valve stenosis No aortic regurgitation is present. There is a trace to mild amount of tricuspid regurgitation There is mild to moderate pulmonary hypertension by echo Right ventricular systolic pressure is estimated to be elevated at 40- 50mmHg. The aortic root is not well visualized but is probably normal size. The inferior vena cava appeared normal and decreased < 50% with respiration (RAP 10-15 mmHg) Minimal pericardial effusion. MMode/2D Measurements & Calculations RVDd: 2.5 cm LVIDd: 4.1 cm FS: 36.4 % Ao root diam: 3.3 cm IVSd: 1.1 cm LVIDs: 2.6 cm EDV(Teich): 72.4 ml LVPWd: 1.0 cm ESV(Teich): 24.1 ml Ao root area: 8.3 cm2 EF(Teich): 66.7 % Doppler Measurements & Calculations MV E max juan j: MV dec slope: Ao V2 max: LV V1 max P.3 cm/sec 181.5 cm/sec 8.0 mmHg MV A max juan j: 987.3 cm/sec2 Ao max PG: LV V1 max: 31.1 cm/sec MV dec time: 13.2 mmHg 141.6 cm/sec MV E/A: 5.2 0.16 sec PA V2 max: PI end-d juan j: TR max juan j: 145.1 cm/sec 193.4 cm/sec 298.6 cm/sec PA max P.4 mmHg TR max P.7 mmHg Left Ventricle The left ventricle is grossly normal size. There is borderline concentric left ventricular hypertrophy. The left ventricular ejection fraction is normal. LV diastolic function could not be adequately assessed. Wall motion cannot be accurately commented on, but no definite regional wall motion abnormalities noted. Right Ventricle Borderline right ventricular enlargement. There is normal right ventricular wall thickness. The right ventricular systolic function is normal. Atria The right atrium is normal. The left atrial size is normal. Interarterial septum not well visualized and not well dopplered. Cannot comment on ASD/PFO presence. Mitral Valve The mitral valve is grossly normal. There is no mitral valve stenosis. There is a trace amount of mitral regurgitation. Aortic Valve The aortic valve is grossly normal. There is no aortic valve stenosis. No aortic regurgitation is present. Tricuspid Valve The tricuspid valve is not well visualized, but is grossly normal. There is no tricuspid stenosis. There is a trace to mild amount of tricuspid regurgitation. There is mild to moderate pulmonary hypertension by echo. Right ventricular systolic pressure is estimated to be elevated at 40- 50mmHg. Pulmonic Valve The pulmonic valve is not well visualized. Great Vessels The aortic root is not well visualized but is probably normal size. The inferior vena cava appeared normal and decreased < 50% with respiration (RAP 10-15 mmHg). Effusions Minimal pericardial effusion. : ELHAM HAN > Elham Han
[2017-12-15 15:22] LABS: BLOOD UREA NITROGEN 17 mg/dL (7-20); CHLORIDE 99 mmol/L (98-107); POTASSIUM 5.4 mmol/L (3.6-5.0)
[2017-12-15 15:40] LABS: SODIUM 126.3 mmol/L (137-145)
[2017-12-15 15:43] LABS: ANION GAP 20 (5-19)
[2017-12-15 15:45] LABS: CALCIUM 6.2 mg/dL (8.4-10.2); GLUCOSE 646 mg/dL (75-110)
[2017-12-15 15:46] LABS: CARBON DIOXIDE 7 mmol/L (22-30)
[2017-12-15 16:19] LABS: FIBRINOGEN 173 mg/dL (209-497)
[2017-12-15] MEDS: NORMAL SALINE 100 ML with INSULIN REGULAR, HUMAN 100 UNIT IV PRN ×2 (17:16)
[2017-12-15 17:19] LABS: D-DIMER > 20.00 ug/mL (0.00-0.50)
[2017-12-15] MEDS ORDERED: FUROSEMIDE INJ/PF 20 MG/2 ML SDV IV PRN (17:42)
[2017-12-15] MEDS ORDERED: PHENYLEPHRINE HCL INJ/PF 10 MG/1 ML SDV ONE (20:22)
[2017-12-15 20:49] LABS: ANION GAP 15 (5-19); BLOOD UREA NITROGEN 16 mg/dL (7-20); CHLORIDE 103 mmol/L (98-107); POTASSIUM 5.4 mmol/L (3.6-5.0); SODIUM 123.7 mmol/L (137-145)
[2017-12-15 21:22] LABS: CALCIUM 5.7 mg/dL (8.4-10.2); CARBON DIOXIDE 6 mmol/L (22-30); GLUCOSE 571 mg/dL (75-110)
--- NOTE | 2017-12-15 21:26 | EKG REPORT ---
SEVERITY:- ABNORMAL ECG - ACCELERATED JUNCTIONAL RHYTHM BORDERLINE PROLONGED QT INTERVAL : Confirmed by: Elham Ramirez 15-Dec-2017 21:25:02
[2017-12-15 21:51] LABS: ARTERIAL BLOOD H2CO3 0.56 mmol/L (1.05-1.35); ARTERIAL BLOOD HCO3 5.3 mmol/L (20-26); ARTERIAL BLOOD O2 SATURATION 94.9 % (94-98); ARTERIAL BLOOD PO2 99.4 mmHg (80-100); ARTERIAL BLOOD TOTAL CO2 5.9 mmol/L (21-25)
[2017-12-15] MEDS: LEVOFLOXACIN 750 MG/D5W RTU 750 MG/150 ML RTUPB IV SCH (21:54)
[2017-12-15 21:58] LABS: ARTERIAL BLOOD FIO2 60%; ARTERIAL BLOOD PCO2 18.7 mmHg (35-45); ARTERIAL BLOOD PH 7.07 (7.35-7.45)
[2017-12-15] MEDS: FLUCONAZOLE 100 MG TABLET NG SCH (21:59)
[2017-12-16 00:19] LABS: ARTERIAL BLOOD BASE EXCESS -17.9 mmol/L; ARTERIAL BLOOD H2CO3 0.72 mmol/L (1.05-1.35); ARTERIAL BLOOD HCO3 8.8 mmol/L (20-26); ARTERIAL BLOOD O2 SATURATION 93.5 % (94-98); ARTERIAL BLOOD PCO2 23.8 mmHg (35-45); ARTERIAL BLOOD PO2 81.2 mmHg (80-100); ARTERIAL BLOOD TOTAL CO2 9.5 mmol/L (21-25)
[2017-12-16 00:22] LABS: ARTERIAL BLOOD FIO2 60%
[2017-12-16 00:25] LABS: ARTERIAL BLOOD PH 7.18 (7.35-7.45)
[2017-12-16 00:27] LABS: HEMATOCRIT 31.6 % (36.0-47.0); MEAN CORPUSCULAR HEMOGLOBIN 28.2 pg (27.0-33.4); MEAN CORPUSCULAR HGB CONC 31.7 g/dL (32.0-36.0); MEAN CORPUSCULAR VOLUME 89 fl (80-97); RED BLOOD COUNT 3.55 10^6/uL (3.72-5.28); RED CELL DISTRIBUTION WIDTH 19.1 % (11.5-14.0); WHITE BLOOD COUNT 19.9 10^3/uL (4.0-10.5)
[2017-12-16] MEDS: DEXTROSE 5%-WATER 250 ML with NOREPINEPHRINE BITARTRATE 4 MG IV PRN ×2 (00:31)
[2017-12-16] MEDS: DEXTROSE 5%-WATER 250 ML with VASOPRESSIN 100 UNIT IV PRN ×2 (00:31)
[2017-12-16] MEDS: DEXTROSE 5%-WATER 250 ML with PHENYLEPHRINE HCL 40 MG IV PRN ×2 (00:32)
[2017-12-16 00:39] LABS: ANION GAP 14 (5-19); BLOOD UREA NITROGEN 18 mg/dL (7-20); CHLORIDE 102 mmol/L (98-107); POTASSIUM 4.8 mmol/L (3.6-5.0); SODIUM 125.4 mmol/L (137-145)
[2017-12-16 00:59] LABS: CALCIUM 5.8 mg/dL (8.4-10.2); GLUCOSE 586 mg/dL (75-110)
[2017-12-16 01:00] LABS: CARBON DIOXIDE 9 mmol/L (22-30)
[2017-12-16 01:09] LABS: ABSOLUTE LYMPHOCYTES# (MANUAL) 1.8 10^3/uL (0.5-4.7); ABSOLUTE MONOCYTES # (MANUAL) 0.4 10^3/uL (0.1-1.4); ABSOLUTE NEUTROPHILS# (MANUAL) 17.7 10^3/uL (1.7-8.2); ANISOCYTOSIS 2+; BAND NEUTROPHILS % (MANUAL) 8 % (3-5); BASOPHILS % (MANUAL) 0 % (0-2); BURR CELLS 1+; EOSINOPHILS % (MANUAL) 0 % (0-6); LYMPHOCYTES % (MANUAL) 9 % (13-45); METAMYELOCYTES % (MANUAL) 3 % (0); MONOCYTES % (MANUAL) 2 % (3-13); NUCLEATED RED BLOOD CELLS 1 /100 WBC (0); OVALOCYTES SLIGHT; PLATELET COMMENT DECREASED; POIKILOCYTOSIS 1+; SCHISTOCYTES SLIGHT; SEGMENTED NEUTROPHILS % (MAN) 78 % (42-78); TEAR DROP CELLS SLIGHT; TOTAL CELLS COUNTED 100; TOXIC GRANULATION 1+
[2017-12-16 01:10] LABS: PLATELET COUNT 48 10^3/uL (150-450)
[2017-12-16] MEDS ORDERED: NORMAL SALINE 1000 ML 1,000 ML IV PRN (01:26)
[2017-12-16] MEDS ORDERED: CALCIUM GLUCONATE 1,000 MG in DEXTROSE 5%-WATER 50 ML IV ONE (01:30)
[2017-12-16] MEDS ORDERED: CALCIUM GLUCONATE 1000 MG/10 ML INJ IV ONE (01:41)
[2017-12-16] MEDS: MIDAZOLAM HCL 50 MG/100 ML RTUINJ IV PRN (01:47)
[2017-12-16] MEDS: NORMAL SALINE 1000 ML 1,000 ML IV PRN ×2 (01:47→13:54)
[2017-12-16] MEDS: IPRATROPIUM/ALBUTEROL 0.5-2.5 MG/3 ML AMPUL NEB SCH ×4 (02:09→20:17)
[2017-12-16] MEDS ORDERED: NORMAL SALINE 250 ML with VASOPRESSIN 100 UNIT IV PRN ×2 (02:35)
[2017-12-16] MEDS ORDERED: PHENYLEPHRINE HCL INJ/PF 10 MG/1 ML SDV ONE ×2 (02:41→06:05)
[2017-12-16] MEDS ORDERED: NOREPINEPHRINE BITARTRATE INJ/PF 4 MG/4 ML SDV IV ONE ×3 (02:42→20:11)
[2017-12-16] MEDS ORDERED: VASOPRESSIN INJ 20 UNIT/1 ML VIAL ONE ×2 (02:43→20:11)
[2017-12-16] MEDS ORDERED: INSULIN LISPRO 100 UNIT/ML 3 ML VIAL SUBCUT ONE ×2 (02:45→06:00)
[2017-12-16] MEDS: NORMAL SALINE 250 ML with NOREPINEPHRINE BITARTRATE 4 MG IV PRN ×8 (02:50→17:15)
[2017-12-16] MEDS: NORMAL SALINE 250 ML with PHENYLEPHRINE HCL 40 MG IV PRN ×12 (02:51→17:19)
[2017-12-16] MEDS: NORMAL SALINE 100 ML with INSULIN REGULAR, HUMAN 100 UNIT IV PRN ×6 (03:28→13:46)
[2017-12-16 04:33] LABS: ARTERIAL BLOOD BASE EXCESS -16.9 mmol/L; ARTERIAL BLOOD H2CO3 0.72 mmol/L (1.05-1.35); ARTERIAL BLOOD HCO3 9.3 mmol/L (20-26); ARTERIAL BLOOD O2 SATURATION 93.6 % (94-98); ARTERIAL BLOOD PCO2 23.8 mmHg (35-45); ARTERIAL BLOOD PH 7.21 (7.35-7.45); ARTERIAL BLOOD PO2 79.6 mmHg (80-100)
[2017-12-16 04:34] LABS: ARTERIAL BLOOD FIO2 65%
[2017-12-16 04:49] LABS: ALBUMIN 1.3 g/dL (3.5-5.0); ALKALINE PHOSPHATASE 125 U/L (38-126); ANION GAP 17 (5-19); BILIRUBIN,DIRECT 1.8 mg/dL (0.0-0.4); BILIRUBIN,TOTAL 1.8 mg/dL (0.2-1.3); BLOOD UREA NITROGEN 20 mg/dL (7-20); CHLORIDE 97 mmol/L (98-107); POTASSIUM 4.8 mmol/L (3.6-5.0); SODIUM 123.1 mmol/L (137-145); TOTAL PROTEIN 3.1 g/dL (6.3-8.2)
[2017-12-16 05:02] LABS: PARTIAL THROMBOPLASTIN TIME 48.4 SEC (23.5-35.8); PROTHROMBIN TIME 30.9 SEC (11.4-15.4)
[2017-12-16 05:15] LABS: ALANINE AMINOTRANSFERASE 1679 U/L (9-52)
[2017-12-16 05:16] LABS: ASPARTATE AMINO TRANSFERASE 3425 U/L (14-36); CALCIUM 6.1 mg/dL (8.4-10.2); CARBON DIOXIDE 9 mmol/L (22-30); GLUCOSE 554 mg/dL (75-110); HEMATOCRIT 32.4 % (36.0-47.0); HEMOGLOBIN 10.5 g/dL (12.0-15.5); MEAN CORPUSCULAR HEMOGLOBIN 28.4 pg (27.0-33.4); MEAN CORPUSCULAR HGB CONC 32.5 g/dL (32.0-36.0); MEAN CORPUSCULAR VOLUME 87 fl (80-97); RED CELL DISTRIBUTION WIDTH 19.3 % (11.5-14.0); WHITE BLOOD COUNT 19.9 10^3/uL (4.0-10.5)
[2017-12-16 05:22] LABS: ABSOLUTE LYMPHOCYTES# (MANUAL) 2.4 10^3/uL (0.5-4.7); ABSOLUTE MONOCYTES # (MANUAL) 1.6 10^3/uL (0.1-1.4); ABSOLUTE NEUTROPHILS# (MANUAL) 15.9 10^3/uL (1.7-8.2); BAND NEUTROPHILS % (MANUAL) 13 % (3-5); BASOPHILS % (MANUAL) 0 % (0-2); EOSINOPHILS % (MANUAL) 0 % (0-6); LYMPHOCYTES % (MANUAL) 12 % (13-45); METAMYELOCYTES % (MANUAL) 1 % (0); MONOCYTES % (MANUAL) 8 % (3-13); SEGMENTED NEUTROPHILS % (MAN) 66 % (42-78); TOTAL CELLS COUNTED 100
[2017-12-16 05:25] LABS: ANISOCYTOSIS 2+; BURR CELLS 2+; OVALOCYTES SLIGHT; PLATELET COMMENT DECREASED; POIKILOCYTOSIS 1+; POLYCHROMASIA SLIGHT; SCHISTOCYTES SLIGHT; TOXIC GRANULATION 1+; TOXIC VACUOLATION PRESENT
[2017-12-16 05:26] LABS: PLATELET COUNT 46 10^3/uL (150-450)
[2017-12-16] MEDS: IMIPENEM/CILASTATIN SODIUM 500 MG in NORMAL SALINE 100 ML IV SCH ×2 (05:57→15:22)
[2017-12-16] MEDS: PANTOPRAZOLE SODIUM 40 MG VIAL IV SCH (05:58)
[2017-12-16] MEDS: HEPARIN SOD (PORCINE) 5,000 UNIT/ML 1 ML SYRINGE SUBCUT SCH ×2 (06:01→15:24)
--- NOTE | 2017-12-16 06:50 | RADIOLOGY REPORT (SQ) ---
EXAM DESCRIPTION: CHEST SINGLE VIEW CLINICAL HISTORY: pna COMPARISON: 12/15/2017 FINDINGS: Single frontal view of the chest. Endotracheal tube at the level of the clavicles. NG tube with tip below the diaphragm. Right IJ central venous catheter with tip in the right atrium. Cardiomegaly. Pulmonary vascular congestion with interstitial edema. Significant interval increase in airspace opacities and likely now moderate pleural effusions. No pneumothorax identified. Leads overlie the chest. No acute osseous abnormalities. Upper abdominal soft tissues are unremarkable. IMPRESSION: 1. Significant interval increase in bilateral airspace opacities with likely now moderate bilateral pleural effusions.
[2017-12-16 09:09] LABS: LIPASE 1356.5 U/L (23-300)
--- NOTE | 2017-12-16 09:27 | RADIOLOGY REPORT (SQ) ---
EXAM DESCRIPTION: ABDOMEN 2 VIEWS COMPLETED DATE/TIME: 12/16/2017 9:03 am REASON FOR STUDY: abd distension./sepsis COMPARISON: 10/10/2015. NUMBER OF VIEWS: Two views. TECHNIQUE: Supine and erect/decubitus radiographic images of the abdomen acquired. LIMITATIONS: None. FINDINGS: FREE AIR: None. No abnormal gas collections. LUNG BASES: Clear. BOWEL GAS PATTERN: Paucity of bowel gas. Nonobstructive pattern. No dilated loops or air fluid level s. CALCIFICATIONS: No suspicious calcifications. SOFT TISSUES: No gross mass or suggestion of organomegaly. HARDWARE: Nasogastric tube with the tip in the stomach. BONES: No acute fracture. No worrisome bone lesions. OTHER: No other significant finding. IMPRESSION: PAUCITY OF BOWEL GAS. NASOGASTRIC TUBE WITH THE TIP IN THE STOMACH. NO RADIOGRAPHIC EV IDENCE FOR ACUTE ABDOMINAL DISEASE. TECHNICAL DOCUMENTATION: JOB ID: [id number] [employer]- All Rights Reserved Reading location - IP/workstation name: [email or web address]
[2017-12-16] MEDS ORDERED: FUROSEMIDE INJ/PF 40 MG/4 ML SDV IV PRN (09:53)
[2017-12-16] MEDS ORDERED: SODIUM BICARBONATE 8.4% INJ 50 MEQ/50 ML DISP.SYRIN IV ONE (09:55)
[2017-12-16 09:58] LABS: ANION GAP 16 (5-19); BLOOD UREA NITROGEN 20 mg/dL (7-20); CARBON DIOXIDE 12 mmol/L (22-30); CHLORIDE 98 mmol/L (98-107); POTASSIUM 4.4 mmol/L (3.6-5.0); SODIUM 126.4 mmol/L (137-145)
[2017-12-16 10:02] LABS: VANCOMYCIN,TROUGH 30.2 ug/mL (5.0-20.0)
[2017-12-16 10:08] LABS: CALCIUM 5.9 mg/dL (8.4-10.2)
[2017-12-16 10:09] LABS: GLUCOSE 408 mg/dL (75-110)
[2017-12-16] MEDS ORDERED: HYDROCORTISONE SOD SUCCINATE INJ/PF 100 MG/2 ML SDV IV ONE (10:15)
[2017-12-16] MEDS: FLUTICASONE NASAL SPRAY 50 MCG/SPRY 120 SPRAY/16 GM NASL SCH (10:31)
[2017-12-16] MEDS: NA PHOS,M-B/NA PHOS,DI-BA (ADULT) 133 ML ENEMA PR SCH (10:31)
[2017-12-16] MEDS: ASPIRIN 81 MG TABLET, CHEWABLE PO SCH (10:31)
[2017-12-16] MEDS: ALBUMIN HUMAN 50 ML IV SCH ×4 (11:00→16:54)
[2017-12-16 11:09] LABS: ARTERIAL BLOOD BASE EXCESS -14.8 mmol/L; ARTERIAL BLOOD H2CO3 0.92 mmol/L (1.05-1.35); ARTERIAL BLOOD HCO3 11.9 mmol/L (20-26); ARTERIAL BLOOD PCO2 30.6 mmHg (35-45); ARTERIAL BLOOD PH 7.21 (7.35-7.45); ARTERIAL BLOOD PO2 63.7 mmHg (80-100); ARTERIAL BLOOD TOTAL CO2 12.8 mmol/L (21-25)
[2017-12-16 11:11] LABS: ARTERIAL BLOOD FIO2 70%
[2017-12-16] MEDS: HYDROCORTISONE SOD SUCCINATE INJ/PF 100 MG/2 ML SDV IV SCH ×2 (12:22→17:17)
[2017-12-16] MEDS: SODIUM BICARBONATE 8.4% INJ 50 MEQ/50 ML DISP.SYRIN IV SCH ×2 (12:22→17:15)
[2017-12-16 15:44] LABS: ARTERIAL BLOOD BASE EXCESS -12.6 mmol/L; ARTERIAL BLOOD H2CO3 0.88 mmol/L (1.05-1.35); ARTERIAL BLOOD O2 SATURATION 91.7 % (94-98); ARTERIAL BLOOD PCO2 29.1 mmHg (35-45); ARTERIAL BLOOD PH 7.27 (7.35-7.45); ARTERIAL BLOOD PO2 68.7 mmHg (80-100); ARTERIAL BLOOD TOTAL CO2 13.9 mmol/L (21-25)
[2017-12-16 15:59] LABS: ARTERIAL BLOOD FIO2 100%
[2017-12-16 16:18] LABS: ANION GAP 16 (5-19); BLOOD UREA NITROGEN 21 mg/dL (7-20); CARBON DIOXIDE 15 mmol/L (22-30); CHLORIDE 99 mmol/L (98-107); GLUCOSE 230 mg/dL (75-110); POTASSIUM 4.2 mmol/L (3.6-5.0); SODIUM 130.2 mmol/L (137-145)
[2017-12-16] MEDS ORDERED: MICAFUNGIN SODIUM INJ/PF 100 MG VIAL IV ONE (16:19)
[2017-12-16 16:36] LABS: CALCIUM 6.1 mg/dL (8.4-10.2)
--- NOTE | 2017-12-16 16:53 | Progress Note ---
Provider Note Provider Note: ID Consult Note- Patient has Klebsiella pneumoniae sepsis with blood and urine cultures from admission growing this organism. She had non-albicans Olamide in blood from late November. The patient has not received an adequate course of therapy for the candidemia. She should have received a minimum of two weeks of micafungin ( or another appropriate anti-fungal drug) from the first negative blood culture, which was on December 07. The Klebsiella pneumoniae is sensitive to cefazolin. Patient's risk factor for the candidemia appears to be corticosteroid use. Recommendations: 1. Cefazolin 2 gm IV q 8 hours for the Klebsiella bacteremia. 2. Micafungin 100 mg IV q day. Follow up culture result to determine species of Olamide. 3. Repeat blood cultures to make sure that fungemia has not recurred. 4. Funduscopic exam (preferably a dilated exam by an test examiner) to rule out endophthalmitis. 5. Cardiac exam to rule out heart murmur. If murmur is present, would obtain an echocardiogram to rule out endocarditis. Elier Mendez MD Pager: [phone]
[2017-12-16] MEDS ORDERED: GLUCAGON,HUMAN RECOMB 1 MG INJ IM PRN (16:59)
[2017-12-16] MEDS ORDERED: INSULIN LISPRO 100 UNIT/ML 3 ML VIAL SUBCUT PRN (16:59)
[2017-12-16] MEDS ORDERED: DEXTROSE 40% GEL 15 GM TUBE PO PRN ×2 (16:59)
[2017-12-16] MEDS ORDERED: DEXTROSE 50%-WATER 25 GM/50 ML DISP.SYRIN IV PRN ×2 (16:59)
[2017-12-16] MEDS ORDERED: MICAFUNGIN SODIUM 100 MG in NORMAL SALINE 100 ML IV SCH (18:00)
[2017-12-16 18:49] VITALS: BP 92/61
[2017-12-16] MEDS ORDERED: NORMAL SALINE 250 ML with FUROSEMIDE 250 MG IV PRN ×2 (19:00)
--- NOTE | 2017-12-16 19:03 | PDOC CONSULTATION ---
Consultation Consult Date: 12/16/17 Attending physician:: JESSICA NIELSON Consult reason:: [place] to see the patient because of severe anasarca, acute kidney injury and oliguria. History of Present Illness Admission Date/PCP: 12/14/17 01:48 History of Present Illness: COOKIE ARCHIBALD is a 62 year old female with a past medical history of multiple sclerosis resulting in paraplegia and bedbound state for 9 years. Over the past 2 weeks she has required hospitalization 3 times for aspiration pneumonia, fungemia and MS flare. Patient was transferred to [facility] from December 07 - December 12, 2017. On December 13 she started having some problems with her speech. December 14 patient presents with 1 hour of fever of 103.1 mild dysarthria, delayed speech and left-sided facial droop. Her neurologic symptoms have returned to baseline subsequently not receiving TPA after an unremarkable CT of the head. Chest x-ray reveals left upper lobe infiltrate, urinalysis reveals pyuria, chemistry reveals lactic acid of 4.1. She started on empiric antibiotics and referred to the hospitalist for admission. Patient was awake and alert oriented 2 speaking clearly but with delay which is a known intermittent baseline. Since admission the patient started to deteriorate clinically. Patient became very hypotensive and is currently on maximum doses of 3 vasopressors. The blood pressure down as low as 66/56 on 3 pressors. She is currently intubated with acute respiratory failure. She was also found to have Klebsiella bacteremia organism which was also found in the urine culture. Infectious disease was consulted over the phone who made recommendations for the antibiotics and coverage for the previous history of fungemia as well. Patient has been given a lot of fluids because of severe hypotension for the last 24-48 hours. From the intake and output record I think she is at least + 15 L more or less. She is currently oliguric. She has anasarca and has developed a lot of blisters all over her body which are weeping. In terms of her kidney function she came in with a BUN of 18 and creatinine of 0.81 and currently the last lab showed a BUN of 21 and creatinine of 1.68. She continues to have metabolic acidosis. She was on bicarbonate drip but to minimize the fluid intake this was changed to intermittent dosing of sodium bicarbonate. Currently the patient remains to be in a very critical condition. Past Medical History Pulmonary Medical History: Reports: Pneumonia - aspiration Neurological Medical History: Reports: Multiple Sclerosis Infectious Medical History: Reports: Other Infectious History Note: Fungemia Past Surgical History Past Surgical History: Reports: Hysterectomy, Orthopedic Surgery - right elbow Social History Information Source: [facility] Records Lives with: Spouse/Significant other Smoking Status: Never Smoker Frequency of Alcohol Use: None Hx Recreational Drug Use: No Drugs: None Hx Prescription Drug Abuse: No - Advance Directive Resuscitation Status: Full Code Family History Family History: Reviewed & Not Pertinent Parental Family History Reviewed: Yes Children Family History Reviewed: No Sibling(s) Family History Reviewed.: No Medication/Allergy Home Medications: Amlodipine Besylate [Norvasc 10 mg Tablet] 5 mg PO Q12 12/03/17 Aspirin [Ecotrin 81 mg EC Tablet] 81 mg PO DAILY 12/03/17 Baclofen [Baclofen 20 mg Tablet] 20 mg PO Q8 12/03/17 Butalb/Acetaminophen/Caffeine [Uhqlnd-Etkdpwvh-Bztp 50-325-40] 1 tab PO Q6HP PRN 12/03/17 Citalopram Hydrobromide [Celexa 40 mg Tablet] 40 mg PO DAILY 12/03/17 Gabapentin [Neurontin] 600 mg PO Q8 12/03/17 Ginkgo Biloba 120 mg PO DAILY 12/03/17 Indomethacin [Indocin 25 mg Capsule] 50 mg PO BIDBS 12/03/17 Meclizine HCl [Antivert 25 mg Tablet] 25 mg PO Q8HP PRN 12/03/17 Metoprolol Tartrate [Lopressor 25 mg Tablet] 12.5 mg PO Q12 12/03/17 Multivitamin [Tab-A-Miranda (Multiple Vitamin) Tablet] 1 tab PO DAILY 12/03/17 Sumatriptan Succinate [Imitrex 100 mg Tablet] 50 mg PO PRN PRN 12/03/17 Allergies/Adverse Reactions: No Known Allergies Allergy (Verified 12/02/17 07:45) Review of Systems ROS unobtainable: Due to endotracheal tube, Due to mental status Physical Exam Vital Signs: Temp Pulse Resp BP Pulse Ox 98.2 F 99 28 H 99/66 L 96 12/16/17 16:00 12/16/17 16:00 12/16/17 16:00 12/16/17 16:00 12/16/17 08:27 Intake & Output 12/15/17 12/16/17 12/17/17 06:59 06:59 06:59 Intake Total 6204 9879 Output Total 495 925 185 Balance 5709 8954 -185 Weight 78.3 kg 85.8 kg Exam: General appearance: Patient is intubated and sedated Head exam: PRESENT: atraumatic, normocephalic Eye exam: PRESENT: Eyes are currently covered Mouth exam: PRESENT: ET tube in place Neck exam: PRESENT: full ROM. ABSENT: carotid bruit, JVD, lymphadenopathy, thyromegaly Respiratory exam: PRESENT: Diminished to auscultation bilaterally. ABSENT: rales, rhonchi, stridor, wheezes Cardiovascular exam: PRESENT: RRR, +S1, +S2. ABSENT: systolic murmur Pulses: PRESENT: normal radial pulses, decrease dorsalis pedis pulses GI/Abdominal exam: PRESENT: Abdomen is quiet almost no bowel sounds, soft. ABSENT: guarding, mass, tenderness Rectal exam: deferred Extremities exam: PRESENT: full ROM. She has grade 4 bilateral lower extremity pedal edema after thighs with diffuse blisters and weeping edema. Basically the patient has anasarca swelling and upper extremities and her whole body. Musculoskeletal: PRESENT: full ROM. ABSENT: deformity Neurological exam: PRESENT: Intubated Psychiatric exam: PRESENT: Cannot be assessed due to being intubated Skin exam: PRESENT: She has multiple diffuse blisters some of them are weeping. Results Laboratory Results: 12/16/17 04:15 12/16/17 15:45 12/15/17 12/15/17 12/15/17 18:00 19:10 20:00 WBC RBC Hgb Hct MCV MCH MCHC RDW Plt Count Seg Neutrophils % Lymphocytes % Monocytes % Eosinophils % Basophils % Absolute Neutrophils Absolute Lymphocytes Absolute Monocytes Absolute Eosinophils Absolute Basophils Carbonic Acid HCO3/H2CO3 Ratio ABG pH ABG pCO2 ABG pO2 ABG HCO3 ABG O2 Saturation ABG Base Excess FiO2 Sodium 123.7 L Potassium 5.4 H Chloride 103 Carbon Dioxide 6 L* Anion Gap 15 BUN 16 Creatinine 1.46 H Est GFR ( Amer) 44 L Est GFR (Non-Af Amer) 36 L Glucose 601 H* 601 H* 571 H* Lactic Acid Calcium 5.7 L* Magnesium Total Bilirubin AST ALT Alkaline Phosphatase Total Protein Albumin Amylase Lipase 12/15/17 12/15/1712/15/18 21:10 21:10 21:40 WBC RBC Hgb Hct MCV MCH MCHC RDW Plt Count Seg Neutrophils % Lymphocytes % Monocytes % Eosinophils % Basophils % Absolute Neutrophils Absolute Lymphocytes Absolute Monocytes Absolute Eosinophils Absolute Basophils Carbonic Acid 0.56 L HCO3/H2CO3 Ratio 9:1 ABG pH 7.07 L* ABG pCO2 18.7 L* ABG pO2 99.4 ABG HCO3 5.3 L ABG O2 Saturation 94.9 ABG Base Excess -23.0 FiO2 60% Sodium Potassium Chloride Carbon Dioxide Anion Gap BUN Creatinine Est GFR ( Amer) Est GFR (Non-Af Amer) Glucose 563 H* Lactic Acid Calcium Magnesium Total Bilirubin AST ALT Alkaline Phosphatase Total Protein Albumin 1.3 L Amylase Lipase 12/15/17 12/15/17 12/16/17 22:05 23:15 00:00 WBC RBC Hgb Hct MCV MCH MCHC RDW Plt Count Seg Neutrophils % Lymphocytes % Monocytes % Eosinophils % Basophils % Absolute Neutrophils Absolute Lymphocytes Absolute Monocytes Absolute Eosinophils Absolute Basophils Carbonic Acid 0.72 L HCO3/H2CO3 Ratio 12:1 ABG pH 7.18 L* ABG pCO2 23.8 L ABG pO2 81.2 ABG HCO3 8.8 L ABG O2 Saturation 93.5 L ABG Base Excess -17.9 FiO2 60% Sodium Potassium Chloride Carbon Dioxide Anion Gap BUN Creatinine Est GFR ( Amer) Est GFR (Non-Af Amer) Glucose 573 H* 587 H* Lactic Acid Calcium Magnesium Total Bilirubin AST ALT Alkaline Phosphatase Total Protein Albumin Amylase Lipase 12/16/17 12/16/17 12/16/17 00:00 00:00 00:00 WBC 19.9 H RBC 3.55 L Hgb 10.0 L D Hct 31.6 L MCV 89 MCH 28.2 MCHC 31.7 L RDW 19.1 H Plt Count 48 L Seg Neutrophils % Not Reportable Lymphocytes % Not Reportable Monocytes % Not Reportable Eosinophils % Not Reportable Basophils % Not Reportable Absolute Neutrophils Not Reportable Absolute Lymphocytes Not Reportable Absolute Monocytes Not Reportable Absolute Eosinophils Not Reportable Absolute Basophils Not Reportable Carbonic Acid HCO3/H2CO3 Ratio ABG pH ABG pCO2 ABG pO2 ABG HCO3 ABG O2 Saturation ABG Base Excess FiO2 Sodium 125.4 L Potassium 4.8 Chloride 102 Carbon Dioxide 9 L* Anion Gap 14 BUN 18 Creatinine 1.45 H Est GFR ( Amer) 44 L Est GFR (Non-Af Amer) 36 L Glucose 586 H* Lactic Acid 11.6 H Calcium 5.8 L* Magnesium 1.8 Total Bilirubin AST ALT Alkaline Phosphatase Total Protein Albumin Amylase Lipase 12/16/17 12/16/17 12/16/17 01:10 02:05 03:05 WBC RBC Hgb Hct MCV MCH MCHC RDW Plt Count Seg Neutrophils % Lymphocytes % Monocytes % Eosinophils % Basophils % Absolute Neutrophils Absolute Lymphocytes Absolute Monocytes Absolute Eosinophils Absolute Basophils Carbonic Acid HCO3/H2CO3 Ratio ABG pH ABG pCO2 ABG pO2 ABG HCO3 ABG O2 Saturation ABG Base Excess FiO2 Sodium Potassium Chloride Carbon Dioxide Anion Gap BUN Creatinine Est GFR ( Amer) Est GFR (Non-Af Amer) Glucose 623 H* 614 H* 604 H* Lactic Acid Calcium Magnesium Total Bilirubin AST ALT Alkaline Phosphatase Total Protein Albumin Amylase Lipase 12/16/17 12/16/17 12/16/17 04:15 04:15 04:15 WBC 19.9 H RBC 3.70 L Hgb 10.5 L Hct 32.4 L MCV 87 MCH 28.4 MCHC 32.5 RDW 19.3 H Plt Count 46 L Seg Neutrophils % Not Reportable Lymphocytes % Not Reportable Monocytes % Not Reportable Eosinophils % Not Reportable Basophils % Not Reportable Absolute Neutrophils Not Reportable Absolute Lymphocytes Not Reportable Absolute Monocytes Not Reportable Absolute Eosinophils Not Reportable Absolute Basophils Not Reportable Carbonic Acid 0.72 L HCO3/H2CO3 Ratio 12:1 ABG pH 7.21 L ABG pCO2 23.8 L ABG pO2 79.6 L ABG HCO3 9.3 L ABG O2 Saturation 93.6 L ABG Base Excess -16.9 FiO2 65% Sodium 123.1 L Potassium 4.8 Chloride 97 L Carbon Dioxide 9 L* Anion Gap 17 BUN 20 Creatinine 1.46 H Est GFR ( Amer) 44 L Est GFR (Non-Af Amer) 36 L Glucose 554 H* Lactic Acid Calcium 6.1 L* Magnesium 1.9 Total Bilirubin 1.8 H AST 3425 H ALT 1679 H Alkaline Phosphatase 125 Total Protein 3.1 L Albumin 1.3 L Amylase Lipase 12/16/17 12/16/17 12/16/17 04:15 05:10 06:10 WBC RBC Hgb Hct MCV MCH MCHC RDW Plt Count Seg Neutrophils % Lymphocytes % Monocytes % Eosinophils % Basophils % Absolute Neutrophils Absolute Lymphocytes Absolute Monocytes Absolute Eosinophils Absolute Basophils Carbonic Acid HCO3/H2CO3 Ratio ABG pH ABG pCO2 ABG pO2 ABG HCO3 ABG O2 Saturation ABG Base Excess FiO2 Sodium Potassium Chloride Carbon Dioxide Anion Gap BUN Creatinine Est GFR ( Amer) Est GFR (Non-Af Amer) Glucose 507 H* 492 H* Lactic Acid 10.1 H Calcium Magnesium Total Bilirubin AST ALT Alkaline Phosphatase Total Protein Albumin Amylase Lipase 12/16/17 12/16/17 12/16/17 07:05 08:30 08:30 WBC RBC Hgb Hct MCV MCH MCHC RDW Plt Count Seg Neutrophils % Lymphocytes % Monocytes % Eosinophils % Basophils % Absolute Neutrophils Absolute Lymphocytes Absolute Monocytes Absolute Eosinophils Absolute Basophils Carbonic Acid HCO3/H2CO3 Ratio ABG pH ABG pCO2 ABG pO2 ABG HCO3 ABG O2 Saturation ABG Base Excess FiO2 Sodium Potassium Chloride Carbon Dioxide Anion Gap BUN Creatinine Est GFR ( Amer) Est GFR (Non-Af Amer) Glucose 440 H* 420 H* Lactic Acid 9.2 H Calcium Magnesium Total Bilirubin AST ALT Alkaline Phosphatase Total Protein Albumin Amylase 269 H Lipase 1356.5 H 12/16/17 12/16/17 12/16/17 09:24 09:24 10:50 WBC RBC Hgb Hct MCV MCH MCHC RDW Plt Count Seg Neutrophils % Lymphocytes % Monocytes % Eosinophils % Basophils % Absolute Neutrophils Absolute Lymphocytes Absolute Monocytes Absolute Eosinophils Absolute Basophils Carbonic Acid 0.92 L HCO3/H2CO3 Ratio 12:1 ABG pH 7.21 L ABG pCO2 30.6 L ABG pO2 63.7 L ABG HCO3 11.9 L ABG O2 Saturation 88.0 L ABG Base Excess -14.8 FiO2 70% Sodium 126.4 L Potassium 4.4 Chloride 98 Carbon Dioxide 12 L Anion Gap 16 BUN 20 Creatinine 1.45 H Est GFR ( Amer) 44 L Est GFR (Non-Af Amer) 36 L Glucose 408 H* Lactic Acid Calcium 5.9 L* Magnesium Total Bilirubin AST ALT Alkaline Phosphatase Total Protein Albumin 1.2 L Amylase Lipase 12/16/17 12/16/17 12/16/17 15:30 15:45 15:45 WBC RBC Hgb Hct MCV MCH MCHC RDW Plt Count Seg Neutrophils % Lymphocytes % Monocytes % Eosinophils % Basophils % Absolute Neutrophils Absolute Lymphocytes Absolute Monocytes Absolute Eosinophils Absolute Basophils Carbonic Acid 0.88 L HCO3/H2CO3 Ratio 14:1 ABG pH 7.27 L ABG pCO2 29.1 L ABG pO2 68.7 L ABG HCO3 13.0 L ABG O2 Saturation 91.7 L ABG Base Excess -12.6 FiO2 100% Sodium 130.2 L Potassium 4.2 Chloride 99 Carbon Dioxide 15 L Anion Gap 16 BUN 21 H Creatinine 1.68 H Est GFR ( Amer) 37 L Est GFR (Non-Af Amer) 31 L Glucose 230 H Lactic Acid Calcium 6.1 L* Magnesium Total Bilirubin AST ALT Alkaline Phosphatase Total Protein Albumin 1.8 L Amylase Lipase 12/14/17 02:10 Blood Blood Culture - Final Klebsiella Pneumoniae 12/15/17 05:40 CK-MB (CK-2) 12.50 H Troponin I 0.186 Impressions: Head CT 12/13/17 22:25 IMPRESSION: No acute intracranial abnormality. Head CTA 12/13/17 22:25 IMPRESSION: Limitation due to motion artifact at the level of the mid cervical spine; consider repeat or surveillance CTA of the neck as clinically warranted. Else, unremarkable CTA of the head and neck. Neck CTA 12/13/17 22:25 IMPRESSION: Limitation due to motion artifact at the level of the mid cervical spine; consider repeat or surveillance CTA of the neck as clinically warranted. Else, unremarkable CTA of the head and neck. Abdomen X-Ray 12/16/17 00:00 IMPRESSION: PAUCITY OF BOWEL GAS. NASOGASTRIC TUBE WITH THE TIP IN THE STOMACH. NO RADIOGRAPHIC EVIDENCE FOR ACUTE ABDOMINAL DISEASE. Chest X-Ray 12/16/17 06:00 IMPRESSION: 1. Significant interval increase in bilateral airspace opacities with likely now moderate bilateral pleural effusions. Assessment & Plan - Diagnosis (1) Septic shock Is this a current diagnosis for this admission?: Yes Plan: The patient has a very severe sepsis clinically. She is currently on maximum doses of 3 vasopressors and the blood pressure is still very low. Continue IV antibiotics. Infectious disease was consulted and recommended current IV antibiotics. I does express concern that the patient is very sick and she is only on cefazolin for her Klebsiella pneumonia infection. I spoke with Dr. Nielson about it and she will talk to the infectious disease doctor again regarding recommendations regarding antibiotic coverage. (2) Acute kidney injury Is this a current diagnosis for this admission?: Yes Plan: This is likely secondary to acute tubular necrosis as a result of severe hypotension due to septic shock. Patient is currently very oliguric. She is at least 50 L positive. Because of severe hypotension and 3 vasopressors I do not think the patient can tolerate a conventional intermittent hemodialysis which is the only mode of renal replacement therapy that we can offer in the hospital. The patient needs continuous renal replacement therapy which unfortunately we do not offer in this facility. I discussed this with Dr. Nielson. I talked with the patient's and daughter at bedside and reiterate the severity of the patient's critical condition. I discussed the need for a week continuous renal replacement therapy which we did not offer in this facility and therefore patient needs to be transferred if he stable enough in a tertiary care facility. With intermittent hemodialysis I am afraid that this may be more harmful than beneficial to the patient if she goes into more hypotension on maximum doses of 3 pressors. The patient's and daughter understood and agreed with the plan of possible transfer if the patient is stable enough. I also indicated that if the patient remains to be sick as she is currently and she is not to be stable enough to be transferred she may not make it through this acute illness. After talking to them I spoke to Dr. nielson again and recommended to initiate transfer so that if the patient becomes a little bit more stable for transfer then we can transfer her right away. Dr. nielson is initiating the process for transfer. Meanwhile I am going to start a Lasix drip in this patient. Patient was already given 4 vials of albumin intravenously today. We will continue to monitor patient's kidney function. If the patient miraculously show clinical improvement in terms of her blood pressure and we are still not able to transfer her we might need to revisit possibility of intermittent conventional hemodialysis. However I am not very hopeful that we can do this. (3) Acute tubular necrosis Is this a current diagnosis for this admission?: Yes (4) Sepsis due to urinary tract infection Is this a current diagnosis for this admission?: Yes (5) Anasarca Is this a current diagnosis for this admission?: Yes (6) Metabolic acidosis Is this a current diagnosis for this admission?: Yes Plan: Agree with sodium bicarbonate given intermittently in view of restricting intake. (7) Hyponatremia Is this a current diagnosis for this admission?: Yes Plan: Due to hypervolemia and anasarca. (8) Hypocalcemia Is this a current diagnosis for this admission?: Yes Plan: Replace as necessary. (9) Acute respiratory failure Qualifiers: Respiratory failure complication: unspecified whether with hypoxia or hypercapnia Qualified Code(s): J96.00 - Acute respiratory failure, unspecified whether with hypoxia or hypercapnia Is this a current diagnosis for this admission?: Yes (10) Hyperglycemia Is this a current diagnosis for this admission?: Yes (11) Fungemia Is this a current diagnosis for this admission?: Yes (12) Multiple sclerosis Is this a current diagnosis for this admission?: Yes - Notes Notes: Case discussed with Dr. nielson. Also discussed with the and daughter as stated above. Plan also discussed with the patient's nurse. Thank you very much for this consultation. - Time Total Critical Time (Minutes): 60 Medications reviewed and adjusted accordingly: Yes
--- NOTE | 2017-12-16 19:30 | PDOC PROGRESS REPORT ---
Subjective Progress Note for:: 12/16/17 Subjective:: Patient about the same and has made very little progress. In fact there has been significant deterioration. Patient still on maximum vasopressors doses. Currently she is on 3 vasopressors. Her urine output is very low. 2D echo performed yesterday had shown relatively well-preserved LVEF without any significant valvular abnormalities. No pericardial effusion was noted. Patient remains intubated, sedated, patient looks extremely sick. Medications reviewed. Reason For Visit: CVA SEPSIS UTI PNEUMONIA Physical Exam Vital Signs: Temp Pulse Resp BP Pulse Ox 97.9 F 97 28 H 92/61 L 96 12/16/17 18:00 12/16/17 18:00 12/16/17 18:00 12/16/17 18:00 12/16/17 08:27 Intake & Output 12/15/17 12/16/17 12/17/17 06:59 06:59 06:59 Intake Total 6204 9879 Output Total 495 925 220 Balance 5709 8954 -220 Weight 78.3 kg 85.8 kg Exam: GENERAL: well-nourished and in no acute distress. Patient is intubated and sedated. Orientation cannot be checked HEAD: Atraumatic, normocephalic. EYES: Pupils equal round and reactive to light, extraocular movements could not be checked, sclera anicteric, conjunctiva are normal. ENT: TMs normal, nares patent, oropharynx clear without exudates. Moist mucous membranes. No oral ulcerations or bleeding gums noted NECK: supple without lymphadenopathy or JVD. Trachea is central. No cervical or axillary lymphadenopathy noted. Carotids are 2+ LUNGS: Breath sounds mostly clear to auscultation patient is noted to have bibasal crackles at the extreme bases CHEST: Palpation of the chest wall shows no significant chest wall tenderness or abnormalities. HEART: [place] [employer], No PSH, 1/6 EMMY aortic area, 1/6 clark systolic murmur mitral area , no rubs or gallops. ABDOMEN: Soft, no significant tenderness appreciated, normoactive bowel sounds. No guarding, no rebound. No rigidity noted . No masses appreciated. EXTREMITIES: Pedal pulses are 1-2+, no calf tenderness noted, 2-3 + pedal edema noted. No clubbing or cyanosis. NEUROLOGICAL: The patient cannot participate in the neurological exam but no facial asymmetry noted. Extremities slightly hypotonic PSYCH: This cannot be evaluated. Patient cannot participate. SKIN: Patient noted to have bedsores. Patient has some weeping of fluid from the skin. MUSCULOSKELETAL EXAM: No significant joint swelling noted. Patient cannot participate in musculoskeletal exam Results Laboratory Results: 12/16/17 04:15 12/16/17 15:45 12/15/17 12/15/17 12/15/17 19:10 20:00 21:10 WBC RBC Hgb Hct MCV MCH MCHC RDW Plt Count Seg Neutrophils % Lymphocytes % Monocytes % Eosinophils % Basophils % Absolute Neutrophils Absolute Lymphocytes Absolute Monocytes Absolute Eosinophils Absolute Basophils Carbonic Acid HCO3/H2CO3 Ratio ABG pH ABG pCO2 ABG pO2 ABG HCO3 ABG O2 Saturation ABG Base Excess FiO2 Sodium 123.7 L Potassium 5.4 H Chloride 103 Carbon Dioxide 6 L* Anion Gap 15 BUN 16 Creatinine 1.46 H Est GFR ( Amer) 44 L Est GFR (Non-Af Amer) 36 L Glucose 601 H* 571 H* 563 H* Lactic Acid Calcium 5.7 L* Magnesium Total Bilirubin AST ALT Alkaline Phosphatase Total Protein Albumin Amylase Lipase 12/15/17 12/15/17 12/15/17 21:10 21:40 22:05 WBC RBC Hgb Hct MCV MCH MCHC RDW Plt Count Seg Neutrophils % Lymphocytes % Monocytes % Eosinophils % Basophils % Absolute Neutrophils Absolute Lymphocytes Absolute Monocytes Absolute Eosinophils Absolute Basophils Carbonic Acid 0.56 L HCO3/H2CO3 Ratio 9:1 ABG pH 7.07 L* ABG pCO2 18.7 L* ABG pO2 99.4 ABG HCO3 5.3 L ABG O2 Saturation 94.9 ABG Base Excess -23.0 FiO2 60% Sodium Potassium Chloride Carbon Dioxide Anion Gap BUN Creatinine Est GFR ( Amer) Est GFR (Non-Af Amer) Glucose 573 H* Lactic Acid Calcium Magnesium Total Bilirubin AST ALT Alkaline Phosphatase Total Protein Albumin 1.3 L Amylase Lipase 12/15/17 12/16/17 12/16/17 23:15 00:00 00:00 WBC RBC Hgb Hct MCV MCH MCHC RDW Plt Count Seg Neutrophils % Lymphocytes % Monocytes % Eosinophils % Basophils % Absolute Neutrophils Absolute Lymphocytes Absolute Monocytes Absolute Eosinophils Absolute Basophils Carbonic Acid 0.72 L HCO3/H2CO3 Ratio 12:1 ABG pH 7.18 L* ABG pCO2 23.8 L ABG pO2 81.2 ABG HCO3 8.8 L ABG O2 Saturation 93.5 L ABG Base Excess -17.9 FiO2 60% Sodium 125.4 L Potassium 4.8 Chloride 102 Carbon Dioxide 9 L* Anion Gap 14 BUN 18 Creatinine 1.45 H Est GFR ( Amer) 44 L Est GFR (Non-Af Amer) 36 L Glucose 587 H* 586 H* Lactic Acid Calcium 5.8 L* Magnesium 1.8 Total Bilirubin AST ALT Alkaline Phosphatase Total Protein Albumin Amylase Lipase 12/16/17 12/16/17 12/16/17 00:00 00:00 01:10 WBC 19.9 H RBC 3.55 L Hgb 10.0 L D Hct 31.6 L MCV 89 MCH 28.2 MCHC 31.7 L RDW 19.1 H Plt Count 48 L Seg Neutrophils % Not Reportable Lymphocytes % Not Reportable Monocytes % Not Reportable Eosinophils % Not Reportable Basophils % Not Reportable Absolute Neutrophils Not Reportable Absolute Lymphocytes Not Reportable Absolute Monocytes Not Reportable Absolute Eosinophils Not Reportable Absolute Basophils Not Reportable Carbonic Acid HCO3/H2CO3 Ratio ABG pH ABG pCO2 ABG pO2 ABG HCO3 ABG O2 Saturation ABG Base Excess FiO2 Sodium Potassium Chloride Carbon Dioxide Anion Gap BUN Creatinine Est GFR ( Amer) Est GFR (Non-Af Amer) Glucose 623 H* Lactic Acid 11.6 H Calcium Magnesium Total Bilirubin AST ALT Alkaline Phosphatase Total Protein Albumin Amylase Lipase 12/16/17 12/16/17 12/16/17 02:05 03:05 04:15 WBC RBC Hgb Hct MCV MCH MCHC RDW Plt Count Seg Neutrophils % Lymphocytes % Monocytes % Eosinophils % Basophils % Absolute Neutrophils Absolute Lymphocytes Absolute Monocytes Absolute Eosinophils Absolute Basophils Carbonic Acid 0.72 L HCO3/H2CO3 Ratio 12:1 ABG pH 7.21 L ABG pCO2 23.8 L ABG pO2 79.6 L ABG HCO3 9.3 L ABG O2 Saturation 93.6 L ABG Base Excess -16.9 FiO2 65% Sodium Potassium Chloride Carbon Dioxide Anion Gap BUN Creatinine Est GFR ( Amer) Est GFR (Non-Af Amer) Glucose 614 H* 604 H* Lactic Acid Calcium Magnesium Total Bilirubin AST ALT Alkaline Phosphatase Total Protein Albumin Amylase Lipase 12/16/17 12/16/17 12/16/17 04:15 04:15 04:15 WBC 19.9 H RBC 3.70 L Hgb 10.5 L Hct 32.4 L MCV 87 MCH 28.4 MCHC 32.5 RDW 19.3 H Plt Count 46 L Seg Neutrophils % Not Reportable Lymphocytes % Not Reportable Monocytes % Not Reportable Eosinophils % Not Reportable Basophils % Not Reportable Absolute Neutrophils Not Reportable Absolute Lymphocytes Not Reportable Absolute Monocytes Not Reportable Absolute Eosinophils Not Reportable Absolute Basophils Not Reportable Carbonic Acid HCO3/H2CO3 Ratio ABG pH ABG pCO2 ABG pO2 ABG HCO3 ABG O2 Saturation ABG Base Excess FiO2 Sodium 123.1 L Potassium 4.8 Chloride 97 L Carbon Dioxide 9 L* Anion Gap 17 BUN 20 Creatinine 1.46 H Est GFR ( Amer) 44 L Est GFR (Non-Af Amer) 36 L Glucose 554 H* Lactic Acid 10.1 H Calcium 6.1 L* Magnesium 1.9 Total Bilirubin 1.8 H AST 3425 H ALT 1679 H Alkaline Phosphatase 125 Total Protein 3.1 L Albumin 1.3 L Amylase Lipase 12/16/17 12/16/17 12/16/17 05:10 06:10 07:05 WBC RBC Hgb Hct MCV MCH MCHC RDW Plt Count Seg Neutrophils % Lymphocytes % Monocytes % Eosinophils % Basophils % Absolute Neutrophils Absolute Lymphocytes Absolute Monocytes Absolute Eosinophils Absolute Basophils Carbonic Acid HCO3/H2CO3 Ratio ABG pH ABG pCO2 ABG pO2 ABG HCO3 ABG O2 Saturation ABG Base Excess FiO2 Sodium Potassium Chloride Carbon Dioxide Anion Gap BUN Creatinine Est GFR ( Amer) Est GFR (Non-Af Amer) Glucose 507 H* 492 H* 440 H* Lactic Acid Calcium Magnesium Total Bilirubin AST ALT Alkaline Phosphatase Total Protein Albumin Amylase Lipase 12/16/17 12/16/17 12/16/17 08:30 08:30 09:24 WBC RBC Hgb Hct MCV MCH MCHC RDW Plt Count Seg Neutrophils % Lymphocytes % Monocytes % Eosinophils % Basophils % Absolute Neutrophils Absolute Lymphocytes Absolute Monocytes Absolute Eosinophils Absolute Basophils Carbonic Acid HCO3/H2CO3 Ratio ABG pH ABG pCO2 ABG pO2 ABG HCO3 ABG O2 Saturation ABG Base Excess FiO2 Sodium 126.4 L Potassium 4.4 Chloride 98 Carbon Dioxide 12 L Anion Gap 16 BUN 20 Creatinine 1.45 H Est GFR ( Amer) 44 L Est GFR (Non-Af Amer) 36 L Glucose 420 H* 408 H* Lactic Acid 9.2 H Calcium 5.9 L* Magnesium Total Bilirubin AST ALT Alkaline Phosphatase Total Protein Albumin Amylase 269 H Lipase 1356.5 H 12/16/17 12/16/17 12/16/17 09:24 10:50 15:30 WBC RBC Hgb Hct MCV MCH MCHC RDW Plt Count Seg Neutrophils % Lymphocytes % Monocytes % Eosinophils % Basophils % Absolute Neutrophils Absolute Lymphocytes Absolute Monocytes Absolute Eosinophils Absolute Basophils Carbonic Acid 0.92 L 0.88 L HCO3/H2CO3 Ratio 12:1 14:1 ABG pH 7.21 L 7.27 L ABG pCO2 30.6 L 29.1 L ABG pO2 63.7 L 68.7 L ABG HCO3 11.9 L 13.0 L ABG O2 Saturation 88.0 L 91.7 L ABG Base Excess -14.8 -12.6 FiO2 70% 100% Sodium Potassium Chloride Carbon Dioxide Anion Gap BUN Creatinine Est GFR ( Amer) Est GFR (Non-Af Amer) Glucose Lactic Acid Calcium Magnesium Total Bilirubin AST ALT Alkaline Phosphatase Total Protein Albumin 1.2 L Amylase Lipase 12/16/17 12/16/17 15:45 15:45 WBC RBC Hgb Hct MCV MCH MCHC RDW Plt Count Seg Neutrophils % Lymphocytes % Monocytes % Eosinophils % Basophils % Absolute Neutrophils Absolute Lymphocytes Absolute Monocytes Absolute Eosinophils Absolute Basophils Carbonic Acid HCO3/H2CO3 Ratio ABG pH ABG pCO2 ABG pO2 ABG HCO3 ABG O2 Saturation ABG Base Excess FiO2 Sodium 130.2 L Potassium 4.2 Chloride 99 Carbon Dioxide 15 L Anion Gap 16 BUN 21 H Creatinine 1.68 H Est GFR ( Amer) 37 L Est GFR (Non-Af Amer) 31 L Glucose 230 H Lactic Acid Calcium 6.1 L* Magnesium Total Bilirubin AST ALT Alkaline Phosphatase Total Protein Albumin 1.8 L Amylase Lipase 12/14/17 02:10 Blood Blood Culture - Final Klebsiella Pneumoniae 12/15/17 05:40 CK-MB (CK-2) 12.50 H Troponin I 0.186 Impressions: Head CT 12/13/17 22:25 IMPRESSION: No acute intracranial abnormality. Head CTA 12/13/17 22:25 IMPRESSION: Limitation due to motion artifact at the level of the mid cervical spine; consider repeat or surveillance CTA of the neck as clinically warranted. Else, unremarkable CTA of the head and neck. Neck CTA 12/13/17 22:25 IMPRESSION: Limitation due to motion artifact at the level of the mid cervical spine; consider repeat or surveillance CTA of the neck as clinically warranted. Else, unremarkable CTA of the head and neck. Abdomen X-Ray 12/16/17 00:00 IMPRESSION: PAUCITY OF BOWEL GAS. NASOGASTRIC TUBE WITH THE TIP IN THE STOMACH. NO RADIOGRAPHIC EVIDENCE FOR ACUTE ABDOMINAL DISEASE. Chest X-Ray 12/16/17 06:00 IMPRESSION: 1. Significant interval increase in bilateral airspace opacities with likely now moderate bilateral pleural effusions. Assessment & Plan - Diagnosis (1) Hypotension Qualifiers: Hypotension type: other hypotension type Qualified Code(s): I95.89 - Other hypotension Is this a current diagnosis for this admission?: Yes (2) Multiple sclerosis exacerbation Is this a current diagnosis for this admission?: Yes (3) Acute respiratory failure Qualifiers: Respiratory failure complication: unspecified whether with hypoxia or hypercapnia Qualified Code(s): J96.00 - Acute respiratory failure, unspecified whether with hypoxia or hypercapnia Is this a current diagnosis for this admission?: Yes (4) Aspiration pneumonia Qualifiers: Aspiration pneumonia type: unspecified Laterality: bilateral Lung location: unspecified part of lung Qualified Code(s): J69.0 - Pneumonitis due to inhalation of food and vomit Is this a current diagnosis for this admission?: Yes (5) Severe sepsis Is this a current diagnosis for this admission?: Yes (6) Elevated troponin I level Is this a current diagnosis for this admission?: Yes (7) Hyperglycemia Is this a current diagnosis for this admission?: Yes - Notes Notes: Severe sepsis: Patient on multiple antibiotics. Patient is on multiple pressors. Continue with stress dose of Solu-Medrol. Continue other supportive care. Overall prognosis poor, secondary to poor baseline status and also severe sepsis. Elevated troponin I: EKG is noted to have no acute ST-T wave changes. Most likely related to sepsis and from supply demand mismatch. Will repeat EKG and a stat echo to look for any wall motion abnormalities are new evolving EKG changes. Current EKG reviewed. Acute respiratory failure: Most likely related to sepsis, possible ARDS, possible CHF. Continue with artificial ventilation and endotracheal intubation as well as oxygenation. Aspiration pneumonia: Continue antibiotic therapy. Hyperglycemia: Recommend sliding scale glucose coverage. Multiple sclerosis: Patient has bedsores and also has been rather bedbound. She has poor general functional status. Overall prognosis is likely to be on the poor side. Acute oliguric renal failure: Patient seen bacteriology technician. Apparently dialysis cannot be offered at this institution and patient to unstable to be transferred out. Family conference called by the nurse, patient was subsequently made a DNR. However they wish all supportive care to be continued. 2D echo results reviewed with medical personnel's taking care of the patient. Yesterday I did discuss grave prognosis for this patient with patient's son. - Time Time with patient: Greater than 35 minutes - CODE STATUS : was discussed, patient remains DO NOT RESUSCITATE. Surrogate decision-maker unchanged. Multiple medical problems were addressed. More than 50% of the time spent coordinating care, discussing management plans with involved caregivers. Management plans discussed with involved personnels. Medical decision making was of moderate to high complexity, patient's has multiple comorbidities. Medications reviewed and adjusted accordingly: Yes
[2017-12-16 19:58] LABS: ARTERIAL BLOOD FIO2 100%; ARTERIAL BLOOD H2CO3 0.95 mmol/L (1.05-1.35); ARTERIAL BLOOD HCO3 13.2 mmol/L (20-26); ARTERIAL BLOOD O2 SATURATION 87.5 % (94-98); ARTERIAL BLOOD PCO2 31.4 mmHg (35-45); ARTERIAL BLOOD PH 7.24 (7.35-7.45); ARTERIAL BLOOD PO2 60.7 mmHg (80-100); ARTERIAL BLOOD TOTAL CO2 14.2 mmol/L (21-25)
[2017-12-16] MEDS ORDERED: CEFAZOLIN 2 GM/D5W RTU 2 GM/50 ML RTUPB IV SCH (22:00)
[2017-12-16] MEDS ORDERED: IMIPENEM/CILASTATIN SODIUM 500 MG in NORMAL SALINE 100 ML IV SCH (22:00)
--- NOTE | 2017-12-16 22:41 | PDOC TRANSFER SUMMARY ---
General Admission Date/PCP: 12/14/17 01:48 Admission Date: 12/14/17 Transfer Date: 12/16/17 Accepting Facility: [facility] Resuscitation Status: Full Code - Transfer Diagnosis (1) Acute kidney injury Is this a current diagnosis for this admission?: Yes (2) Acute respiratory failure Is this a current diagnosis for this admission?: Yes (3) Anasarca Is this a current diagnosis for this admission?: Yes (4) Septic shock Is this a current diagnosis for this admission?: Yes (5) Multiple sclerosis exacerbation Is this a current diagnosis for this admission?: Yes - Transfer Medications Home Medications: Amlodipine Besylate [Norvasc 10 mg Tablet] 5 mg PO Q12 12/03/17 Aspirin [Ecotrin 81 mg EC Tablet] 81 mg PO DAILY 12/03/17 Baclofen [Baclofen 20 mg Tablet] 20 mg PO Q8 12/03/17 Butalb/Acetaminophen/Caffeine [Whcktw-Mivkyqyp-Tcnb 50-325-40] 1 tab PO Q6HP PRN 12/03/17 Citalopram Hydrobromide [Celexa 40 mg Tablet] 40 mg PO DAILY 12/03/17 Gabapentin [Neurontin] 600 mg PO Q8 12/03/17 Ginkgo Biloba 120 mg PO DAILY 12/03/17 Indomethacin [Indocin 25 mg Capsule] 50 mg PO BIDBS 12/03/17 Meclizine HCl [Antivert 25 mg Tablet] 25 mg PO Q8HP PRN 12/03/17 Metoprolol Tartrate [Lopressor 25 mg Tablet] 12.5 mg PO Q12 12/03/17 Multivitamin [Tab-A-Miranda (Multiple Vitamin) Tablet] 1 tab PO DAILY 12/03/17 Sumatriptan Succinate [Imitrex 100 mg Tablet] 50 mg PO PRN PRN 12/03/17 Transfer Medications: Current Medications Acetaminophen (Tylenol 650 Mg Supp) 650 mg RI Q4HP PRN PRN Reason: PAIN OR TEMP >101F Stop: 01/13/18 14:06 Last Admin: 12/15/17 07:09 Dose: 650 mg Albuterol/Ipratropium (Duoneb 3 Ml Ampul) 3 ml NEB RTQ6 [facility] Stop: 01/13/18 01:59 Last Admin: 12/16/17 20:17 Dose: Not Given Dextrose (Dextrose Inj 50% Syringe (25 Gm/50 Ml)) 12.5 gm IV PRN PRN; Protocol PRN Reason: FOR BG 50-69 IN ALERT PATIENT Stop: 01/14/18 10:20 Dextrose (Dextrose Inj 50% Syringe (25 Gm/50 Ml)) 25 gm IV PRN PRN PRN Reason: Protocol Stop: 01/14/18 10:20 Dextrose (Dextrose Inj 50% Syringe (25 Gm/50 Ml)) 12.5 gm IV PRN PRN; Protocol PRN Reason: FOR BG 50-69 IN ALERT PATIENT Stop: 01/15/18 16:58 Dextrose (Dextrose Inj 50% Syringe (25 Gm/50 Ml)) 25 gm IV PRN PRN; Protocol PRN Reason: PER PROTOCOL Stop: 01/15/18 16:58 Furosemide (Lasix Inj/Pf 40 Mg/4 Ml Sdv) 40 mg IV PRN PRN PRN Reason: swelling Stop: 12/16/17 23:59 Last Admin: 12/16/17 18:34 Dose: 40 mg Glucagon (Glucagen Inj 1 Mg Vial) 1 mg IM PRN PRN; Protocol PRN Reason: EVALUATE FOR BG < 70 Stop: 01/14/18 10:20 Glucagon (Glucagen Inj 1 Mg Vial) 1 mg IM PRN PRN; Protocol PRN Reason: Evaluate for BG < 70 Stop: 01/15/18 16:58 Glucose (Glutose 40% Gel 15 Gm Tube) 15 gm PO PRN PRN; Protocol PRN Reason: FOR BG 50-69 IN ALERT PATIENT Stop: 01/14/18 10:20 Glucose (Glutose 40% Gel 15 Gm Tube) 30 gm PO PRN PRN; Protocol PRN Reason: FOR BG < 50 IN ALERT PATIENT Stop: 01/14/18 10:20 Glucose (Glutose 40% Gel 15 Gm Tube) 15 gm PO PRN PRN; Protocol PRN Reason: FOR BG 50-69 IN ALERT PATIENT Stop: 01/15/18 16:58 Glucose (Glutose 40% Gel 15 Gm Tube) 30 gm PO PRN PRN; Protocol PRN Reason: FOR BG < 50 IN ALERT PATIENT Stop: 01/15/18 16:58 Heparin Sodium (Porcine) (Heparin Inj 5,000 Units/Ml 1 Ml Syringe) 5,000 unit SUBCUT Q8 [facility] Stop: 01/13/18 05:59 Last Admin: 12/16/17 15:24 Dose: Not Given Heparin Sodium (Porcine) (Heparin Flush 10 Unit/Ml 5 Ml Disp.Syrg) 30 unit IV Q8 [facility] Stop: 01/13/18 13:59 Last Admin: 12/16/17 15:24 Dose: Not Given Heparin Sodium (Porcine) (Heparin Flush 10 Unit/Ml 5 Ml Disp.Syrg) 30 unit IV .AFTER EACH USE PRN PRN Reason: AFTER EACH INTERMITTENT USE Stop: 01/13/18 08:58 Hydrocortisone Sodium Succinate (Solu-Cortef Inj/Pf 100 Mg/ 2 Ml Sdv) 50 mg IV Q6 [facility] Stop: 01/15/18 11:59 Last Admin: 12/16/17 17:17 Dose: 50 mg Sodium Chloride (Nacl 0.9% 1000 Ml Iv Soln) 1,000 mls @ 100 mls/hr IV CONTINUOUS PRN PRN Reason: THIS MED IS NOT "PRN" Stop: 01/15/18 01:26 Last Admin: 12/16/17 13:54 Dose: 1,000 ml Norepinephrine Bitartrate 4 mg (/ Sodium Chloride) 250 mls @ 0 mls/hr IV CONTINUOUS PRN; Protocol; Titrate PRN Reason: THIS MED IS NOT "PRN" Stop: 01/15/18 02:34 Last Admin: 12/16/17 17:15 Dose: 4 mg Vasopressin 100 unit/ Sodium (Chloride) 250 mls @ 0 mls/hr IV CONTINUOUS PRN; Protocol; Titrate PRN Reason: THIS MED IS NOT "PRN" Stop: 01/15/18 02:34 Last Admin: 12/16/17 02:52 Dose: 100 unit Hard Fat/Phenylephrine 40 mg/ (Sodium Chloride) 250 mls @ 0 mls/hr IV CONTINUOUS PRN; Protocol; Titrate PRN Reason: THIS MED IS NOT "PRN" Stop: 01/15/18 02:35 Last Admin: 12/16/17 17:19 Dose: 40 mg Micafungin Sodium 100 mg/ (Sodium Chloride) 100 mls @ 100 mls/hr IV QPM [facility] Stop: 12/23/17 17:59 Last Admin: 12/16/17 18:35 Dose: 100 mg Cefazolin Sodium/Dextrose (Ancef Rtu 2 Gm/D5w 50 Ml Premix Bag) 2 gm in 50 mls @ 100 mls/hr IV Q8 [facility] Stop: 12/23/17 21:59 Furosemide 250 mg/ Sodium (Chloride) 250 mls @ 10 mls/hr IV CONTINUOUS PRN PRN Reason: THIS MED IS NOT "PRN" Stop: 01/15/18 18:59 Last Admin: 12/16/17 19:31 Dose: 250 mg Insulin Human Lispro (Humalog Insulin 100 Unit/1 Ml 3 Ml Vial) 0 - 12 unit SUBCUT Q4HP PRN; Protocol PRN Reason: PER PROTOCOL Stop: 01/15/18 16:58 Pantoprazole Sodium (Protonix Iv Inj 40 Mg Vial) 40 mg IV Q6AM [facility] Stop: 12/18/17 05:59 Last Admin: 12/16/17 05:58 Dose: 40 mg Pharmacy Profile Note (Medication Communication Order) 1 each MC QPM [facility] Stop: 01/16/18 17:59 Sodium Bicarbonate (Sodium Bicarbonate 8.4% Inj 50 Meq/50ml Syrin) 50 meq IV Q6 [facility] Stop: 12/18/17 11:59 Last Admin: 12/16/17 17:15 Dose: 50 meq Sodium Chloride (Saline Flush 2.5 Ml Monoject Prefil Syrin) 2.5 ml IV Q8 [facility] Stop: 01/13/18 05:59 Last Admin: 12/16/17 15:24 Dose: Not Given Sodium Chloride (Nacl 0.9% Inj/Pf 10 Ml Sdv) 10 ml IV .AFTER EACH USE PRN PRN Reason: AFTER EACH INTERMITTENT USE Stop: 01/13/18 08:58 - Allergies Allergies/Adverse Reactions: No Known Allergies Allergy (Verified 12/02/17 07:45) Hospital Course Hospital Course: COOKIE ARCHIBALD is a 62 year old female with a past medical history of multiple sclerosis resulting in paraplegia and bedbound state for 9 years. Over the past 2 weeks she has required hospitalization 3 times for aspiration pneumonia, fungemia and MS flare. Patient presents with 1 hour of fever of 103.1 mild dysarthria, delayed speech and left-sided facial droop. Her neurologic symptoms have returned to baseline subsequently not receiving TPA after an unremarkable CT of the head. Chest x- ray reveals left upper lobe infiltrate, urinalysis reveals pyuria, chemistry reveals lactic acid of 4.1. She started on empiric antibiotics and referred to the hospitalist for admission. Patient is awake and alert oriented 2 speaking clearly but with delay which is a known intermittent baseline. Patient was recently admitted to [facility] from 12/02/2017 until 12/07/2017. Patient was being treated for MS flare. Patient was started on pulse steroids. Patient received 3 doses of 1000 mg of Solu-Medrol. After MRI of brain did not demonstrate any evidence of an acute flare. Patient did not develop for anemia which was not Olamide albicans. Patient was started on micafungin. Patient was transferred to [facility] for ID and neurology evaluation. She was accepted and transferred at that time. Patient was readmitted to our facility following discharge from [facility] on . Klebsiella Bacteremia/Fungemia Patient was noted to have Klebsiella bacteremia. Source thought to be her urine. Patient was initially started on multiple antibiotics including Zosyn, Levaquin, cefepime, and lastly imipenem cilastatin. Based on the recommendation of the ID specialist from [facility] s[facility] to cefazolin on 12/16/2017. He also recommended starting patient on micafungin for her fungal infection (yeast not Olamide Albicans). Patient should be on micafungin x 1 week following her negative blood culture on 12/07/17. He also recommended evaluation by ophthalmology. Severe sepsis/Shock with multiorgan failure Patient was in severe sepsis with shock with multiorgan failure. Patient was started on Levophed, Jose L-Synephrine and vasopressin. Patient was also being given IV fluids at 200 cc an hour. She developed anasarca to the point of blistering. Patient was given albumin followed by Lasix. Of note patient did have a normal cardiac echo. Patient despite this patient blood pressures continue to drop. Patient was started on hydrocortisone and blood pressures started to improve a little, but patient still required Levophed, Jose L- Synephrine and vasopressin. Nephrology did evaluate the patient and recommended Lasix drip but ultimately patient would need CRRT which could not be offered here. Patient creatinine trended from 0.81-1.68. Patient white count was 19.9, hemoglobin 10.5, hematocrit 32.4 platelets 46. Patient also had hypoxic respiratory failure and was intubated. Patient was gradually titrated up to 100% FiO2 despite that still had sats in the 60s. Chest x-ray showed more congestion. Paient last blood gas was pH 7.24 PCO2 31.4 PO2 60.7 bicarb 13.2 O2 saturation 87.5. Patient vent settings will be managed by pulmonary. Severe metabolic acidosis. Patient has severe metabolic acidosis for which she was started on a bicarb drip. Patient bicarb started on increase. She was then switched to bicarb pushes to decrease the amount of volume patient was she was receiving as she was not voiding. Bicarb trended from 6 up to 15. Hyperglycemia Patient blood glucoses are running high therefore she was started on an insulin drip. Patient does not have any history of diabetes. All the dextrose was removed from patient drips. Patient blood glucoses started to trend down. Patient was transitioned to subcutaneous insulin. Patient to possibly be evaluated for diabetes. Metabolic encephalopathy. There is severe sepsis. Patient had a CT scan done of the head on 12/13/2017 that did not show any acute abnormality. Patient was initially placed on Versed for sedation. This was weaned off. Despite having this discontinued patient did not move or respond. Anemia/thrombocytopenia Patient had anemia possibly secondary to severe sepsis as there was no obvious sign of bleeding. Patient hemoglobin trended from 11.5 down to 7.8. Patient was transfused 2 units of packed RBCs. Patient platelets trended down from 280, 000-46,000. This could also be related to her severe infection. Patient had just concerning for DIC. Patient had a PT of 30.9 INR of 2.80 a PTT of 48.4 fibrinogen of 173 fibrinogen degradation products of greater than 40 and a d- dimer of greater than 20 which is possible in severe sepsis. Once patient appeared somewhat stable [facility] contacted and patient was accepted in transfer. Dr. Ireland was the accepting physician. There patient can receive critical care, infectious disease and CRRT which is not offered here. Physical Exam Vital Signs: Temp Pulse Resp BP Pulse Ox 97.9 F 97 28 H 92/61 L 96 12/16/17 18:00 12/16/17 18:00 12/16/17 18:00 12/16/17 18:00 12/16/17 08:27 Intake & Output 12/15/17 12/16/17 12/17/17 06:59 06:59 06:59 Intake Total 2174 9874 Output Total 913 925 220 Balance 5709 8954 -220 Weight 78.3 kg 85.8 kg General appearance: PRESENT: no acute distress Head exam: PRESENT: normocephalic Eye exam: ABSENT: scleral icterus Ear exam: PRESENT: normal external ear exam Mouth exam: PRESENT: moist, other - Oozing blood around the mouth and lips Neck exam: ABSENT: carotid bruit, JVD, lymphadenopathy, thyromegaly Respiratory exam: PRESENT: decreased breath sounds, other - ET tube in place. ABSENT: rales, rhonchi, wheezes Cardiovascular exam: PRESENT: RRR. ABSENT: diastolic murmur, rubs, systolic murmur GI/Abdominal exam: PRESENT: diminished bowel sounds, distended, firm. ABSENT: guarding, mass, organolmegaly, rebound, tenderness Gentrourinary exam: PRESENT: indwelling catheter Extremities exam: PRESENT: other - Tends anasarca. ABSENT: calf tenderness, clubbing Neurological exam: PRESENT: altered. ABSENT: motor sensory deficit Psychiatric exam: ABSENT: homicidal ideation, suicidal ideation Skin exam: PRESENT: other - Blisters covering her body. ABSENT: cyanosis, rash Results Laboratory Results: 12/16/17 04:15 12/16/17 15:45 12/15/17 12/15/17 12/15/17 20:00 21:10 21:10 WBC RBC Hgb Hct MCV MCH MCHC RDW Plt Count Seg Neutrophils % Lymphocytes % Monocytes % Eosinophils % Basophils % Absolute Neutrophils Absolute Lymphocytes Absolute Monocytes Absolute Eosinophils Absolute Basophils Carbonic Acid HCO3/H2CO3 Ratio ABG pH ABG pCO2 ABG pO2 ABG HCO3 ABG O2 Saturation ABG Base Excess FiO2 Sodium 123.7 L Potassium 5.4 H Chloride 103 Carbon Dioxide 6 L* Anion Gap 15 BUN 16 Creatinine 1.46 H Est GFR ( Amer) 44 L Est GFR (Non-Af Amer) 36 L Glucose 571 H* 563 H* Lactic Acid Calcium 5.7 L* Magnesium Total Bilirubin AST ALT Alkaline Phosphatase Total Protein Albumin 1.3 L Amylase Lipase 12/15/17 12/15/17 12/15/17 21:40 22:05 23:15 WBC RBC Hgb Hct MCV MCH MCHC RDW Plt Count Seg Neutrophils % Lymphocytes % Monocytes % Eosinophils % Basophils % Absolute Neutrophils Absolute Lymphocytes Absolute Monocytes Absolute Eosinophils Absolute Basophils Carbonic Acid 0.56 L HCO3/H2CO3 Ratio 9:1 ABG pH 7.07 L* ABG pCO2 18.7 L* ABG pO2 99.4 ABG HCO3 5.3 L ABG O2 Saturation 94.9 ABG Base Excess -23.0 FiO2 60% Sodium Potassium Chloride Carbon Dioxide Anion Gap BUN Creatinine Est GFR ( Amer) Est GFR (Non-Af Amer) Glucose 573 H* 587 H* Lactic Acid Calcium Magnesium Total Bilirubin AST ALT Alkaline Phosphatase Total Protein Albumin Amylase Lipase 12/16/17 12/16/17 12/16/17 00:00 00:00 00:00 WBC 19.9 H RBC 3.55 L Hgb 10.0 L D Hct 31.6 L MCV 89 MCH 28.2 MCHC 31.7 L RDW 19.1 H Plt Count 48 L Seg Neutrophils % Not Reportable Lymphocytes % Not Reportable Monocytes % Not Reportable Eosinophils % Not Reportable Basophils % Not Reportable Absolute Neutrophils Not Reportable Absolute Lymphocytes Not Reportable Absolute Monocytes Not Reportable Absolute Eosinophils Not Reportable Absolute Basophils Not Reportable Carbonic Acid 0.72 L HCO3/H2CO3 Ratio 12:1 ABG pH 7.18 L* ABG pCO2 23.8 L ABG pO2 81.2 ABG HCO3 8.8 L ABG O2 Saturation 93.5 L ABG Base Excess -17.9 FiO2 60% Sodium 125.4 L Potassium 4.8 Chloride 102 Carbon Dioxide 9 L* Anion Gap 14 BUN 18 Creatinine 1.45 H Est GFR ( Amer) 44 L Est GFR (Non-Af Amer) 36 L Glucose 586 H* Lactic Acid Calcium 5.8 L* Magnesium 1.8 Total Bilirubin AST ALT Alkaline Phosphatase Total Protein Albumin Amylase Lipase 12/16/17 12/16/17 12/16/17 00:00 01:10 02:05 WBC RBC Hgb Hct MCV MCH MCHC RDW Plt Count Seg Neutrophils % Lymphocytes % Monocytes % Eosinophils % Basophils % Absolute Neutrophils Absolute Lymphocytes Absolute Monocytes Absolute Eosinophils Absolute Basophils Carbonic Acid HCO3/H2CO3 Ratio ABG pH ABG pCO2 ABG pO2 ABG HCO3 ABG O2 Saturation ABG Base Excess FiO2 Sodium Potassium Chloride Carbon Dioxide Anion Gap BUN Creatinine Est GFR ( Amer) Est GFR (Non-Af Amer) Glucose 623 H* 614 H* Lactic Acid 11.6 H Calcium Magnesium Total Bilirubin AST ALT Alkaline Phosphatase Total Protein Albumin Amylase Lipase 12/16/17 12/16/17 12/16/17 03:05 04:15 04:15 WBC 19.9 H RBC 3.70 L Hgb 10.5 L Hct 32.4 L MCV 87 MCH 28.4 MCHC 32.5 RDW 19.3 H Plt Count 46 L Seg Neutrophils % Not Reportable Lymphocytes % Not Reportable Monocytes % Not Reportable Eosinophils % Not Reportable Basophils % Not Reportable Absolute Neutrophils Not Reportable Absolute Lymphocytes Not Reportable Absolute Monocytes Not Reportable Absolute Eosinophils Not Reportable Absolute Basophils Not Reportable Carbonic Acid 0.72 L HCO3/H2CO3 Ratio 12:1 ABG pH 7.21 L ABG pCO2 23.8 L ABG pO2 79.6 L ABG HCO3 9.3 L ABG O2 Saturation 93.6 L ABG Base Excess -16.9 FiO2 65% Sodium Potassium Chloride Carbon Dioxide Anion Gap BUN Creatinine Est GFR ( Amer) Est GFR (Non-Af Amer) Glucose 604 H* Lactic Acid Calcium Magnesium Total Bilirubin AST ALT Alkaline Phosphatase Total Protein Albumin Amylase Lipase 12/16/17 12/16/17 12/16/17 04:15 04:15 05:10 WBC RBC Hgb Hct MCV MCH MCHC RDW Plt Count Seg Neutrophils % Lymphocytes % Monocytes % Eosinophils % Basophils % Absolute Neutrophils Absolute Lymphocytes Absolute Monocytes Absolute Eosinophils Absolute Basophils Carbonic Acid HCO3/H2CO3 Ratio ABG pH ABG pCO2 ABG pO2 ABG HCO3 ABG O2 Saturation ABG Base Excess FiO2 Sodium 123.1 L Potassium 4.8 Chloride 97 L Carbon Dioxide 9 L* Anion Gap 17 BUN 20 Creatinine 1.46 H Est GFR ( Amer) 44 L Est GFR (Non-Af Amer) 36 L Glucose 554 H* 507 H* Lactic Acid 10.1 H Calcium 6.1 L* Magnesium 1.9 Total Bilirubin 1.8 H AST 3425 H ALT 1679 H Alkaline Phosphatase 125 Total Protein 3.1 L Albumin 1.3 L Amylase Lipase 12/16/17 12/16/17 12/16/17 06:10 07:05 08:30 WBC RBC Hgb Hct MCV MCH MCHC RDW Plt Count Seg Neutrophils % Lymphocytes % Monocytes % Eosinophils % Basophils % Absolute Neutrophils Absolute Lymphocytes Absolute Monocytes Absolute Eosinophils Absolute Basophils Carbonic Acid HCO3/H2CO3 Ratio ABG pH ABG pCO2 ABG pO2 ABG HCO3 ABG O2 Saturation ABG Base Excess FiO2 Sodium Potassium Chloride Carbon Dioxide Anion Gap BUN Creatinine Est GFR ( Amer) Est GFR (Non-Af Amer) Glucose 492 H* 440 H* Lactic Acid 9.2 H Calcium Magnesium Total Bilirubin AST ALT Alkaline Phosphatase Total Protein Albumin Amylase Lipase 12/16/17 12/16/17 12/16/17 08:30 09:24 09:24 WBC RBC Hgb Hct MCV MCH MCHC RDW Plt Count Seg Neutrophils % Lymphocytes % Monocytes % Eosinophils % Basophils % Absolute Neutrophils Absolute Lymphocytes Absolute Monocytes Absolute Eosinophils Absolute Basophils Carbonic Acid HCO3/H2CO3 Ratio ABG pH ABG pCO2 ABG pO2 ABG HCO3 ABG O2 Saturation ABG Base Excess FiO2 Sodium 126.4 L Potassium 4.4 Chloride 98 Carbon Dioxide 12 L Anion Gap 16 BUN 20 Creatinine 1.45 H Est GFR ( Amer) 44 L Est GFR (Non-Af Amer) 36 L Glucose 420 H* 408 H* Lactic Acid Calcium 5.9 L* Magnesium Total Bilirubin AST ALT Alkaline Phosphatase Total Protein Albumin 1.2 L Amylase 269 H Lipase 1356.5 H 12/16/17 12/16/17 12/16/17 10:50 15:30 15:45 WBC RBC Hgb Hct MCV MCH MCHC RDW Plt Count Seg Neutrophils % Lymphocytes % Monocytes % Eosinophils % Basophils % Absolute Neutrophils Absolute Lymphocytes Absolute Monocytes Absolute Eosinophils Absolute Basophils Carbonic Acid 0.92 L 0.88 L HCO3/H2CO3 Ratio 12:1 14:1 ABG pH 7.21 L 7.27 L ABG pCO2 30.6 L 29.1 L ABG pO2 63.7 L 68.7 L ABG HCO3 11.9 L 13.0 L ABG O2 Saturation 88.0 L 91.7 L ABG Base Excess -14.8 -12.6 FiO2 70% 100% Sodium 130.2 L Potassium 4.2 Chloride 99 Carbon Dioxide 15 L Anion Gap 16 BUN 21 H Creatinine 1.68 H Est GFR ( Amer) 37 L Est GFR (Non-Af Amer) 31 L Glucose 230 H Lactic Acid Calcium 6.1 L* Magnesium Total Bilirubin AST ALT Alkaline Phosphatase Total Protein Albumin Amylase Lipase 12/16/17 12/16/17 15:45 19:42 WBC RBC Hgb Hct MCV MCH MCHC RDW Plt Count Seg Neutrophils % Lymphocytes % Monocytes % Eosinophils % Basophils % Absolute Neutrophils Absolute Lymphocytes Absolute Monocytes Absolute Eosinophils Absolute Basophils Carbonic Acid 0.95 L HCO3/H2CO3 Ratio 13:1 ABG pH 7.24 L ABG pCO2 31.4 L ABG pO2 60.7 L ABG HCO3 13.2 L ABG O2 Saturation 87.5 L ABG Base Excess -13.0 FiO2 100% Sodium Potassium Chloride Carbon Dioxide Anion Gap BUN Creatinine Est GFR ( Amer) Est GFR (Non-Af Amer) Glucose Lactic Acid Calcium Magnesium Total Bilirubin AST ALT Alkaline Phosphatase Total Protein Albumin 1.8 L Amylase Lipase 12/14/17 02:10 Blood Blood Culture - Final Klebsiella Pneumoniae 12/15/17 05:40 CK-MB (CK-2) 12.50 H Troponin I 0.186 Impressions: Head CT 12/13/17 22:25 IMPRESSION: No acute intracranial abnormality. Head CTA 12/13/17 22:25 IMPRESSION: Limitation due to motion artifact at the level of the mid cervical spine; consider repeat or surveillance CTA of the neck as clinically warranted. Else, unremarkable CTA of the head and neck. Neck CTA 12/13/17 22:25 IMPRESSION: Limitation due to motion artifact at the level of the mid cervical spine; consider repeat or surveillance CTA of the neck as clinically warranted. Else, unremarkable CTA of the head and neck. Abdomen X-Ray 12/16/17 00:00 IMPRESSION: PAUCITY OF BOWEL GAS. NASOGASTRIC TUBE WITH THE TIP IN THE STOMACH. NO RADIOGRAPHIC EVIDENCE FOR ACUTE ABDOMINAL DISEASE. Chest X-Ray 12/16/17 06:00 IMPRESSION: 1. Significant interval increase in bilateral airspace opacities with likely now moderate bilateral pleural effusions. Plan Discharge Plan: She is being transferred to [facility] ICU where she can receive more aggressive intervention including CRRT. Patient also needs evaluation by infectious disease. Time Spent: Greater than 30 Minutes
[2017-12-17] MEDS: IPRATROPIUM/ALBUTEROL 0.5-2.5 MG/3 ML AMPUL NEB SCH (02:46)
--- NOTE | 2017-12-17 08:58 | PDOC PROGRESS REPORT ---
Subjective Progress Note for:: 12/16/17 Subjective:: intubated Reason For Visit: CVA SEPSIS UTI PNEUMONIA Physical Exam Vital Signs: Temp Pulse Resp BP Pulse Ox 99.3 F 102 H 28 H 88/63 L 95 12/16/17 07:50 12/16/17 07:50 12/16/17 07:50 12/16/17 07:50 12/16/17 07:50 Intake & Output 12/15/17 12/16/17 12/17/17 06:59 06:59 06:59 Intake Total 6204 9879 Output Total 495 925 30 Balance 5709 8954 -30 Weight 78.3 kg 85.8 kg General appearance: PRESENT: no acute distress, well-developed. ABSENT: cooperative, disheveled Head exam: PRESENT: atraumatic, normocephalic Eye exam: PRESENT: conjunctiva pale. ABSENT: EOMI, nystagmus, periorbital swelling, scleral icterus Mouth exam: PRESENT: dry mucosa, neck supple, tongue midline, other - ET tube Neck exam: ABSENT: carotid bruit, JVD, lymphadenopathy, thyromegaly, tracheal deviation, tracheostomy Respiratory exam: PRESENT: crackles, decreased breath sounds, prolonged expiratory phas, rhonchi, symmetrical, unlabored, wheezes. ABSENT: retraction, stridor Cardiovascular exam: PRESENT: RRR, +S1, +S2, systolic murmur Pulses: PRESENT: normal radial pulses GI/Abdominal exam: PRESENT: diminished bowel sounds - [id number] Extremities exam: ABSENT: calf tenderness, clubbing Musculoskeletal exam: ABSENT: deformity, dislocation Neurological exam: ABSENT: alert, awake, oriented to person Skin exam: PRESENT: dry, warm Results Laboratory Results: 12/16/17 04:15 12/16/17 07:05 12/15/17 12/15/17 12/15/17 10:00 11:25 14:40 WBC RBC Hgb Hct MCV MCH MCHC RDW Plt Count Seg Neutrophils % Lymphocytes % Monocytes % Eosinophils % Basophils % Absolute Neutrophils Absolute Lymphocytes Absolute Monocytes Absolute Eosinophils Absolute Basophils Carbonic Acid 0.60 L HCO3/H2CO3 Ratio 10:1 ABG pH 7.12 L* ABG pCO2 19.9 L* ABG pO2 123.6 H ABG HCO3 6.3 L ABG O2 Saturation 97.3 ABG Base Excess -21.2 FiO2 65% Sodium 126.3 L Potassium 5.4 H Chloride 99 Carbon Dioxide 7 L* Anion Gap 20 H BUN 17 Creatinine 1.34 H Est GFR ( Amer) 48 L Est GFR (Non-Af Amer) 40 L Glucose 646 H* Lactic Acid Calcium 6.2 L* Magnesium Total Bilirubin AST ALT Alkaline Phosphatase Total Protein Albumin Urine Color YELLOW Urine Appearance SLIGHTLY-CLOUDY Urine pH 5.0 Ur Specific [place] 1.014 Urine Protein 30 H Urine Glucose (UA) >=500 H Urine Ketones NEGATIVE Urine Blood LARGE H Urine Nitrite NEGATIVE Ur Leukocyte Esterase SMALL H Urine WBC (Auto) 18 Urine RBC (Auto) 5 12/15/17 12/15/17 12/15/17 14:40 18:00 19:10 WBC RBC Hgb Hct MCV MCH MCHC RDW Plt Count Seg Neutrophils % Lymphocytes % Monocytes % Eosinophils % Basophils % Absolute Neutrophils Absolute Lymphocytes Absolute Monocytes Absolute Eosinophils Absolute Basophils Carbonic Acid HCO3/H2CO3 Ratio ABG pH ABG pCO2 ABG pO2 ABG HCO3 ABG O2 Saturation ABG Base Excess FiO2 Sodium Potassium Chloride Carbon Dioxide Anion Gap BUN Creatinine Est GFR ( Amer) Est GFR (Non-Af Amer) Glucose 601 H* 601 H* Lactic Acid Calcium Magnesium Total Bilirubin AST ALT Alkaline Phosphatase Total Protein Albumin 1.4 L Urine Color Urine Appearance Urine pH Ur Specific [place] Urine Protein Urine Glucose (UA) Urine Ketones Urine Blood Urine Nitrite Ur Leukocyte Esterase Urine WBC (Auto) Urine RBC (Auto) 12/15/17 12/15/17 12/15/17 20:00 21:10 21:10 WBC RBC Hgb Hct MCV MCH MCHC RDW Plt Count Seg Neutrophils % Lymphocytes % Monocytes % Eosinophils % Basophils % Absolute Neutrophils Absolute Lymphocytes Absolute Monocytes Absolute Eosinophils Absolute Basophils Carbonic Acid HCO3/H2CO3 Ratio ABG pH ABG pCO2 ABG pO2 ABG HCO3 ABG O2 Saturation ABG Base Excess FiO2 Sodium 123.7 L Potassium 5.4 H Chloride 103 Carbon Dioxide 6 L* Anion Gap 15 BUN 16 Creatinine 1.46 H Est GFR ( Amer) 44 L Est GFR (Non-Af Amer) 36 L Glucose 571 H* 563 H* Lactic Acid Calcium 5.7 L* Magnesium Total Bilirubin AST ALT Alkaline Phosphatase Total Protein Albumin 1.3 L Urine Color Urine Appearance Urine pH Ur Specific [place] Urine Protein Urine Glucose (UA) Urine Ketones Urine Blood Urine Nitrite Ur Leukocyte Esterase Urine WBC (Auto) Urine RBC (Auto) 03/06/18 03/06/18 03/06/18 21:40 22:05 23:15 WBC RBC Hgb Hct MCV MCH MCHC RDW Plt Count Seg Neutrophils % Lymphocytes % Monocytes % Eosinophils % Basophils % Absolute Neutrophils Absolute Lymphocytes Absolute Monocytes Absolute Eosinophils Absolute Basophils Carbonic Acid 0.56 L HCO3/H2CO3 Ratio 9:1 ABG pH 7.07 L* ABG pCO2 18.7 L* ABG pO2 99.4 ABG HCO3 5.3 L ABG O2 Saturation 94.9 ABG Base Excess -23.0 FiO2 60% Sodium Potassium Chloride Carbon Dioxide Anion Gap BUN Creatinine Est GFR ( Amer) Est GFR (Non-Af Amer) Glucose 573 H* 587 H* Lactic Acid Calcium Magnesium Total Bilirubin AST ALT Alkaline Phosphatase Total Protein Albumin Urine Color Urine Appearance Urine pH Ur Specific [place] Urine Protein Urine Glucose (UA) Urine Ketones Urine Blood Urine Nitrite Ur Leukocyte Esterase Urine WBC (Auto) Urine RBC (Auto) 12/16/17 12/16/17 12/16/17 00:00 00:00 00:00 WBC 19.9 H RBC 3.55 L Hgb 10.0 L D Hct 31.6 L MCV 89 MCH 28.2 MCHC 31.7 L RDW 19.1 H Plt Count 48 L Seg Neutrophils % Not Reportable Lymphocytes % Not Reportable Monocytes % Not Reportable Eosinophils % Not Reportable Basophils % Not Reportable Absolute Neutrophils Not Reportable Absolute Lymphocytes Not Reportable Absolute Monocytes Not Reportable Absolute Eosinophils Not Reportable Absolute Basophils Not Reportable Carbonic Acid 0.72 L HCO3/H2CO3 Ratio 12:1 ABG pH 7.18 L* ABG pCO2 23.8 L ABG pO2 81.2 ABG HCO3 8.8 L ABG O2 Saturation 93.5 L ABG Base Excess -17.9 FiO2 60% Sodium 125.4 L Potassium 4.8 Chloride 102 Carbon Dioxide 9 L* Anion Gap 14 BUN 18 Creatinine 1.45 H Est GFR ( Amer) 44 L Est GFR (Non-Af Amer) 36 L Glucose 586 H* Lactic Acid Calcium 5.8 L* Magnesium 1.8 Total Bilirubin AST ALT Alkaline Phosphatase Total Protein Albumin Urine Color Urine Appearance Urine pH Ur Specific [place] Urine Protein Urine Glucose (UA) Urine Ketones Urine Blood Urine Nitrite Ur Leukocyte Esterase Urine WBC (Auto) Urine RBC (Auto) 12/16/17 12/16/17 12/16/17 00:00 01:10 02:05 WBC RBC Hgb Hct MCV MCH MCHC RDW Plt Count Seg Neutrophils % Lymphocytes % Monocytes % Eosinophils % Basophils % Absolute Neutrophils Absolute Lymphocytes Absolute Monocytes Absolute Eosinophils Absolute Basophils Carbonic Acid HCO3/H2CO3 Ratio ABG pH ABG pCO2 ABG pO2 ABG HCO3 ABG O2 Saturation ABG Base Excess FiO2 Sodium Potassium Chloride Carbon Dioxide Anion Gap BUN Creatinine Est GFR ( Amer) Est GFR (Non-Af Amer) Glucose 623 H* 614 H* Lactic Acid 11.6 H Calcium Magnesium Total Bilirubin AST ALT Alkaline Phosphatase Total Protein Albumin Urine Color Urine Appearance Urine pH Ur Specific [place] Urine Protein Urine Glucose (UA) Urine Ketones Urine Blood Urine Nitrite Ur Leukocyte Esterase Urine WBC (Auto) Urine RBC (Auto) 12/16/17 12/16/17 12/16/17 03:05 04:15 04:15 WBC 19.9 H RBC 3.70 L Hgb 10.5 L Hct 32.4 L MCV 87 MCH 28.4 MCHC 32.5 RDW 19.3 H Plt Count 46 L Seg Neutrophils % Not Reportable Lymphocytes % Not Reportable Monocytes % Not Reportable Eosinophils % Not Reportable Basophils % Not Reportable Absolute Neutrophils Not Reportable Absolute Lymphocytes Not Reportable Absolute Monocytes Not Reportable Absolute Eosinophils Not Reportable Absolute Basophils Not Reportable Carbonic Acid 0.72 L HCO3/H2CO3 Ratio 12:1 ABG pH 7.21 L ABG pCO2 23.8 L ABG pO2 79.6 L ABG HCO3 9.3 L ABG O2 Saturation 93.6 L ABG Base Excess -16.9 FiO2 65% Sodium Potassium Chloride Carbon Dioxide Anion Gap BUN Creatinine Est GFR ( Amer) Est GFR (Non-Af Amer) Glucose 604 H* Lactic Acid Calcium Magnesium Total Bilirubin AST ALT Alkaline Phosphatase Total Protein Albumin Urine Color Urine Appearance Urine pH Ur Specific [place] Urine Protein Urine Glucose (UA) Urine Ketones Urine Blood Urine Nitrite Ur Leukocyte Esterase Urine WBC (Auto) Urine RBC (Auto) 12/16/17 12/16/17 12/16/17 04:15 04:15 05:10 WBC RBC Hgb Hct MCV MCH MCHC RDW Plt Count Seg Neutrophils % Lymphocytes % Monocytes % Eosinophils % Basophils % Absolute Neutrophils Absolute Lymphocytes Absolute Monocytes Absolute Eosinophils Absolute Basophils Carbonic Acid HCO3/H2CO3 Ratio ABG pH ABG pCO2 ABG pO2 ABG HCO3 ABG O2 Saturation ABG Base Excess FiO2 Sodium 123.1 L Potassium 4.8 Chloride 97 L Carbon Dioxide 9 L* Anion Gap 17 BUN 20 Creatinine 1.46 H Est GFR ( Amer) 44 L Est GFR (Non-Af Amer) 36 L Glucose 554 H* 507 H* Lactic Acid 10.1 H Calcium 6.1 L* Magnesium 1.9 Total Bilirubin 1.8 H AST 3425 H ALT 1679 H Alkaline Phosphatase 125 Total Protein 3.1 L Albumin 1.3 L Urine Color Urine Appearance Urine pH Ur Specific [place] Urine Protein Urine Glucose (UA) Urine Ketones Urine Blood Urine Nitrite Ur Leukocyte Esterase Urine WBC (Auto) Urine RBC (Auto) 12/16/17 12/16/17 06:10 07:05 WBC RBC Hgb Hct MCV MCH MCHC RDW Plt Count Seg Neutrophils % Lymphocytes % Monocytes % Eosinophils % Basophils % Absolute Neutrophils Absolute Lymphocytes Absolute Monocytes Absolute Eosinophils Absolute Basophils Carbonic Acid HCO3/H2CO3 Ratio ABG pH ABG pCO2 ABG pO2 ABG HCO3 ABG O2 Saturation ABG Base Excess FiO2 Sodium Potassium Chloride Carbon Dioxide Anion Gap BUN Creatinine Est GFR ( Amer) Est GFR (Non-Af Amer) Glucose 492 H* 440 H* Lactic Acid Calcium Magnesium Total Bilirubin AST ALT Alkaline Phosphatase Total Protein Albumin Urine Color Urine Appearance Urine pH Ur Specific [place] Urine Protein Urine Glucose (UA) Urine Ketones Urine Blood Urine Nitrite Ur Leukocyte Esterase Urine WBC (Auto) Urine RBC (Auto) 12/15/17 05:40 CK-MB (CK-2) 12.50 H Troponin I 0.186 Impressions: Head CT 12/13/17 22:25 IMPRESSION: No acute intracranial abnormality. Head CTA 12/13/17 22:25 IMPRESSION: Limitation due to motion artifact at the level of the mid cervical spine; consider repeat or surveillance CTA of the neck as clinically warranted. Else, unremarkable CTA of the head and neck. Neck CTA 12/13/17 22:25 IMPRESSION: Limitation due to motion artifact at the level of the mid cervical spine; consider repeat or surveillance CTA of the neck as clinically warranted. Else, unremarkable CTA of the head and neck. Chest X-Ray 12/16/17 06:00 IMPRESSION: 1. Significant interval increase in bilateral airspace opacities with likely now moderate bilateral pleural effusions. Assessment & Plan - Diagnosis (1) Acute respiratory failure Qualifiers: Respiratory failure complication: unspecified whether with hypoxia or hypercapnia Qualified Code(s): J96.00 - Acute respiratory failure, unspecified whether with hypoxia or hypercapnia Is this a current diagnosis for this admission?: Yes Plan: compensaste for acidosis Labs- All tests 24 hr 12/14/17 12/14/17 12/15/17 14:57 19:45 05:40 ABG pH 7.07 L* 7.08 L* 7.14 L* ABG pCO2 35.6 21.7 L 21.3 L ABG pO2 68.2 L 150.1 H 147.0 H FiO2 4L 70% 12/15/17 11:25 ABG pH 7.12 L* ABG pCO2 ABG pO2 123.6 H FiO2 65% Labs- All tests 24 hr 12/13/17 12/14/17 12/14/17 22:24 05:50 19:45 FiO2 70% Carbon Dioxide 18 L 13 L 12/15/17 05:40 FiO2 Carbon Dioxide 8 L* (2) Aspiration pneumonia Qualifiers: Aspiration pneumonia type: unspecified Laterality: bilateral Lung location: unspecified part of lung Qualified Code(s): J69.0 - Pneumonitis due to inhalation of food and vomit Is this a current diagnosis for this admission?: Yes Plan: gstric content in ET tube (3) Severe sepsis Is this a current diagnosis for this admission?: Yes Plan: 3 pressors Labs- All tests 24 hr 12/13/17 12/14/17 12/15/17 22:24 05:50 06:45 WBC 5.9 12.3 H D 20.0 H Band Neutrophils % 21 H 14 H (4) Multiple sclerosis Is this a current diagnosis for this admission?: Yes - Time Total Critical Time (Minutes): 45
[2017-12-17] MEDS ORDERED: PHARMACY COMMUNICATION ORDER MC SCH (18:00)
== END 2017-12-16 20:48 | disposition short-term general hospital (02) | DRG 871 ==
LOC: ER 22:19 → EH 12-14 01:48 → ICU 12-14 10:30
PROVIDERS: ADMIT Internal Medicine; ATTEND Internal Medicine
PROC: 5A1945Z Respiratory Ventilation, 24-96 Consecutive Hours (ICD-10-PCS; principal; 2017-12-14)
PROC: 0BH17EZ Insertion of Endotracheal Airway into Trachea, Via Natural or Artificial Opening (ICD-10-PCS; 2017-12-14)
PROC: 3E0F73Z Introduction of Anti-inflammatory into Respiratory Tract, Via Natural or Artificial Opening (ICD-10-PCS; 2017-12-14)
PROC: 03HY32Z Insertion of Monitoring Device into Upper Artery, Percutaneous Approach (ICD-10-PCS; 2017-12-14)
PROC: 4A133B1 Monitoring of Arterial Pressure, Peripheral, Percutaneous Approach (ICD-10-PCS; 2017-12-14)
PROC: 02H633Z Insertion of Infusion Device into Right Atrium, Percutaneous Approach (ICD-10-PCS; 2017-12-14)
PROC: B244ZZZ Ultrasonography of Right Heart (ICD-10-PCS; 2017-12-14)
PROC: 30233N1 Transfusion of Nonautologous Red Blood Cells into Peripheral Vein, Percutaneous Approach (ICD-10-PCS; 2017-12-15)
DX: A41.89 Other specified sepsis (principal); J96.01 Acute respiratory failure with hypoxia; R65.21 Severe sepsis with septic shock; J69.0 Pneumonitis due to inhalation of food and vomit; N17.0 Acute kidney failure with tubular necrosis; G82.20 Paraplegia, unspecified; E87.2 Acidosis; E87.1 Hypo-osmolality and hyponatremia; B49 Unspecified mycosis; I47.1 Supraventricular tachycardia; N39.0 Urinary tract infection, site not specified; G45.9 Transient cerebral ischemic attack, unspecified; R47.01 Aphasia; B96.1 Klebsiella pneumoniae [K. pneumoniae] as the cause of diseases classified elsewhere; G35 Multiple sclerosis; D64.9 Anemia, unspecified; R29.810 Facial weakness; E83.51 Hypocalcemia; R73.9 Hyperglycemia, unspecified; I95.89 Other hypotension; D69.6 Thrombocytopenia, unspecified; K59.09 Other constipation; L89.152 Pressure ulcer of sacral region, stage 2; R47.81 Slurred speech; Z79.82 Long term (current) use of aspirin; Z79.899 Other long term (current) drug therapy; Z74.01 Bed confinement status; Z78.1 Physical restraint status; Z90.710 Acquired absence of both cervix and uterus; Z82.49 Family history of ischemic heart disease and other diseases of the circulatory system
CPT/HCPCS: 31500; 36415; 36430; 70450; 70496; 70498; 71045; 74019; 80048; 80053; 80202; 81001; 82040; 82150; 82550; 82553; 82803; 82947; 82962; 83605; 83690; 83735; 84100; 84484; 85025; 85362; 85379; 85384; 85610; 85730; 86022; 86850; 86900; 86901; 86920; 87040; 87070; 87077; 87086; 87088; 87186; 87205; 93005; 93010; 93306; 94002; 94003; 94640; 96361; 96365; 99291; C1751; J0131; J0610; J0692; J0743; J1642; J1644; J1720; J1815; J1940; J1956; J2248; J2250; J2370; J2543; J3370; J3475; J3490; J7030; J7050; J7060; J7620; P9016; P9047; S0164